=== PATIENT | male | born 1985 | race Caucasian/White ===

== ENCOUNTER 2016-03-30 14:37 | Inpatient (IN) | payer OTHER ==
[~2016-03-30] VITALS: Ht 193 cm; Wt 97.0 kg
[~2016-03-30 14:37] MED LIST: DAKI0.12 TOPICAL; LACTCAP8 PO; LYRI200C PO; VESI5TAB PO
[2016-03-30 14:39] VITALS: BP 123/67; PULSE 90; RESP 15; TEMP 98.2; O2SAT 96
[2016-03-30 15:53] VITALS: BP 163/66; PULSE 79; RESP 15; O2SAT 98
[2016-03-30] MEDS ORDERED: MSIR15 PO (16:48)
[2016-03-30] MEDS ORDERED: SOMA350T PO (16:48)
[2016-03-30] MEDS ORDERED: MORP1TAB25 PO (16:48)
[2016-03-30] MEDS ORDERED: BACL10TA PO (16:48)
[2016-03-30] MEDS ORDERED: ZYVO600T PO (16:48)
[2016-03-30] MEDS ORDERED: LIDO2GEL11 TOPICAL (16:48)
[2016-03-30] MEDS ORDERED: DAKI0.12 TOPICAL (16:50)
[2016-03-30 17:18] LABS: AUTOMATED NEUTROPHIL # 7.3 TH/MM3 (1.8-7.7); BASOPHIL # 0.1 TH/MM3 (0-0.2); BASOPHIL % 0.7 % (0.0-2.0); EOSINOPHIL # 0.1 TH/MM3 (0-0.4); EOSINOPHIL % 1.1 % (0.0-4.0); HEMATOCRIT 24.1 % (39.0-51.0); HEMO FLAGS DIFF FINAL; LYMPHOCYTE # 1.3 TH/MM3 (1.0-4.8); MEAN CELL VOLUME 76.8 FL (80.0-100.0); MEAN CORPUSCULAR HEMOGLOBIN 25.3 PG (27.0-34.0); MEAN CORPUSCULAR HGB CONC 32.9 % (32.0-36.0); MONO % 3.9 % (0.0-8.0); NEUT % 80.3 % (16.0-70.0); PLATELET COUNT 325 TH/MM3 (150-450); RED BLOOD COUNT 3.13 MIL/MM3 (4.50-5.90); RED CELL DISTRIBUTION WIDTH 18.3 % (11.6-17.2)
[2016-03-30 17:28] LABS: ANION GAP 8 MEQ/L (5-15); AST (GOT) 5 U/L (15-37); BICARBONATE 28.5 MEQ/L (21.0-32.0); BLOOD UREA NITROGEN 33 MG/DL (7-18); CHLORIDE 97 MEQ/L (98-107); GLOMERULAR FILTRATION RATE 22 ML/MIN (>89); POTASSIUM 3.9 MEQ/L (3.5-5.1); SODIUM (NA) 133 MEQ/L (136-145)
[2016-03-30 17:31] LABS: ALKALINE PHOSPHATASE 75 U/L (45-117); ALT (GPT) 12 U/L (12-78); TOTAL BILIRUBIN ADULT 0.3 MG/DL (0.2-1.0)
[2016-03-30 18:14] LABS: BACTERIA, URINE MANY /hpf; BLOOD, URINE LARGE (NEG); GLUCOSE,URINE NEG (NEG); KETONE, URINE NEG (NEG); MUCUS URINE FEW /lpf (OCC); NITRITE,URINE NEG (NEG); PH, URINE 5.5 (5.0-8.5); URINE COLOR YELLOW (YELLW/STRAW)
[2016-03-30 18:15] LABS: COMMENT (UR) CATH-CULTURE IND; CULTURE IF INDICATED CATH CULTURE IND
[2016-03-30] MEDS ORDERED: SODIUM CHLORIDE 0.9% FLUSH 5 ML FLUSH FLUSH PRN (18:15)
[2016-03-30] MEDS ORDERED: MAGNESIUM HYDROXIDE SUSP 30 ML CUP PO PRN (18:15)
[2016-03-30] MEDS ORDERED: SENNOSIDES 8.6 MG TAB PO PRN (18:15)
[2016-03-30] MEDS ORDERED: BISACODYL 10 MG SUPP PR PRN (18:15)
[2016-03-30] MEDS ORDERED: PROCHLORPERAZINE 25 MG SUPP PR PRN (18:15)
--- NOTE | 2016-03-30 18:24 | HHI.HP ---
[facility]PI [facility] Primary Care Physician No Primary Care Physician Admission Diagnosis Acute renal failure Diagnoses: Travel History International Travel<30 Days: No Contact w/Intl Traveler <30 Da: No Traveled to Known Affected Are: No History of Present Illness 30 year old male with past mental history of TBI/spinal injury/paraplegia, spinal hardware infection, RASHAD/AOCD, chronic pain was sent in for acute kidney injury. The patient is on antibiotics as outpatient and his labs are followed by his infectious disease specialist, Dr. Arzola. He states he was sent in because his creatinine had increased again. 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 The patient states that for the past 10 days he's been vomiting at least daily. He does have some left upper quadrant abdominal pain. He reports a history of pancreatitis. He states that usually before he vomits he gets dizzy. He denies any relieving factors. He denies any fevers or chills. Denies any chest pain, palpitations, cough. He does self catheterize due to paraplegia. He actually reports that over the last week his urine output has increased, states the previous week his urine output seemed to have decreased. He denies any diarrhea. He continues to get home health nursing for wound VAC changes. 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 Current deficiency anemia/anemia of chronic disease Chronic pain History of pancreatitis Past Surgical History Back surgery, T11-L1 fusion with hardware placement and removal Reported Medications Probiotic (Lactobacillus Acidophilus) 1 Cap Cap 1 Cap PO BID Vesicare (Solifenacin) 5 Mg Tab 5 Mg PO DAILY Dakins Solution Quarter Strength Topical (Sodium Hypochlorite Topical) 0.125% Soln 1 Applic TOPICAL DAILY Apply to affected area(s) Lidocaine Topical (Lidocaine HCl) 2 % Jel 1 Applic TOPICAL DAILY PRN Soma (Carisoprodol) 350 Mg Tab 350 Mg PO Q8HR PRN Baclofen 10 Mg Tab 10 Mg PO TID Morphine ER (Morphine Sulfate) 30 Mg Tab 30 Mg PO TID Morphine IR (Morphine Sulfate) 15 Mg Tab 15 Mg PO Q4H PRN Zyvox (Linezolid) 600 Mg Tab 600 Mg PO BID 14 Days Lyrica (Pregabalin) 200 Mg Cap 200 Mg PO BID Allergies: Coded Allergies: Vancomycin (Verified Adverse Reaction, Intermediate, 03/30/16) *MDRO Multi-Drug Resistant Organism (Verified Adverse Reaction, Unknown, 03/30/16) 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 (back-02/11/16) extensively drug resistant Pseudomonas aeruginosa (urine) - 03/03/16 Active Ordered Medications Current Medications Medications (Trade) Dose Ordered Sig/Iam Route Start Time Stop Time Status Last Admin (NS 1000 ml Inj) 1,000 ml @ 100 mls/hr Q10H IV 03/30/16 18:14 UNV (NS Flush) 2 ml UNSCH PRN FLUSH 03/30/16 18:15 UNV (NS Flush) 2 ml BID FLUSH 03/30/16 21:00 UNV (Tylenol) 650 mg Q4H PRN PO 03/30/16 18:15 UNV (Zofran Inj) 4 mg Q6H PRN IVP 03/30/16 18:15 UNV (Compazine Supp) 25 mg Q12H PRN NH 03/30/16 18:15 UNV (Dulcolax Supp) 10 mg DAILY PRN NH 03/30/16 18:15 UNV (Milk Of Magnesia Liq) 30 ml Q12H PRN PO 03/30/16 18:15 UNV (Senokot) 17.2 mg Q12H PRN PO 03/30/16 18:15 UNV (Lovenox Inj) 30 mg Q24H SQ 03/30/16 18:15 UNV Family History Reviewed, no family history pertinent to current chief complaint Social History Occasional snuff use Denies any alcohol or drug use Physical Exam Vital Signs Vital Signs Date Time Temp Pulse Resp B/P Pulse Ox O2 Delivery O2 Flow Rate FiO2 03/30/16 15:53 73 15 98 Room Air 03/30/16 15:53 79 15 163/66 98 Room Air 03/30/16 14:39 98.2 90 15 123/67 96 Physical Exam GENERAL: Well-developed well-nourished. In no acute distress. SKIN: Warm and dry. Wound VAC in place over the thoracic spine. HEENT: Normocephalic. Pupils equal and round. Mucous membranes pink and moist. CARDIOVASCULAR: Regular rate and rhythm. No murmur appreciated. RESPIRATORY: No accessory muscle use. Clear to auscultation. Breath sounds equal bilaterally. GASTROINTESTINAL: Abdomen soft, LUE TTP, nondistended. Bowel sounds x4. No CVA tenderness. MUSCULOSKELETAL: No obvious deformities. No clubbing or cyanosis. No edema. NEUROLOGICAL: Awake and alert. Lower extremity paralysis. Strength in the upper extremities. Normal speech. PSYCHIATRIC: Appropriate mood and affect; insight and judgment normal. Laboratory Laboratory Tests Test 03/30/16 03/30/16 16:40 18:00 White Blood Count 9.0 Red Blood Count 3.13 Hemoglobin 7.9 Hematocrit 24.1 Mean Corpuscular Volume 76.8 Mean Corpuscular Hemoglobin 25.3 Mean Corpuscular Hemoglobin 32.9 Concent Red Cell Distribution Width 18.3 Platelet Count 325 Mean Platelet Volume 7.7 Neutrophils (%) (Auto) 80.3 Lymphocytes (%) (Auto) 14.0 Monocytes (%) (Auto) 3.9 Eosinophils (%) (Auto) 1.1 Basophils (%) (Auto) 0.7 Neutrophils # (Auto) 7.3 Lymphocytes # (Auto) 1.3 Monocytes # (Auto) 0.4 Eosinophils # (Auto) 0.1 Basophils # (Auto) 0.1 CBC Comment DIFF FINAL Differential Comment Sodium Level 133 Potassium Level 3.9 Chloride Level 97 Carbon Dioxide Level 28.5 Anion Gap 8 Blood Urea Nitrogen 33 Creatinine 3.32 Estimat Glomerular Filtration 22 Rate Random Glucose 89 Calcium Level 9.4 Total Bilirubin 0.3 Aspartate Amino Transf 5 (AST/SGOT) Alanine Aminotransferase 12 (ALT/SGPT) Alkaline Phosphatase 75 Total Protein 7.8 Albumin 2.8 Lipase 60 Urine Color YELLOW Urine Turbidity CLOUDY Urine pH 5.5 Urine Specific [place] 1.017 Urine Protein 100 Urine Glucose (UA) NEG Urine Ketones NEG Urine Occult Blood LARGE Urine Nitrite NEG Urine Bilirubin NEG Urine Urobilinogen LESS THAN 2.0 Urine Leukocyte Esterase LARGE Urine RBC Urine WBC Urine WBC Clumps MANY Urine Bacteria MANY Urine Mucus FEW Microscopic Urinalysis Comment CATH-CULTURE IND Date/Time Procedure Status Source Growth 03/30/16 18:00 Urine Culture Received Urine Catheterized Urine Pending Result Diagram: 03/30/16 1640 03/30/16 1640 Assessment and Plan Problem List: (1) Chronic anemia ICD Code: D64.9 Status: Chronic (2) Neurogenic bladder ICD Code: N31.9 Status: Chronic (3) Paraplegia ICD Code: G82.20 Status: Chronic (4) UTI (urinary tract infection) ICD Code: N39.0 Status: Acute (5) Acute kidney injury ICD Code: N17.9 Status: Acute Assessment and Plan 30 year old male with past mental history of TBI/spinal injury/paraplegia, spinal hardware infection, RASHAD/AOCD, chronic pain was sent in for acute kidney injury Acute kidney injury: Likely secondary to GI losses. Creatinine 3.32, previously 1.77 on 03/25/16. Renal ultrasound 03/05 showed mild increase in echogenicity. IVF. Follow-up BMP. Consult nephrology. LUQ Abdominal pain and vomiting: Unclear etiology. Lipase within normal limits. Consult gastroenterology. Supportive care with IVF and antiemetics. Abnormal UA: UA with evidence of possible infection. The patient self catheterizes. Previous urine culture with resistant Pseudomonas, sensitive only to Zosyn, will give renally adjusted IV Zosyn and consult patient's infectious disease specialist. Follow up wound culture. Chronic back wound with wound VAC: backend developer consult to continue wound VAC care. History of TBI and spinal injury with resultant paraplegia and chronic pain: Chronic, stable. Continue Lyrica, topical lidocaine, Soma as needed, baclofen scheduled, morphine ER scheduled, morphine IR as needed. Iron deficiency anemia/anemia of chronic disease: Hemoglobin 7.9, previously 8.1 on previous admission. Chronic, stable. DVT prophylaxis: SCDs Written by Shalom Knutson, acting as scribe for Dr. Case on 03/30/16 at 18:52. The documentation accurately reflects the work performed [id number] by me Dr. Case on 03/30/16 at 18:52. Discussed Condition With Patient with family at bedside Discussed with ED physician Problem Qualifiers (1) UTI (urinary tract infection): Qualified Code: N39.0 - Urinary tract infection without hematuria, site unspecified Shalom Knutson Mar 30, 2016 18:23 Subha Case MD Mar 30, 2016 19:28
[2016-03-30] MEDS ORDERED: LIDOCAINE 2% JELLY 30 ML TUBE TOPICAL PRN (18:30)
--- NOTE | 2016-03-30 18:40 | PD ---
HPI Chief Complaint: Abnormal Results Time Seen by Provider: 15:52 Travel History International Travel<30 days: No Contact w/Intl Traveler<30days: No Traveled to known affect area: No History of Present Illness HPI Patient is a 30-year-old male sent in by Dr. Arzola due to increasing creatinine. Patient had an injury to T7 6 months ago and is currently paralyzed. He developed an infection in his back and has been on antibiotics for this. Most recently he is on Linezolid. He had blood work drawn that showed he had a creatinine that was over 3 and was told to come to the emergency department. He says he has been feeling nauseous with some vomiting. He says he has had some left-sided abdominal pain. Currently he does not feel nauseous. He says he has noticed that his urine seems to be more cloudy lately. He self catheters to urinate. He denies any other complaints at this time. PFSH Past Medical History Autoimmune Disease: No Heart Rhythm Problems: No Cancer: No Cardiovascular Problems: Yes High Cholesterol: No Chest Pain: No Congestive Heart Failure: No Diminished Hearing: No Deep Vein Thrombosis: Yes (left arm) Endocrine: No Genitourinary: Yes (RECURRENT UTI, NEUROGENIC BLADDER) Hypertension: Yes Immune Disorder: No Implanted Vascular Access Dvce: No Musculoskeletal: Yes (PARAPLEGIA) Neurologic: Yes (SPINAL INJURY AT T7) Psychiatric: No Reproductive: No Respiratory: No Past Surgical History Body Medical Devices: UPPER TORSO BRACE Joint Replacement: Yes (hardware in femur and back ) Neurologic Surgery: Yes Pacemaker: No Other Surgery: Yes Social History Alcohol Use: No Tobacco Use: No (CHEWING TOBACCO DAILY) Substance Use: No Allergies-Medications (Allergen,Severity, Reaction): Coded Allergies: Vancomycin (Verified Adverse Reaction, Intermediate, 03/30/16) *MDRO Multi-Drug Resistant Organism (Verified Adverse Reaction, Unknown, 03/30/16) 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 (back-02/11/16) extensively drug resistant Pseudomonas aeruginosa (urine) - 03/03/16 Reported Meds & Prescriptions Reported Meds & Active Scripts Active Probiotic (Lactobacillus Acidophilus) 1 Cap Cap 1 Cap PO BID Vesicare (Solifenacin) 5 Mg Tab 5 Mg PO DAILY Reported Dakins Solution Quarter Strength Topical (Sodium Hypochlorite Topical) 0.125% Soln 1 Applic TOPICAL DAILY Apply to affected area(s) Lidocaine Topical (Lidocaine HCl) 2 % Jel 1 Applic TOPICAL DAILY PRN Soma (Carisoprodol) 350 Mg Tab 350 Mg PO Q8HR PRN Baclofen 10 Mg Tab 10 Mg PO TID Morphine ER (Morphine Sulfate) 30 Mg Tab 30 Mg PO TID Morphine IR (Morphine Sulfate) 15 Mg Tab 15 Mg PO Q4H PRN Zyvox (Linezolid) 600 Mg Tab 600 Mg PO BID 14 Days Lyrica (Pregabalin) 200 Mg Cap 200 Mg PO BID Review of Systems Except as stated in HPI: all other systems reviewed are Neg General / Constitutional: No: Fever, Chills HENT: No: Headaches, Lightheadedness Cardiovascular: No: Chest Pain or Discomfort Respiratory: No: Shortness of Breath Gastrointestinal: Positive: Nausea, Abdominal Pain Musculoskeletal: No: Myalgias Skin: No Rash, No Change in Pigmentation Neurologic: No: Weakness, Dizziness Physical Exam Narrative GENERAL: Awake and alert, in no acute distress SKIN: Warm and dry. Wound VAC in place on the back. HEAD: Atraumatic. Normocephalic. EYES: Pupils equal and round. No scleral icterus. ENT: Mucous membranes pink and moist. NECK: Trachea midline. No JVD. CARDIOVASCULAR: Regular rate and rhythm. No murmur appreciated. RESPIRATORY: No accessory muscle use. Clear to auscultation. Breath sounds equal bilaterally. GASTROINTESTINAL: Abdomen soft, non-tender, nondistended. MUSCULOSKELETAL: No obvious deformities. No clubbing. No cyanosis. Bilateral 2 + edema of the lower extremities. NEUROLOGICAL: Awake and alert. No obvious cranial nerve deficits. Unable to move his lower extremities. Normal speech. PSYCHIATRIC: Appropriate mood and affect; insight and judgment normal. Data Data Last Documented VS Vital Signs Date Time Temp Pulse Resp B/P Pulse Ox O2 Delivery O2 Flow Rate FiO2 03/30/16 15:53 73 15 98 Room Air 03/30/16 15:53 163/66 03/30/16 14:39 98.2 Orders Complete Blood Count With Diff (03/30/16 16:04) Comprehensive Metabolic Panel (03/30/16 16:04) Lipase (03/30/16 16:04) Consult Vascular Access Team (03/30/16 ) Urinalysis - C+S If Indicated (03/30/16 17:57) Admit Order (Ed Use Only) (03/30/16 ) Labs Laboratory Tests Test 03/30/16 03/30/16 16:40 18:00 White Blood Count 9.0 TH/MM3 Red Blood Count 3.13 MIL/MM3 Hemoglobin 7.9 GM/DL Hematocrit 24.1 % Mean Corpuscular Volume 76.8 FL Mean Corpuscular Hemoglobin 25.3 PG Mean Corpuscular Hemoglobin 32.9 % Concent Red Cell Distribution Width 18.3 % Platelet Count 325 TH/MM3 Mean Platelet Volume 7.7 FL Neutrophils (%) (Auto) 80.3 % Lymphocytes (%) (Auto) 14.0 % Monocytes (%) (Auto) 3.9 % Eosinophils (%) (Auto) 1.1 % Basophils (%) (Auto) 0.7 % Neutrophils # (Auto) 7.3 TH/MM3 Lymphocytes # (Auto) 1.3 TH/MM3 Monocytes # (Auto) 0.4 TH/MM3 Eosinophils # (Auto) 0.1 TH/MM3 Basophils # (Auto) 0.1 TH/MM3 CBC Comment DIFF FINAL Differential Comment Sodium Level 133 MEQ/L Potassium Level 3.9 MEQ/L Chloride Level 97 MEQ/L Carbon Dioxide Level 28.5 MEQ/L Anion Gap 8 MEQ/L Blood Urea Nitrogen 33 MG/DL Creatinine 3.32 MG/DL Estimat Glomerular Filtration 22 ML/MIN Rate Random Glucose 89 MG/DL Calcium Level 9.4 MG/DL Total Bilirubin 0.3 MG/DL Aspartate Amino Transf 5 U/L (AST/SGOT) Alanine Aminotransferase 12 U/L (ALT/SGPT) Alkaline Phosphatase 75 U/L Total Protein 7.8 GM/DL Albumin 2.8 GM/DL Lipase 60 U/L Urine Color YELLOW Urine Turbidity CLOUDY Urine pH 5.5 Urine Specific [place] 1.017 Urine Protein 100 mg/dL Urine Glucose (UA) NEG mg/dL Urine Ketones NEG mg/dL Urine Occult Blood LARGE Urine Nitrite NEG Urine Bilirubin NEG Urine Urobilinogen LESS THAN 2.0 MG/DL Urine Leukocyte Esterase LARGE Urine RBC /hpf Urine WBC /hpf Urine WBC Clumps MANY Urine Bacteria MANY /hpf Urine Mucus FEW /lpf Microscopic Urinalysis Comment CATH-CULTURE IND MDM Medical Decision Making Medical Screen Exam Complete: Yes Emergency Medical Condition: Yes Medical Record Reviewed: Yes Differential Diagnosis Acute kidney injury versus renal failure versus dehydration versus uremia Narrative Course Patient is a 30-year-old male who comes in because his doctor told him his creatinine was elevated. IV established, labs sent. Creatinine is 3.3 to today. This is up from 1.77 on March 25. Patient's urine appears very dirty. He has been on broad-spectrum antibiotics, so antibiotic choice will have to be by ID. Patient admitted for further management. Diagnosis Primary Impression: Acute renal failure Qualified Code: N17.9 - Acute renal failure, unspecified acute renal failure type Admitting Information Admitting Physician Requests: Admit Sakina Lobo MD Mar 30, 2016 18:39
[2016-03-30 20:00] VITALS: BP 135/77; PULSE 60; RESP 18; O2SAT 100
[2016-03-30] MEDS: ENOXAPARIN SODIUM 30 MG/0.3 ML SYRINGE SQ SCH (20:27)
[2016-03-30] MEDS: SODIUM CHLOR 0.9% 1000 ML INJ 1,000 ML IV SCH (20:28)
[2016-03-30] MEDS: PIPERACIL-TAZO 2.25 GM PREMIX 50 ML IV SCH (20:28)
[2016-03-30 21:07] VITALS: O2SAT 100
[2016-03-30] MEDS: LINEZOLID 600 MG TAB PO SCH (21:52)
[2016-03-30] MEDS: LACTOBACILLUS ACIDOPHILUS TAB PO SCH (21:52)
[2016-03-30] MEDS: PREGABALIN 100 MG CAP PO SCH (21:52)
[2016-03-30] MEDS: SODIUM CHLORIDE 0.9% FLUSH 5 ML FLUSH FLUSH SCH (21:53)
[2016-03-30] MEDS ORDERED: CELE20TA PO (21:56)
[2016-03-31] VITALS (7 sets, daily range): BP systolic 117–147; BP diastolic 63–81; PULSE 62–94; RESP 18–20; TEMP 96.3–97.3; O2SAT 94–100
[2016-03-31] MEDS: PIPERACIL-TAZO 2.25 GM PREMIX 50 ML IV SCH ×4 (02:23→23:19)
[2016-03-31 06:57] LABS: AUTOMATED NEUTROPHIL # 6.4 TH/MM3 (1.8-7.7); BASOPHIL % 0.6 % (0.0-2.0); EOSINOPHIL # 0.2 TH/MM3 (0-0.4); EOSINOPHIL % 2.4 % (0.0-4.0); HEMATOCRIT 22.9 % (39.0-51.0); HEMO FLAGS DIFF FINAL; LYMPH % 15.2 % (9.0-44.0); LYMPHOCYTE # 1.3 TH/MM3 (1.0-4.8); MEAN CELL VOLUME 77.1 FL (80.0-100.0); MEAN CORPUSCULAR HEMOGLOBIN 25.2 PG (27.0-34.0); MEAN CORPUSCULAR HGB CONC 32.6 % (32.0-36.0); MONO % 6.2 % (0.0-8.0); NEUT % 75.6 % (16.0-70.0); PLATELET COUNT 288 TH/MM3 (150-450); RED BLOOD COUNT 2.96 MIL/MM3 (4.50-5.90); WHITE BLOOD COUNT 8.4 TH/MM3 (4.0-11.0)
[2016-03-31 07:19] LABS: BICARBONATE 29.2 MEQ/L (21.0-32.0); POTASSIUM 3.7 MEQ/L (3.5-5.1)
[2016-03-31] MEDS: SODIUM CHLORIDE 0.9% FLUSH 5 ML FLUSH FLUSH SCH ×2 (09:00→21:00)
--- NOTE | 2016-03-31 10:10 | HHI.PR ---
Subjective Remarks Still with abdominal pain mainly left upper quadrant , some nausea but no vomiting . N fever or chills. No diarrhea. Objective Vitals Vital Signs Date Time Temp Pulse Resp B/P Pulse Ox O2 Delivery O2 Flow Rate FiO2 03/31/16 08:12 97.3 80 20 118/70 96 03/31/16 04:00 97.0 80 18 126/70 97 03/31/16 01:00 97.1 94 18 126/81 94 03/30/16 21:07 100 03/30/16 20:00 60 18 135/77 100 Room Air 03/30/16 15:53 73 15 98 Room Air 03/30/16 15:53 79 15 163/66 98 Room Air 03/30/16 14:39 98.2 90 15 123/67 96 I/O 03/30/16 03/30/16 03/30/16 03/31/16 03/31/16 03/31/16 07:00 15:00 23:00 07:00 15:00 23:00 Intake Total 929 ml Output Total 1500 ml Balance -571 ml Intake Oral 240 ml IV Total 689 ml Output Urine Total 1500 ml # Bowel Movements 1 Result Diagram: 03/31/16 0608 03/31/16 0608 Imaging Last Impressions Renal Ultrasound 03/31/16 0000 Signed Impressions: Service Date/Time: Thursday, March 31, 2016 11:35 - CONCLUSION: Kidneys are normal other than questionable minimal increase echotexture the cortex. Cortical medullary junction is well-maintained with no evidence hydronephrosis. Sam Montiel MD Objective Remarks GENERAL: Well-developed well-nourished. In no acute distress. SKIN: Warm and dry. Wound VAC in place over the thoracic spine. HEENT: Normocephalic. Pupils equal and round. Mucous membranes pink and moist. CARDIOVASCULAR: Regular rate and rhythm. No murmur appreciated. RESPIRATORY: No accessory muscle use. Clear to auscultation. Breath sounds equal bilaterally. GASTROINTESTINAL: Abdomen soft, LUE TTP, nondistended. Bowel sounds x4. No CVA tenderness. MUSCULOSKELETAL: No obvious deformities. No clubbing or cyanosis. No edema. NEUROLOGICAL: Awake and alert. Lower extremity paralysis. Strength in the upper extremities. Normal speech. PSYCHIATRIC: Appropriate mood and affect; insight and judgment normal. A/P Problem List: (1) Chronic anemia ICD Code: D64.9 Status: Chronic (2) Neurogenic bladder ICD Code: N31.9 Status: Chronic (3) Paraplegia ICD Code: G82.20 Status: Chronic (4) UTI (urinary tract infection) ICD Code: N39.0 Status: Acute (5) Acute kidney injury ICD Code: N17.9 Status: Acute Assessment and Plan 30 year old male with past mental history of TBI/spinal injury/paraplegia, spinal hardware infection, RASHAD/AOCD, chronic pain was sent in for acute kidney injury Acute kidney injury: Likely secondary to GI losses. Creatinine 3.32, previously 1.77 on 03/25/16. Improving slowly. Renal ultrasound 03/05 showed mild increase in echogenicity. On IVF. Follow-up BMP. Consult nephrology, appreciate recommendations. LUQ Abdominal pain and vomiting/nausea: Improving. Still with abd pain nausea but o vomiting. Unclear etiology. Lipase within normal limits. Consult gastroenterology. Supportive care with IVF and antiemetics. Abnormal UA: UA with evidence of possible infection. The patient self catheterizes. Previous urine culture with resistant Pseudomonas, sensitive only to Zosyn, will give renally adjusted IV Zosyn and consult patient's infectious disease specialist. Follow up wound culture. Discussed with GI service, plan for EGD if no improvement in 2 days Chronic back wound with wound VAC: grease remover consult to continue wound VAC care. Discussed with wound care nurse, continue wound vac change M-W-F , suction at 125 mm/Hg History of TBI and spinal injury with resultant paraplegia and chronic pain: Chronic, stable. Continue Lyrica, topical lidocaine, Soma as needed, baclofen scheduled, morphine ER scheduled, morphine IR as needed. Iron deficiency anemia/anemia of chronic disease: H/H appears at baseline. Chronic, stable. DVT prophylaxis: SCDs Discussed Condition With Patient, nurse, GI service. Problem Qualifiers (1) UTI (urinary tract infection): Qualified Code: N39.0 - Urinary tract infection without hematuria, site unspecified Subha Case MD Mar 31, 2016 10:10
[2016-03-31] MEDS: PREGABALIN 100 MG CAP PO SCH (10:14)
[2016-03-31] MEDS: SODIUM HYPOCHLORITE 0.125% 500 ML BTL TOPICAL SCH (10:14)
[2016-03-31] MEDS: TOLTERODINE TARTRATE 2 MG CAP LA PO SCH (10:15)
[2016-03-31] MEDS: CITALOPRAM HYDROBROMIDE 20 MG TAB PO SCH (10:15)
[2016-03-31] MEDS: BACLOFEN 10 MG TAB PO SCH ×3 (10:15→18:00)
[2016-03-31] MEDS: LINEZOLID 600 MG TAB PO SCH ×2 (10:15→23:12)
[2016-03-31] MEDS: MORPHINE SULFATE 30 MG CONTROLLED RELEASE TAB PO SCH ×3 (10:15→18:00)
[2016-03-31] MEDS: LACTOBACILLUS ACIDOPHILUS TAB PO SCH ×2 (10:15→23:12)
[2016-03-31] MEDS: SODIUM CHLOR 0.9% 1000 ML INJ 1,000 ML IV SCH ×2 (10:16→14:14)
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
--- NOTE | 2016-03-31 12:39 | RADRPT ---
EXAM DATE/TIME: 03/31/2016 11:35 [facility] COMPARISON: CT ABDOMEN & PELVIS W CONTRAST, February 14, 2016, 21:13. US KIDNEY/RENAL/BLADDER, March 05, 2016 , 16:04. INDICATIONS : Increased BUN and Creatinine. MEDICAL HISTORY : Deep venous thrombosis. Hypertension. Spinal cord injury at T7. Neurogenic bowel and bladder. Parap legia. Depression. Anxiety. SURGICAL HISTORY : Left femur surgery. Right hip surgery. Back surgery. ENCOUNTER: Subsequent ACUITY: 3 weeks PAIN SCORE: 3/10 LOCATION: Bilateral flank MEASUREMENTS: RIGHT KIDNEY: 14.1 x 6.5 x 6.2 cm LEFT KIDNEY: 13.3 x 7.2 x 6.8 cm FINDINGS: RIGHT KIDNEY: Renal cortex is normal in thickness and a questionable increase echotexture of the cortex No hydronep hrosis, stone, or mass. LEFT KIDNEY: Renal cortex is normal in thickness and questionable increased echotexture of cortex.. No hydronephr osis, stone, or mass. BLADDER: Within normal limits given the degree of distension. CONCLUSION: Kidneys are normal other than questionable minimal increase echotexture the cortex. Cortical medullar y junction is well-maintained with no evidence hydronephrosis. Sam Montiel MD on March 31, 2016 at 12:35 Board Certified Radiologist. This report was verified electronically.
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
[2016-03-31] MEDS: MORPHINE SULFATE 15 MG TAB PO PRN (15:04)
[2016-03-31] MEDS ORDERED: ALTEPLASE RECOMBINANT 2 MG VIAL INTRACATH PRN (15:45)
--- NOTE | 2016-03-31 19:27 | PD.ID.CON ---
History of Present Illness Service ID Consult Requested By Dr Case Reason for Consult UTI Primary Care Physician No Primary Care Physician Diagnoses: History of Present Illness KNown to me Multiple previous admissions 2/2 UTI, back infection 30 yo M sp traumatic SCI, spine instrumentation in Nov 2015 2 mos ago admitted for drainage from his back wound he was diagnosed with MRSA infx of his spine stated on vancomycin and developped ARF while on vancomycin ARF copmpletely resolved and pt was dischharged on daptomycin to complete the course of abx 1 week ago pt was noted to have increasing creatinine and CKs while on dapto. Daptoomycin was swiitched to zyvox His CK promptly went down, but creatinine cont to rise and 2 days ago became over 3. He also developped almost 1 week of nausea, vomiting, fever, chills and strong smell to the urine Pt was admitted yday and urine was grossly abnormal with gross pyuria His clx is growing a GNB He is on zosyn 'He feels better He self cath at home and feliciano was placed in the hospital US of kidneus without hydronephrosis Review of Systems ROS Limitations: Uncooperative (very sleepy) Constitutional: COMPLAINS OF: Fatigue, Fever, Chills Gastrointestinal: COMPLAINS OF: Nausea, Vomiting Genitourinary: COMPLAINS OF: Urinary incontinence Musculoskeletal: COMPLAINS OF: Back pain Other as per history of present illness, the rest of 12 point review is negative Past Family Social History Allergies: Coded Allergies: Vancomycin (Verified Adverse Reaction, Intermediate, 03/30/16) *MDRO Multi-Drug Resistant Organism (Verified Adverse Reaction, Unknown, XDR Pseudomonas, MRSA, 04/04/16) 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 (back-02/11/16) extensively drug resistant Pseudomonas aeruginosa (urine) -03/03/16; ESBL Klebsiella Pneumoniae (urine-03/30/16) Past Medical History 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 Social History No Tobacco. No ETOH. No Illicit Drugs. Physical Exam Vital Signs Vital Signs Date Time Temp Pulse Resp B/P Pulse Ox O2 Delivery O2 Flow Rate FiO2 03/31/16 16:00 96.3 76 20 125/65 100 03/31/16 12:09 97.1 71 20 117/63 98 03/31/16 11:30 98 Nasal Cannula 2.00 03/31/16 08:12 97.3 80 20 118/70 96 03/31/16 04:00 97.0 80 18 126/70 97 03/31/16 01:00 97.1 94 18 126/81 94 03/30/16 21:07 100 03/30/16 20:00 60 18 135/77 100 Room Air Physical Exam CONSTITUTIONAL/GENERAL: This is an adequately nourished patient, in no apparent distress. TUBES/LINES/DRAINS: PICC in place RUE site looks OK SKIN: quite pale No jaundice, rashes, Skin temperature appropriate. Not diaphoretic. HEAD: Atraumatic. Normocephalic. EYES: Pupils equal and round and reactive. Extraocular motions intact. No scleral icterus. No injection or drainage. Fundi not examined. ENT: Hearing grossly normal. Nose without bleeding or purulent drainage. Oral mucosae without visible erythema, exudates, masses, or lesions. NECK: Trachea midline. Supple, nontender. CARDIOVASCULAR: Regular rate and rhythm without murmurs, gallops, or rubs. No JVD. Peripheral pulses symmetric. RESPIRATORY/CHEST: Symmetric, unlabored respirations. Clear to auscultation. Breath sounds equal bilaterally. No wheezes, rales, or rhonchi. GASTROINTESTINAL: Abdomen soft, non-tender, nondistended. No hepato-splenomegaly , or palpable masses. No guarding. Bowel sounds present. GENITOURINARY: Without palpable bladder distension. Feliciano catheter in place with somewhat cloudy yellow urine MUSCULOSKELETAL: Extremities without clubbing, cyanosis, Trace aamount of soft pitting edema. No mottling or clubbing. LYMPHATICS: No palpable cervical or supraclavicular adenopathy. NEUROLOGICAL: Awake and alert. Paraplegia. Follows commands. Speech normal Moves b/l upper extremities. PSYCHIATRIC: No obvious anxiety/depression. no apparent hallucinations or other psychotic thought process. Laboratory Laboratory Tests Test 03/31/16 06:08 White Blood Count 8.4 Red Blood Count 2.96 Hemoglobin 7.5 Hematocrit 22.9 Mean Corpuscular Volume 77.1 Mean Corpuscular Hemoglobin 25.2 Mean Corpuscular Hemoglobin 32.6 Concent Red Cell Distribution Width 18.0 Platelet Count 288 Mean Platelet Volume 7.7 Neutrophils (%) (Auto) 75.6 Lymphocytes (%) (Auto) 15.2 Monocytes (%) (Auto) 6.2 Eosinophils (%) (Auto) 2.4 Basophils (%) (Auto) 0.6 Neutrophils # (Auto) 6.4 Lymphocytes # (Auto) 1.3 Monocytes # (Auto) 0.5 Eosinophils # (Auto) 0.2 Basophils # (Auto) 0.0 CBC Comment DIFF FINAL Differential Comment Sodium Level 138 Potassium Level 3.7 Chloride Level 100 Carbon Dioxide Level 29.2 Anion Gap 9 Blood Urea Nitrogen 36 Creatinine 3.22 Estimat Glomerular Filtration 23 Rate Random Glucose 97 Calcium Level 9.2 Date/Time Procedure Status Source Growth 03/30/16 18:00 Urine Culture - Preliminary Resulted Urine Catheterized Urine Gram Negative Aquiles Result Diagram: 03/31/16 0608 03/31/16 0608 Imaging Last Impressions Renal Ultrasound 03/31/16 0000 Signed Impressions: Service Date/Time: Thursday, March 31, 2016 11:35 - CONCLUSION: Kidneys are normal other than questionable minimal increase echotexture the cortex. Cortical medullary junction is well-maintained with no evidence hydronephrosis. 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 2/2 dehydration - slightly better T spine infected wound with hardware in place , MRSA; - s/p I+D, VAC - side effect to vanco: ARF - side effect to dapto: elevated CKs - cont zosyn - cont zyvox - fu GNB in the urine - will adjust abx per clx - chk BC Mamie Arzola MD Mar 31, 2016 19:27
[2016-03-31 20:45] LABS: FERRITIN 525 NG/ML (26-388); TRANSFERRIN IRON PROFILE 140 MG/DL (200-360)
[2016-03-31] MEDS: ENOXAPARIN SODIUM 30 MG/0.3 ML SYRINGE SQ SCH (23:13)
[2016-03-31] MEDS: PREGABALIN 75 MG CAP PO SCH (23:13)
[2016-04-01] VITALS (7 sets, daily range): BP systolic 102–158; BP diastolic 56–99; PULSE 58–84; RESP 18–20; TEMP 95.7–97.8; O2SAT 93–100
[2016-04-01] MEDS: SODIUM CHLOR 0.9% 1000 ML INJ 1,000 ML IV SCH ×2 (00:14→20:14)
[2016-04-01] MEDS: PIPERACIL-TAZO 2.25 GM PREMIX 50 ML IV SCH ×3 (03:33→13:27)
[2016-04-01 06:26] LABS: AUTOMATED NEUTROPHIL # 4.5 TH/MM3 (1.8-7.7); BASOPHIL % 0.8 % (0.0-2.0); EOSINOPHIL # 0.1 TH/MM3 (0-0.4); EOSINOPHIL % 1.8 % (0.0-4.0); HEMATOCRIT 21.6 % (39.0-51.0); LYMPH % 21.5 % (9.0-44.0); LYMPHOCYTE # 1.3 TH/MM3 (1.0-4.8); MEAN CORPUSCULAR HGB CONC 32.1 % (32.0-36.0); MONO % 4.6 % (0.0-8.0); NEUT % 71.3 % (16.0-70.0); PLATELET COUNT 286 TH/MM3 (150-450); RED BLOOD COUNT 2.77 MIL/MM3 (4.50-5.90); WHITE BLOOD COUNT 6.3 TH/MM3 (4.0-11.0)
[2016-04-01 06:35] LABS: HEMO FLAGS DIFF FINAL
[2016-04-01] MEDS ORDERED: SODIUM CHLOR 0.9% 250 ML INJ 250 ML IV ONE (06:45)
[2016-04-01] MEDS ORDERED: FUROSEMIDE 20 MG/2 ML VIAL IV ONE (06:45)
[2016-04-01 06:57] LABS: BICARBONATE 28.4 MEQ/L (21.0-32.0); MAGNESIUM 1.7 MG/DL (1.5-2.5); POTASSIUM 3.9 MEQ/L (3.5-5.1)
--- NOTE | 2016-04-01 08:08 | HHI.PR ---
Subjective Remarks HGB drop to 6.9, transfusing 2 uPRBCs. Feels tired. Denies having any pain. No fever or chills. No n/v/d/c. Objective Vitals Vital Signs Date Time Temp Pulse Resp B/P Pulse Ox O2 Delivery O2 Flow Rate FiO2 04/01/16 04:00 97.8 60 20 102/56 97 04/01/16 01:37 18 04/01/16 00:00 97.2 84 20 152/90 97 03/31/16 20:00 96.6 62 20 147/80 99 03/31/16 16:00 96.3 76 20 125/65 100 03/31/16 12:09 97.1 71 20 117/63 98 03/31/16 11:30 98 Nasal Cannula 2.00 03/31/16 08:12 97.3 80 20 118/70 96 I/O 03/31/16 03/31/16 03/31/16 04/01/16 04/01/16 04/01/16 07:00 15:00 23:00 07:00 15:00 23:00 Intake Total 929 ml 1200 ml 480 ml 480 ml Output Total 1500 ml 1100 ml 400 ml 900 ml Balance -571 ml 100 ml 80 ml -420 ml Intake Oral 240 ml 1200 ml 480 ml 480 ml IV Total 689 ml Output Urine Total 1500 ml 1100 ml 400 ml 900 ml # Bowel Movements 1 0 0 0 Result Diagram: 04/01/16 0408 04/01/16 0408 Imaging Last Impressions Renal Ultrasound 03/31/16 0000 Signed Impressions: Service Date/Time: Thursday, March 31, 2016 11:35 - CONCLUSION: Kidneys are normal other than questionable minimal increase echotexture the cortex. Cortical medullary junction is well-maintained with no evidence hydronephrosis. Sam Montiel MD Objective Remarks GENERAL: Well-developed well-nourished. In no acute distress. SKIN: Warm and dry. Wound VAC in place over the thoracic spine. HEENT: Normocephalic. Pupils equal and round. Mucous membranes pink and moist. CARDIOVASCULAR: Regular rate and rhythm. No murmur appreciated. RESPIRATORY: No accessory muscle use. Clear to auscultation. Breath sounds equal bilaterally. GASTROINTESTINAL: Abdomen soft, LUE TTP, nondistended. Bowel sounds x4. No CVA tenderness. MUSCULOSKELETAL: No obvious deformities. No clubbing or cyanosis. No edema. NEUROLOGICAL: Awake and alert. Lower extremity paralysis. Strength in the upper extremities. Normal speech. PSYCHIATRIC: Appropriate mood and affect; insight and judgment normal. A/P Problem List: (1) Chronic anemia ICD Code: D64.9 Status: Chronic (2) Neurogenic bladder ICD Code: N31.9 Status: Chronic (3) Paraplegia ICD Code: G82.20 Status: Chronic (4) UTI (urinary tract infection) ICD Code: N39.0 Status: Acute (5) Acute kidney injury ICD Code: N17.9 Status: Acute Assessment and Plan 30 year old male with past mental history of TBI/spinal injury/paraplegia, spinal hardware infection, RASHAD/AOCD, chronic pain was sent in for acute kidney injury Acute kidney injury: Likely secondary to GI losses. Creatinine 3.32, previously 1.77 on 03/25/16. Improving slowly. Renal ultrasound 03/05 showed mild increase in echogenicity. On IVF. Follow-up BMP. Consult nephrology, appreciate recommendations. Acute on chronic anemia. Iron deficiency anemia/anemia of chronic disease. Noted with drop in H/H 04/01/16. Transfuse 2PRBCs. Monitor H/H and transfuse as indicated. LUQ Abdominal pain and vomiting/nausea: Improving. Still with abd pain nausea but o vomiting. Unclear etiology. Lipase within normal limits. Consult gastroenterology. Supportive care with IVF and antiemetics. Abnormal UA: UA with evidence of possible infection. The patient self catheterizes. Previous urine culture with resistant Pseudomonas, sensitive only to Zosyn, will give renally adjusted IV Zosyn and consult patient's infectious disease specialist. Follow up wound culture. 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 Discussed with wound care nurse, continue wound vac change M-W- , suction at 125 mm/Hg History of TBI and spinal injury with resultant paraplegia and chronic pain: Chronic, stable. Continue Lyrica, topical lidocaine, Soma as needed, baclofen scheduled, morphine ER scheduled, morphine IR as needed. DVT prophylaxis: SCDs Discussed Condition With Patient, nurse, family at bedside. Problem Qualifiers (1) UTI (urinary tract infection): Qualified Code: N39.0 - Urinary tract infection without hematuria, site unspecified Subha Case MD Apr 01, 2016 08:08
[2016-04-01] MEDS: LACTOBACILLUS ACIDOPHILUS TAB PO SCH ×2 (09:00→21:15)
[2016-04-01] MEDS: SODIUM CHLORIDE 0.9% FLUSH 5 ML FLUSH FLUSH SCH ×2 (09:00→21:16)
[2016-04-01] MEDS: LINEZOLID 600 MG TAB PO SCH ×2 (09:24→21:15)
[2016-04-01] MEDS: MORPHINE SULFATE 30 MG CONTROLLED RELEASE TAB PO SCH ×3 (09:24→18:00)
[2016-04-01] MEDS: TOLTERODINE TARTRATE 2 MG CAP LA PO SCH (09:24)
[2016-04-01] MEDS: PREGABALIN 75 MG CAP PO SCH ×2 (09:25→21:15)
[2016-04-01] MEDS: CITALOPRAM HYDROBROMIDE 20 MG TAB PO SCH (09:25)
[2016-04-01] MEDS: BACLOFEN 10 MG TAB PO SCH ×3 (09:25→18:00)
[2016-04-01] MEDS ORDERED: MISCELLANEOUS PHARMACY INFORMATION XX PRN (14:00)
[2016-04-01] MEDS ORDERED: ASP: Documented ESBL, MDR A baumannii or P. aeruginosa XX PRN (14:00)
[2016-04-01] MEDS ORDERED: ERTAPENEM INJ 500 MG in SODIUM CHLORIDE 0.9% INJ 100 ML IV SCH (16:00)
[2016-04-01] MEDS: ENOXAPARIN SODIUM 30 MG/0.3 ML SYRINGE SQ SCH (21:16)
[2016-04-01] MEDS ORDERED: SODIUM POLYSTYRENE SULFONATE SUSP 15 GM/60 ML CUP PO ONE (21:30)
[2016-04-02] VITALS (8 sets, daily range): BP systolic 145–178; BP diastolic 90–106; PULSE 61–80; RESP 16–20; TEMP 96.8–98.3; O2SAT 97–99
[2016-04-02] MEDS: SODIUM CHLOR 0.9% 1000 ML INJ 1,000 ML IV SCH ×3 (05:38→23:43)
[2016-04-02 06:59] LABS: AUTOMATED NEUTROPHIL # 5.5 TH/MM3 (1.8-7.7); BASOPHIL % 0.7 % (0.0-2.0); EOSINOPHIL # 0.1 TH/MM3 (0-0.4); EOSINOPHIL % 1.3 % (0.0-4.0); HEMATOCRIT 27.2 % (39.0-51.0); HEMO FLAGS DIFF FINAL; LYMPH % 19.9 % (9.0-44.0); LYMPHOCYTE # 1.5 TH/MM3 (1.0-4.8); MEAN CELL VOLUME 77.1 FL (80.0-100.0); MEAN CORPUSCULAR HEMOGLOBIN 25.4 PG (27.0-34.0); MEAN CORPUSCULAR HGB CONC 32.9 % (32.0-36.0); MONO % 4.2 % (0.0-8.0); NEUT % 73.9 % (16.0-70.0); PLATELET COUNT 334 TH/MM3 (150-450); RED BLOOD COUNT 3.53 MIL/MM3 (4.50-5.90); WHITE BLOOD COUNT 7.4 TH/MM3 (4.0-11.0)
[2016-04-02 07:25] LABS: BICARBONATE 28.7 MEQ/L (21.0-32.0); MAGNESIUM 1.6 MG/DL (1.5-2.5); POTASSIUM 3.7 MEQ/L (3.5-5.1)
[2016-04-02] MEDS: ONDANSETRON HCL 4 MG/2 ML VIAL IVP PRN (08:41)
[2016-04-02] MEDS: SODIUM HYPOCHLORITE 0.125% 500 ML BTL TOPICAL SCH ×2 (09:00→10:07)
[2016-04-02] MEDS: BACLOFEN 10 MG TAB PO SCH ×3 (09:00→18:00)
[2016-04-02] MEDS: LACTOBACILLUS ACIDOPHILUS TAB PO SCH ×2 (10:03→23:31)
[2016-04-02] MEDS: CITALOPRAM HYDROBROMIDE 20 MG TAB PO SCH (10:03)
[2016-04-02] MEDS: TOLTERODINE TARTRATE 2 MG CAP LA PO SCH (10:04)
[2016-04-02] MEDS: LINEZOLID 600 MG TAB PO SCH ×2 (10:04→23:34)
[2016-04-02] MEDS: PREGABALIN 75 MG CAP PO SCH ×2 (10:04→23:31)
[2016-04-02] MEDS: MORPHINE SULFATE 30 MG CONTROLLED RELEASE TAB PO SCH ×4 (10:06→18:00)
[2016-04-02] MEDS: SODIUM CHLORIDE 0.9% FLUSH 5 ML FLUSH FLUSH SCH ×2 (10:07→21:00)
--- NOTE | 2016-04-02 11:21 | RADRPT ---
EXAM DATE/TIME: 04/02/2016 10:51 [facility] COMPARISON: CT BRAIN W/O CONTRAST, November 10, 2015, 8:28. INDICATIONS : Altered mental status. RADIATION DOSE: 50.36 CTDIvol (mGy) MEDICAL HISTORY : Hypertension. Deep venous thrombosis. Paraplegia. SURGICAL HISTORY : None. ENCOUNTER: Initial ACUITY: 1 day PAIN SCALE: 0/10 LOCATION: cranial TECHNIQUE: Multiple contiguous axial images were obtained of the head. Using automated exposure control and adj ustment of the mA and/or kV according to patient size, radiation dose was kept as low as reasonably a chievable to obtain optimal diagnostic quality images. FINDINGS: CEREBRUM: The ventricles are normal for age. No evidence of midline shift, mass lesion, hemorrhage or acute in farction. No extra-axial fluid collections are seen. POSTERIOR FOSSA: The cerebellum and brainstem are intact. The 4th ventricle is midline. The cerebellopontine angle i s unremarkable. EXTRACRANIAL: The visualized portion of the orbits is intact. SKULL: The calvaria is intact. No evidence of skull fracture. CONCLUSION: Normal examination. Jose Dukes MD on April 02, 2016 at 11:19 Board Certified Radiologist. This report was verified electronically.
--- NOTE | 2016-04-02 11:31 | HHI.GIFU ---
Subjective Remarks New neurological symptoms noted, dystonia-like going for CT today, still complaining of coffee ground vomiting but less than before. Objective Vitals I&O Vital Signs Date Time Temp Pulse Resp B/P Pulse Ox O2 Delivery O2 Flow Rate FiO2 04/02/16 08:50 97 21 04/02/16 08:10 97.6 80 18 155/90 98 04/02/16 06:00 98.3 68 20 145/90 98 04/02/16 04:22 97 21 04/02/16 00:30 97.9 61 19 148/98 99 04/01/16 20:45 97.3 58 18 157/99 98 04/01/16 17:59 97 21 04/01/16 16:00 96.8 75 18 138/80 97 04/01/16 12:00 95.7 72 18 158/89 100 04/01/16 11:35 93 21 I/O 04/01/16 04/01/16 04/01/16 04/02/16 04/02/16 04/02/16 07:00 15:00 23:00 07:00 15:00 23:00 Intake Total 480 ml 600 ml 1620 ml 1800 ml Output Total 900 ml 2100 ml 500 ml 1000 ml Balance -420 ml -1500 ml 1120 ml 800 ml Intake Oral 480 ml 600 ml 800 ml 900 ml IV Total 820 ml 900 ml Output Urine Total 900 ml 2100 ml 500 ml 1000 ml # Bowel Movements 0 0 0 0 Laboratory Laboratory Tests Test 04/02/16 06:30 White Blood Count 7.4 Red Blood Count 3.53 Hemoglobin 9.0 Hematocrit 27.2 Mean Corpuscular Volume 77.1 Mean Corpuscular Hemoglobin 25.4 Mean Corpuscular Hemoglobin 32.9 Concent Red Cell Distribution Width 18.0 Platelet Count 334 Mean Platelet Volume 7.3 Neutrophils (%) (Auto) 73.9 Lymphocytes (%) (Auto) 19.9 Monocytes (%) (Auto) 4.2 Eosinophils (%) (Auto) 1.3 Basophils (%) (Auto) 0.7 Neutrophils # (Auto) 5.5 Lymphocytes # (Auto) 1.5 Monocytes # (Auto) 0.3 Eosinophils # (Auto) 0.1 Basophils # (Auto) 0.0 CBC Comment DIFF FINAL Differential Comment Sodium Level 141 Potassium Level 3.7 Chloride Level 104 Carbon Dioxide Level 28.7 Anion Gap 8 Blood Urea Nitrogen 26 Creatinine 2.28 Estimat Glomerular Filtration 34 Rate Random Glucose 90 Calcium Level 9.2 Magnesium Level 1.6 Date/Time Procedure Status Source Growth 03/31/16 23:40 Aerobic Blood Culture - Preliminary Resulted Blood Peripheral NO GROWTH IN 2 DAYS 03/31/16 23:40 Anaerobic Blood Culture - Preliminary Resulted Blood Peripheral NO GROWTH IN 2 DAYS 03/30/16 18:00 Urine Culture - Final Complete Urine Catheterized Urine Klebsiella Pneumoniae Esbl Pos Physical Exam HEENT: Pupils round and reactive to light; normocephalic; atraumatic; no jaundice. Throat is clear. NECK: Neck is supple, no JVD, no lymphadenopathy. CHEST: Chest is clear to auscultation and percussion. CARDIAC: Regular rate and rhythm with no murmur gallop or rubs. ABDOMEN: Soft, nondistended, nontender; no hepatosplenomegaly; bowel sounds are present in all four quadrants. EXTREMITIES: No clubbing, cyanosis, or edema. SKIN: Normal; no rash; no jaundice. 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 Reports associated left upper quadrant abdominal pain. He denies any reliving or aggravating factors. He reports dizziness episodes the proceed emesis. He reports a history of pancreatitis. He denies any fevers or chills. Denies hematemesis, diarrhea, or bleeding. Denies the use of steroids or NSAIDs or alcohol intake. He had a Ct done on (02/04/16)---->1 cm nonspecific low attenuation lesion involving segment 5 of the liver, this was poorly characterized , US would likely be limited in evaluating this lesion, recommend tripole phase CT o the liver at some point. LFTs, lipase normal, . patient doing good today, he hasn't had any nausea or vomiting will need EGD, this could be done on Sunday - liver lesion- given acute kidney failure, not able to have CT, will order AFP - RASHAD/anemia of chronic disease- no obvious bleeding reported, this seems to be chronic and stable, no recent EGD/colonoscopy will order stools for Hemoccult, will need EGD/colonoscopy, patient would like this to be last resort. - UTI on abx - TONY- nephrology consulted - chronic back wound- ID on the case, abx - Neurogenic bladder, paraplegia, per attending Plan: - Continue workup for his new neurological symptom - EGD/Colonoscopy on Sunday if stable from neurology point of view. - Stools for Hemoccult - Monitor labs - Supportive care Salvatore Hendrix MD Apr 02, 2016 11:31
[2016-04-02] MEDS ORDERED: diphenhydrAMINE HCL 50 MG/ML VIAL IV PUSH ONE (12:30)
--- NOTE | 2016-04-02 14:45 | HHI.PR ---
Subjective Remarks Was noted in the morning with left facial twitching, and deviation of the toungue to the left also right arm weakness per nurse. However neuro exam normal. Patient says he was sleepy in the morning. He is a poor historian. Says he feels sleepy. Per nurse he is also refusing changing positions. Patient denies any efevr or chills. No over bleeding. He has multiple wounds on buttocks/ sacral area present on admission. Objective Vitals Vital Signs Date Time Temp Pulse Resp B/P Pulse Ox O2 Delivery O2 Flow Rate FiO2 04/02/16 12:27 96.9 65 18 168/106 99 04/02/16 11:37 18 04/02/16 11:36 18 04/02/16 08:50 97 21 04/02/16 08:10 97.6 80 18 155/90 98 04/02/16 06:00 98.3 68 20 145/90 98 04/02/16 04:22 97 21 04/02/16 00:30 97.9 61 19 148/98 99 04/01/16 20:45 97.3 58 18 157/99 98 04/01/16 17:59 97 21 04/01/16 16:00 96.8 75 18 138/80 97 I/O 04/01/16 04/01/16 04/01/16 04/02/16 04/02/16 04/02/16 07:00 15:00 23:00 07:00 15:00 23:00 Intake Total 480 ml 600 ml 1620 ml 1800 ml Output Total 900 ml 2100 ml 500 ml 1000 ml Balance -420 ml -1500 ml 1120 ml 800 ml Intake Oral 480 ml 600 ml 800 ml 900 ml IV Total 820 ml 900 ml Output Urine Total 900 ml 2100 ml 500 ml 1000 ml # Bowel Movements 0 0 0 0 Result Diagram: 04/02/16 0630 04/02/16 0630 Imaging Last Impressions Head CT 04/02/16 0000 Signed Impressions: Service Date/Time: Saturday, April 02, 2016 10:51 - CONCLUSION: Normal examination. Jose Dukes MD Renal Ultrasound 03/31/16 0000 Signed Impressions: Service Date/Time: Thursday, March 31, 2016 11:35 - CONCLUSION: Kidneys are normal other than questionable minimal increase echotexture the cortex. Cortical medullary junction is well-maintained with no evidence hydronephrosis. Sam Montiel MD Objective Remarks GENERAL: Well-developed well-nourished. In no acute distress. SKIN: Warm and dry. Wound VAC in place over the thoracic spine. He has multiple wounds on buttocks/ sacral area present on admission. HEENT: Normocephalic. Pupils equal and round. Mucous membranes pink and moist. CARDIOVASCULAR: Regular rate and rhythm. No murmur appreciated. RESPIRATORY: No accessory muscle use. Clear to auscultation. Breath sounds equal bilaterally. GASTROINTESTINAL: Abdomen soft, LUE TTP, nondistended. Bowel sounds x4. No CVA tenderness. MUSCULOSKELETAL: No obvious deformities. No clubbing or cyanosis. No edema. NEUROLOGICAL: Awake and alert. Lower extremity paralysis. Strength in the upper extremities. Normal speech. PSYCHIATRIC: Appropriate mood and affect; insight and judgment normal. A/P Problem List: (1) Chronic anemia ICD Code: D64.9 Status: Chronic (2) Neurogenic bladder ICD Code: N31.9 Status: Chronic (3) Paraplegia ICD Code: G82.20 Status: Chronic (4) UTI (urinary tract infection) ICD Code: N39.0 Status: Acute (5) Acute kidney injury ICD Code: N17.9 Status: Acute Assessment and Plan 30 year old male with past mental history of TBI/spinal injury/paraplegia, spinal hardware infection, RASHAD/AOCD, chronic pain was sent in for acute kidney injury Acute metabolic encephalopathy, he was noted confused by the family and nurse in the morning. Multifactorial. Patient is chronically ill with morbidities, TONY on CKD, sepsis. He was also noted with right arm weakness ?? and left facial twitching, tongue deviation to the left. CT head negative. Consult neurology Acute kidney injury: Likely secondary to GI losses. Creatinine 3.32, previously 1.77 on 03/25/16. Improving slowly. Renal ultrasound 03/05 showed mild increase in echogenicity. On IVF. Follow-up BMP. Consult nephrology, appreciate recommendations. Acute on chronic anemia. Iron deficiency anemia/anemia of chronic disease. Noted with drop in H/H 04/01/16. Transfuse 2PRBCs. Monitor H/H and transfuse as indicated. LUQ Abdominal pain and vomiting/nausea: Improving. Still with abd pain nausea but o vomiting. Unclear etiology. Lipase within normal limits. Consult gastroenterology. Supportive care with IVF and antiemetics. Abnormal UA: UA with evidence of possible infection. The patient self catheterizes. Previous urine culture with resistant Pseudomonas, sensitive only to Zosyn, will give renally adjusted IV Zosyn and consult patient's infectious disease specialist. Follow up wound culture. Discussed with GI service, plan for EGD if no improvement in 2 days He has multiple wounds on buttocks/ sacral area present on admission. 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 Discussed with wound care nurse, continue wound vac change -W- , suction at 125 mm/Hg History of TBI and spinal injury with resultant paraplegia and chronic pain: Chronic, stable. Continue Lyrica, topical lidocaine, Soma as needed, baclofen scheduled, morphine ER scheduled, morphine IR as needed. DVT prophylaxis: SCDs Discussed Condition With Patient, nurse, family at bedside. Problem Qualifiers (1) UTI (urinary tract infection): Qualified Code: N39.0 - Urinary tract infection without hematuria, site unspecified Subha Case MD Apr 02, 2016 14:45
[2016-04-02] MEDS: ERTAPENEM INJ 1,000 MG in SODIUM CHLORIDE 0.9% INJ 100 ML IV SCH ×2 (16:00→16:21)
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
[2016-04-02] MEDS: ENOXAPARIN SODIUM 30 MG/0.3 ML SYRINGE SQ SCH (23:31)
[2016-04-02] MEDS: DIAZEPAM 2 MG TAB PO SCH (23:32)
[2016-04-03] VITALS: BP 169/89; PULSE 68; RESP 17; TEMP 98.1; O2SAT 98
[2016-04-03 05:15] VITALS: BP 187/99; PULSE 64; RESP 16; TEMP 97.1; O2SAT 97
[2016-04-03 07:04] LABS: AUTOMATED NEUTROPHIL # 3.8 TH/MM3 (1.8-7.7); BASOPHIL # 0.1 TH/MM3 (0-0.2); BASOPHIL % 0.9 % (0.0-2.0); EOSINOPHIL # 0.1 TH/MM3 (0-0.4); EOSINOPHIL % 1.4 % (0.0-4.0); HEMATOCRIT 25.6 % (39.0-51.0); HEMO FLAGS DIFF FINAL; LYMPH % 26.4 % (9.0-44.0); LYMPHOCYTE # 1.5 TH/MM3 (1.0-4.8); MEAN CELL VOLUME 77.6 FL (80.0-100.0); MEAN CORPUSCULAR HEMOGLOBIN 25.3 PG (27.0-34.0); MEAN CORPUSCULAR HGB CONC 32.6 % (32.0-36.0); NEUT % 66.3 % (16.0-70.0); PLATELET COUNT 295 TH/MM3 (150-450); RED CELL DISTRIBUTION WIDTH 17.9 % (11.6-17.2); WHITE BLOOD COUNT 5.7 TH/MM3 (4.0-11.0)
[2016-04-03 07:37] LABS: BICARBONATE 27.1 MEQ/L (21.0-32.0); MAGNESIUM 1.5 MG/DL (1.5-2.5); POTASSIUM 3.5 MEQ/L (3.5-5.1)
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
[2016-04-03 08:49] VITALS: BP 128/78; PULSE 72; RESP 18; TEMP 96.9; O2SAT 96
[2016-04-03] MEDS: SODIUM CHLORIDE 0.9% FLUSH 5 ML FLUSH FLUSH SCH ×2 (09:00→22:09)
[2016-04-03] MEDS: SODIUM HYPOCHLORITE 0.125% 500 ML BTL TOPICAL SCH (09:00)
[2016-04-03] MEDS: PREGABALIN 75 MG CAP PO SCH ×2 (09:15→22:08)
[2016-04-03] MEDS: LINEZOLID 600 MG TAB PO SCH (09:15)
[2016-04-03] MEDS: BACLOFEN 10 MG TAB PO SCH ×3 (09:15→18:00)
[2016-04-03] MEDS: DIAZEPAM 2 MG TAB PO SCH (09:15)
[2016-04-03] MEDS: TOLTERODINE TARTRATE 2 MG CAP LA PO SCH (09:15)
[2016-04-03] MEDS: LACTOBACILLUS ACIDOPHILUS TAB PO SCH ×2 (09:15→22:07)
[2016-04-03] MEDS: MORPHINE SULFATE 30 MG CONTROLLED RELEASE TAB PO SCH ×2 (09:45→16:11)
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
--- NOTE | 2016-04-03 11:19 | HHI.GIFU ---
Subjective Remarks No new symptoms, same dystonic movement attributed to drug reaction. Objective Vitals I&O Vital Signs Date Time Temp Pulse Resp B/P Pulse Ox O2 Delivery O2 Flow Rate FiO2 04/03/16 08:49 96.9 72 18 128/78 96 04/03/16 05:15 97.1 64 16 187/99 97 04/03/16 00:00 98.1 68 17 169/89 98 04/02/16 21:30 97.1 62 16 178/99 97 04/02/16 15:56 96.8 69 18 153/93 97 04/02/16 12:27 96.9 65 18 168/106 99 04/02/16 11:37 18 04/02/16 11:36 18 I/O 04/02/16 04/02/16 04/02/16 04/03/16 04/03/16 04/03/16 07:00 15:00 23:00 07:00 15:00 23:00 Intake Total 1800 ml 500 ml 650 ml Output Total 1000 ml 1000 ml 900 ml 900 ml Balance 800 ml -1000 ml -400 ml -250 ml Intake Oral 900 ml 500 ml 650 ml IV Total 900 ml Output Urine Total 1000 ml 1000 ml 900 ml 900 ml # Bowel Movements 0 2 0 0 Laboratory Laboratory Tests Test 04/03/16 06:30 White Blood Count 5.7 Red Blood Count 3.30 Hemoglobin 8.4 Hematocrit 25.6 Mean Corpuscular Volume 77.6 Mean Corpuscular Hemoglobin 25.3 Mean Corpuscular Hemoglobin 32.6 Concent Red Cell Distribution Width 17.9 Platelet Count 295 Mean Platelet Volume 7.3 Neutrophils (%) (Auto) 66.3 Lymphocytes (%) (Auto) 26.4 Monocytes (%) (Auto) 5.0 Eosinophils (%) (Auto) 1.4 Basophils (%) (Auto) 0.9 Neutrophils # (Auto) 3.8 Lymphocytes # (Auto) 1.5 Monocytes # (Auto) 0.3 Eosinophils # (Auto) 0.1 Basophils # (Auto) 0.1 CBC Comment DIFF FINAL Differential Comment Sodium Level 143 Potassium Level 3.5 Chloride Level 106 Carbon Dioxide Level 27.1 Anion Gap 10 Blood Urea Nitrogen 23 Creatinine 1.87 Estimat Glomerular Filtration 43 Rate Random Glucose 71 Calcium Level 9.3 Magnesium Level 1.5 Date/Time Procedure Status Source Growth 03/31/16 23:40 Aerobic Blood Culture - Preliminary Resulted Blood Peripheral NO GROWTH IN 3 DAYS 03/31/16 23:40 Anaerobic Blood Culture - Preliminary Resulted Blood Peripheral NO GROWTH IN 3 DAYS 03/30/16 18:00 Urine Culture - Final Complete Urine Catheterized Urine Klebsiella Pneumoniae Esbl Pos Physical Exam HEENT: Pupils round and reactive to light; normocephalic; atraumatic; no jaundice. Throat is clear. NECK: Neck is supple, no JVD, no lymphadenopathy. CHEST: Chest is clear to auscultation and percussion. CARDIAC: Regular rate and rhythm with no murmur gallop or rubs. ABDOMEN: Soft, nondistended, nontender; no hepatosplenomegaly; bowel sounds are present in all four quadrants. EXTREMITIES: No clubbing, cyanosis, or edema. SKIN: Normal; no rash; no jaundice. Assessment and Plan Plan - 10 days history of vomiting associated with LUQ pain- Has been on penitent[facility] abx of vanco, this was changed to Zyvox, he is managed by ID for wound infection on the thoracic spine The patient states that for the past 10 days he's been vomiting at least daily. Reports associated left upper quadrant abdominal pain. He denies any reliving or aggravating factors. He reports dizziness episodes the proceed emesis. He reports a history of pancreatitis. He denies any fevers or chills. Denies hematemesis, diarrhea, or bleeding. Denies the use of steroids or NSAIDs or alcohol intake. He had a Ct done on (02/04/16)---->1 cm nonspecific low attenuation lesion involving segment 5 of the liver, this was poorly characterized , US would likely be limited in evaluating this lesion, recommend tripole phase CT o the liver at some point. LFTs, lipase normal, . patient doing good today, he hasn't had any nausea or vomiting will need EGD, this could be done on Sunday - liver lesion- given acute kidney failure, not able to have CT, will order AFP - RASHAD/anemia of chronic disease- no obvious bleeding reported, this seems to be chronic and stable, no recent EGD/colonoscopy will order stools for Hemoccult, will need EGD/colonoscopy, patient would like this to be last resort. - UTI on abx - TONY- nephrology consulted - chronic back wound- ID on the case, abx - Neurogenic bladder, paraplegia, per attending Plan: - EGD/Colonoscopy in AM. - Clear liquid diet and NPO after midnight - Golytely for bowel prep. - Monitor labs - Supportive care Salvatore Hendrix MD Apr 03, 2016 11:18
[2016-04-03] MEDS ORDERED: BISACODYL EC 5 MG TABEC PO ONE (12:00)
[2016-04-03] MEDS ORDERED: PEG (High)/E-LYTE SOLN 4000 ML BTL PO ONE (12:00)
[2016-04-03] MEDS: ONDANSETRON HCL 4 MG/2 ML VIAL IVP PRN ×2 (12:26→18:21)
[2016-04-03 12:30] VITALS: BP 167/107; PULSE 83; RESP 18; TEMP 96.8; O2SAT 95
[2016-04-03] MEDS: ERTAPENEM INJ 1,000 MG in SODIUM CHLORIDE 0.9% INJ 100 ML IV SCH (16:00)
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
[2016-04-03] MEDS ORDERED: BACLOFEN 10 MG TAB PO ONE (19:45)
[2016-04-03 20:00] VITALS: BP 153/90; PULSE 70; RESP 18; TEMP 97.9; O2SAT 100
--- NOTE | 2016-04-03 21:06 | HHI.PR ---
Review/Management Diagnosis DIAGNOSTIC IMPRESSION: 1. Orofacial dyskinesia and choreiform movement of the bilateral upper extremities.Resolved 2. Encephalopathy.Resolved A likely etiology is possible mild form of serotonin syndrome. The patient was on Compazine, citalopram (SSRI) and Linezolid (MAO inhibitor)/ Discontinued. Plan Stable from neurology standpoint D/C Diazepam DVT prophylaxis Diagnosis/Plan: Subjective Subjective Comments Patient with no new complaints No reported facial or UE dyskinetic movements Active Medications Current Medications Medications (Trade) Dose Ordered Sig/Iam Route Start Time Stop Time Status Last Admin (NS Flush) 2 ml UNSCH PRN FLUSH 03/30/16 18:15 (NS Flush) 2 ml BID FLUSH 03/30/16 21:00 04/03/16 09:00 (Tylenol) 650 mg Q4H PRN PO 03/30/16 18:15 (Zofran Inj) 4 mg Q6H PRN IVP 03/30/16 18:15 04/03/16 18:21 (Dulcolax Supp) 10 mg DAILY PRN AK 03/30/16 18:15 (Milk Of Magnesia Liq) 30 ml Q12H PRN PO 03/30/16 18:15 (Senokot) 17.2 mg Q12H PRN PO 03/30/16 18:15 (Lovenox Inj) 30 mg Q24H SQ 03/30/16 20:00 04/02/16 23:31 (Lioresal) 10 mg TID PO 03/31/16 09:00 04/03/16 16:12 (Soma) 350 mg Q8HR PRN PO 03/30/16 18:30 (Lactinex) 1 tab BID PO 03/30/16 21:00 04/03/16 09:15 (Xylocaine 2% Jelly) 1 applic DAILY PRN TOPICAL 03/30/16 18:30 (Oramorph Sr) 30 mg TID PO 03/31/16 09:00 04/03/16 16:11 (Msir) 15 mg Q4H PRN PO 03/30/16 18:30 03/31/16 15:04 (Dakin'S 0.125% Soln) 0.125 ml DAILY TOPICAL 03/31/16 09:00 04/03/16 09:00 (Detrol La) 2 mg DAILY PO 03/31/16 09:00 04/03/16 09:15 (Lyrica) 75 mg BID PO 03/31/16 21:00 04/03/16 09:15 Alteplase, Recombinant 2 mg 2 mg Q2H PRN INTRACATH 03/31/16 15:45 03/31/16 18:21 (INVanz INJ/NS Inj) 100 ml @ 200 mls/hr Q24H IV 04/02/16 16:00 04/03/16 16:00 (Valium) 1 mg Q12HR PO 04/02/16 21:00 04/03/16 09:15 Polyethylene Glycol/ Electrolytes 4000 ml 4,000 ml ONCE ONCE PO 04/04/16 17:00 04/04/16 17:01 (Teflaro Inj/NS Inj) 100 ml @ 100 mls/hr Q12H IV 04/03/16 20:00 Allergies Allergies Coded Allergies Vancomycin (Verified Adverse Reaction, Intermediate, 03/30/16) *MDRO Multi-Drug Resistant Organism (Verified Adverse Reaction, Unknown, XDR Pseudomonas, MRSA, 03/31/16) Exam I&O / VS 04/02/16 04/02/16 04/03/16 15:00 23:00 07:00 Intake Total 500 ml 650 ml Output Total 1000 ml 900 ml 900 ml Balance -1000 ml -400 ml -250 ml Intake Oral 500 ml 650 ml Output Urine Total 1000 ml 900 ml 900 ml # Bowel Movements 2 0 0 Vital Signs Date Time Temp Pulse Resp B/P Pulse Ox O2 Delivery O2 Flow Rate FiO2 04/03/16 12:30 96.8 83 18 167/107 95 04/03/16 08:49 96.9 72 18 128/78 96 04/03/16 05:15 97.1 64 16 187/99 97 04/03/16 00:00 98.1 68 17 169/89 98 04/02/16 21:30 97.1 62 16 178/99 97 Respiratory: Lungs CTA, Non-labored respirations, BS equal Cardiology: Normal rate, Regular Rhythm Musculoskeletal: ROM Exam Comments GENERAL: Well-developed, well-nourished, awake, alert, mother at the bedside, notable facial dystonic movements and upper and lower choreiform dystonic movements with choreiform of the tongue muscles. HEAD, EYES, EARS, NOSE, THROAT: Normocephalic and atraumatic with orofacial dyskinesias and tongue movements as well. CARDIOVASCULAR: Regular rate and rhythm. No murmurs appreciated. RESPIRATORY: Clear to auscultation. No wheezes. MUSCULOSKELETAL: Bilateral paraplegia status post spinal injury upper extremities with choreiform / dystonic movement. NEUROLOGICAL EXAMINATION: Awake, alert and oriented to time, person and place. Intact speech. Cranial nerves are intact II through XII grossly intact; Upper extremities 5/5. tone is normal. Bilateral paraplegia. PSYCHIATRIC: Appropriate mood and affect. Insight and judgment are normal. Objective Radiology Results Last [address] 04/02/16 0000 Signed Impressions: Service Date/Time: Saturday, April 02, 2016 10:51 - CONCLUSION: Normal examination. Jose Dukes MD Micro and Labs Laboratory Tests Test 04/03/16 06:30 White Blood Count 5.7 Red Blood Count 3.30 Hemoglobin 8.4 Hematocrit 25.6 Mean Corpuscular Volume 77.6 Mean Corpuscular Hemoglobin 25.3 Mean Corpuscular Hemoglobin 32.6 Concent Red Cell Distribution Width 17.9 Platelet Count 295 Mean Platelet Volume 7.3 Neutrophils (%) (Auto) 66.3 Lymphocytes (%) (Auto) 26.4 Monocytes (%) (Auto) 5.0 Eosinophils (%) (Auto) 1.4 Basophils (%) (Auto) 0.9 Neutrophils # (Auto) 3.8 Lymphocytes # (Auto) 1.5 Monocytes # (Auto) 0.3 Eosinophils # (Auto) 0.1 Basophils # (Auto) 0.1 CBC Comment DIFF FINAL Differential Comment Sodium Level 143 Potassium Level 3.5 Chloride Level 106 Carbon Dioxide Level 27.1 Anion Gap 10 Blood Urea Nitrogen 23 Creatinine 1.87 Estimat Glomerular Filtration 43 Rate Random Glucose 71 Calcium Level 9.3 Magnesium Level 1.5 Total Creatine Kinase 134 Date/Time Procedure Status Source Growth 03/31/16 23:40 Aerobic Blood Culture - Preliminary Resulted Blood Peripheral NO GROWTH IN 3 DAYS 03/31/16 23:40 Anaerobic Blood Culture - Preliminary Resulted Blood Peripheral NO GROWTH IN 3 DAYS 03/30/16 18:00 Urine Culture - Final Complete Urine Catheterized Urine Klebsiella Pneumoniae Esbl Pos Laurel Kaminski MD Apr 03, 2016 21:06
[2016-04-03] MEDS: MORPHINE SULFATE 15 MG TAB PO PRN (22:08)
[2016-04-03] MEDS: ENOXAPARIN SODIUM 30 MG/0.3 ML SYRINGE SQ SCH (22:09)
[2016-04-03] MEDS: CEFTAROLINE INJ 400 MG in SODIUM CHLORIDE 0.9% INJ 100 ML IV SCH (22:10)
[2016-04-04] VITALS: BP 156/96; PULSE 104; RESP 16; TEMP 96.2; O2SAT 96
[2016-04-04 04:00] VITALS: BP 115/62; PULSE 78; RESP 18; TEMP 98.5; O2SAT 98
[2016-04-04] MEDS: MORPHINE SULFATE 15 MG TAB PO PRN ×3 (05:46→23:10)
[2016-04-04 06:13] LABS: BASOPHIL # 0.1 TH/MM3 (0-0.2); BASOPHIL % 0.8 % (0.0-2.0); EOSINOPHIL # 0.1 TH/MM3 (0-0.4); EOSINOPHIL % 1.2 % (0.0-4.0); HEMATOCRIT 24.6 % (39.0-51.0); HEMO FLAGS DIFF FINAL; LYMPH % 30.8 % (9.0-44.0); MEAN CELL VOLUME 76.9 FL (80.0-100.0); MEAN CORPUSCULAR HEMOGLOBIN 25.3 PG (27.0-34.0); MEAN CORPUSCULAR HGB CONC 32.9 % (32.0-36.0); MONO % 5.3 % (0.0-8.0); NEUT % 61.9 % (16.0-70.0); PLATELET COUNT 272 TH/MM3 (150-450); RED CELL DISTRIBUTION WIDTH 17.7 % (11.6-17.2); WHITE BLOOD COUNT 6.5 TH/MM3 (4.0-11.0)
[2016-04-04 06:23] LABS: BICARBONATE 30.6 MEQ/L (21.0-32.0)
[2016-04-04 06:27] LABS: POTASSIUM 2.9 MEQ/L (3.5-5.1)
[2016-04-04] MEDS ORDERED: POTASSIUM CHLORIDE 20 MEQ CONTROLLED RELEASE TAB PO ONE (06:45)
[2016-04-04 08:00] VITALS: BP 114/58; PULSE 92; RESP 15; TEMP 97.6; O2SAT 95
[2016-04-04] MEDS: PREGABALIN 75 MG CAP PO SCH ×2 (08:48→22:09)
[2016-04-04] MEDS: LACTOBACILLUS ACIDOPHILUS TAB PO SCH ×2 (08:48→22:08)
[2016-04-04] MEDS: BACLOFEN 10 MG TAB PO SCH ×3 (08:48→18:00)
[2016-04-04] MEDS: SODIUM CHLORIDE 0.9% FLUSH 5 ML FLUSH FLUSH SCH ×2 (08:55→22:10)
[2016-04-04] MEDS ORDERED: POTASSIUM CHLOR 20 MEQ PREMIX 100 ML IV ONE (09:00)
[2016-04-04] MEDS: SODIUM HYPOCHLORITE 0.125% 500 ML BTL TOPICAL SCH (09:00)
[2016-04-04] MEDS: MORPHINE SULFATE 30 MG CONTROLLED RELEASE TAB PO SCH ×2 (09:27→13:04)
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
--- NOTE | 2016-04-04 10:43 | HHI.GIFU ---
Subjective Remarks Resting in bed. Nausea and vomiting has improved today. No abdominal pain at this time. States he has not had anything to eat yet because he just woke up. No BM today. States he is on bowel program- dulcolax every other day. (Latonia Betancourt) Objective Vitals I&O Vital Signs Date Time Temp Pulse Resp B/P Pulse Ox O2 Delivery O2 Flow Rate FiO2 04/04/16 08:00 97.6 92 15 114/58 95 04/04/16 06:47 18 04/04/16 04:00 98.5 78 18 115/62 98 04/04/16 00:00 96.2 104 16 156/96 96 04/03/16 23:08 18 04/03/16 21:33 19 04/03/16 20:00 97.9 70 18 153/90 100 04/03/16 12:30 96.8 83 18 167/107 95 I/O 04/03/16 04/03/16 04/03/16 04/04/16 04/04/16 04/04/16 06:59 14:59 22:59 06:59 14:59 22:59 Intake Total 650 ml 1200 ml 480 ml Output Total 900 ml 1800 ml 500 ml Balance -250 ml -600 ml -20 ml Intake Oral 650 ml 1200 ml 480 ml Output Urine Total 900 ml 1800 ml 500 ml # Bowel Movements 0 0 Laboratory Laboratory Tests Test 04/04/16 05:53 White Blood Count 6.5 Red Blood Count 3.20 Hemoglobin 8.1 Hematocrit 24.6 Mean Corpuscular Volume 76.9 Mean Corpuscular Hemoglobin 25.3 Mean Corpuscular Hemoglobin 32.9 Concent Red Cell Distribution Width 17.7 Platelet Count 272 Mean Platelet Volume 7.4 Neutrophils (%) (Auto) 61.9 Lymphocytes (%) (Auto) 30.8 Monocytes (%) (Auto) 5.3 Eosinophils (%) (Auto) 1.2 Basophils (%) (Auto) 0.8 Neutrophils # (Auto) 4.0 Lymphocytes # (Auto) 2.0 Monocytes # (Auto) 0.3 Eosinophils # (Auto) 0.1 Basophils # (Auto) 0.1 CBC Comment DIFF FINAL Differential Comment Sodium Level 139 Potassium Level 2.9 Chloride Level 103 Carbon Dioxide Level 30.6 Anion Gap 5 Blood Urea Nitrogen 21 Creatinine 1.76 Estimat Glomerular Filtration 46 Rate Random Glucose 104 Calcium Level 9.3 Date/Time Procedure Status Source Growth 03/31/16 23:40 Aerobic Blood Culture - Preliminary Resulted Blood Peripheral NO GROWTH IN 3 DAYS 03/31/16 23:40 Anaerobic Blood Culture - Preliminary Resulted Blood Peripheral NO GROWTH IN 3 DAYS 03/30/16 18:00 Urine Culture - Final Complete Urine Catheterized Urine Klebsiella Pneumoniae Esbl Pos Imaging Last Impressions Head CT 04/02/16 0000 Signed Impressions: Service Date/Time: Saturday, April 02, 2016 10:51 - CONCLUSION: Normal examination. Jose Dukes MD Renal Ultrasound 03/31/16 0000 Signed Impressions: Service Date/Time: Thursday, March 31, 2016 11:35 - CONCLUSION: Kidneys are normal other than questionable minimal increase echotexture the cortex. Cortical medullary junction is well-maintained with no evidence hydronephrosis. Sam Montiel MD Physical Exam HEENT: Normocephalic; atraumatic; no jaundice. T CHEST: CTA CARDIAC: RRR ABDOMEN: Soft, nondistended, nontender; no hepatosplenomegaly; bowel sounds are present in all four quadrants. EXTREMITIES: No clubbing, cyanosis, or edema. Neuro. Alert and oriented. (Latonia Betancourt [facility]) Assessment and Plan Plan ASSESSMENT: - N/V with LUQ pain. No imaging of the abdomen on this admission. Had CT abdomen and pelvis (02/14/16) which revealed constipation, distention throughout the colon suggesting a colonic ileus, tiny left effusion with associated atelectasis, tiny amount of ascites, 1 cm nonspecific low attenuation lesion involving segment 5 of the liver. It is poorly characterized on this exam. US would likely be limited in evaluating this lesion given its location. Further evaluation at some point could be performed utilizing triple phase CT scan of the liver. - Liver lesion- given acute kidney failure, not able to have CT, AFP 0.8. Consider MRI vs. CT once TONY resolved. - RASHAD/anemia of chronic disease. Denies any obvious bleeding. 8.04/25.6. - UTI on abx. - TONY- nephrology following. Creat 2.85, GFR 26. - Chronic back wound- ID on the case, abx - Neurogenic bladder, paraplegia, per attending - Constipation. Will need to be started on his bowel program after procedure- Dulcolax suppository every other night. Plan: - EGD/Colonoscopy in AM. - Obtain consents - Clear liquids - NPO after MN - Golytely for bowel prep. - Hold lovenox after MN - Monitor labs - Will need to be started on bowel program after procedures - Supportive care - Pt seen and examined by Dr. Lockhart and myself and this note is written on his behalf. (Latonia Betancourt) Physician Comments Patient was seen and examined, agree with above note. we will check labs, continue supportive care. colon EGD in am (Claire Lockhart MD) Latonia Betancourt Apr 04, 2016 10:42 Claire Lockhart MD Apr 04, 2016 21:47
[2016-04-04 12:43] VITALS: BP 110/61; PULSE 65; RESP 16; TEMP 97.6; O2SAT 97
[2016-04-04] MEDS: TOLTERODINE TARTRATE 2 MG CAP LA PO SCH (13:01)
[2016-04-04] MEDS: CEFTAROLINE INJ 400 MG in SODIUM CHLORIDE 0.9% INJ 100 ML IV SCH ×2 (13:05→22:09)
[2016-04-04] MEDS: ONDANSETRON HCL 4 MG/2 ML VIAL IVP PRN (13:06)
[2016-04-04 16:17] VITALS: BP 123/70; PULSE 77; RESP 17; TEMP 97.2; O2SAT 100
[2016-04-04] MEDS ORDERED: PEG (High)/E-LYTE SOLN 4000 ML BTL PO ONE (17:00)
[2016-04-04] MEDS: ERTAPENEM INJ 1,000 MG in SODIUM CHLORIDE 0.9% INJ 100 ML IV SCH (18:46)
[2016-04-04 20:00] VITALS: BP 163/82; PULSE 82; RESP 16; TEMP 98.1; O2SAT 98
[2016-04-04] MEDS: ENOXAPARIN SODIUM 30 MG/0.3 ML SYRINGE SQ SCH (22:08)
[2016-04-05] VITALS (7 sets, daily range): BP systolic 111–168; BP diastolic 75–100; PULSE 55–80; RESP 16–20; TEMP 95.9–97.9; O2SAT 98–100
[2016-04-05 08:16] LABS: AUTOMATED NEUTROPHIL # 2.9 TH/MM3 (1.8-7.7); BASOPHIL % 0.8 % (0.0-2.0); EOSINOPHIL # 0.1 TH/MM3 (0-0.4); EOSINOPHIL % 1.2 % (0.0-4.0); LYMPHOCYTE # 1.4 TH/MM3 (1.0-4.8); MEAN CELL VOLUME 77.6 FL (80.0-100.0); MEAN CORPUSCULAR HEMOGLOBIN 25.3 PG (27.0-34.0); MEAN CORPUSCULAR HGB CONC 32.7 % (32.0-36.0); MONO % 5.2 % (0.0-8.0); NEUT % 62.8 % (16.0-70.0); PLATELET COUNT 194 TH/MM3 (150-450); RED BLOOD COUNT 2.55 MIL/MM3 (4.50-5.90); RED CELL DISTRIBUTION WIDTH 17.8 % (11.6-17.2); WHITE BLOOD COUNT 4.6 TH/MM3 (4.0-11.0)
[2016-04-05 08:21] LABS: HEMO FLAGS AUTO DIFF
[2016-04-05 08:28] LABS: HEMATOCRIT 19.8 % (39.0-51.0)
[2016-04-05] MEDS: SODIUM HYPOCHLORITE 0.125% 500 ML BTL TOPICAL SCH (09:00)
[2016-04-05] MEDS: TOLTERODINE TARTRATE 2 MG CAP LA PO SCH (09:00)
[2016-04-05] MEDS: LACTOBACILLUS ACIDOPHILUS TAB PO SCH ×2 (09:00→22:04)
[2016-04-05] MEDS: SODIUM CHLORIDE 0.9% FLUSH 5 ML FLUSH FLUSH SCH ×2 (09:00→22:04)
[2016-04-05] MEDS: BACLOFEN 10 MG TAB PO SCH ×3 (09:00→18:00)
[2016-04-05 09:09] LABS: SCAN/DIFF AUTO DIFF CONFIRMED
--- NOTE | 2016-04-05 10:55 | HHI.PR ---
Subjective Remarks Patient denied any nausea or vomiting he just came from EGD on colonoscopy, no abdominal pain afebrile Objective Vitals Vital Signs Date Time Temp Pulse Resp B/P Pulse Ox O2 Delivery O2 Flow Rate FiO2 04/05/16 10:45 97.0 55 18 157/95 98 04/05/16 04:00 97.9 76 17 166/100 99 04/05/16 00:00 97.9 73 17 155/86 100 04/04/16 23:10 19 04/04/16 23:10 19 04/04/16 20:00 98.1 82 16 163/82 98 04/04/16 16:17 97.2 77 17 123/70 100 04/04/16 12:43 97.6 65 16 110/61 97 I/O 04/04/16 04/04/16 04/04/16 04/05/16 04/05/16 04/05/16 07:00 15:00 23:00 07:00 15:00 23:00 Intake Total 480 ml 960 ml Output Total 500 ml 3000 ml 850 ml Balance -20 ml -2040 ml -850 ml Intake Oral 480 ml 960 ml Output Urine Total 500 ml 3000 ml 850 ml # Bowel Movements 0 0 Result Diagram: 04/05/16 0757 04/04/16 0553 A/P Problem List: (1) Chronic anemia ICD Code: D64.9 Status: Chronic (2) Neurogenic bladder ICD Code: N31.9 Status: Chronic (3) Paraplegia ICD Code: G82.20 Status: Chronic (4) UTI (urinary tract infection) ICD Code: N39.0 Status: Acute (5) Acute kidney injury ICD Code: N17.9 Status: Acute Assessment and Plan 04/05/16: H&H came this morning showing hemoglobin of 6 on the repeat was back up to 10, will repeat another set for confirmation, patient going for EGD and colonoscopy today 30 year old male with past mental history of TBI/spinal injury/paraplegia, spinal hardware infection, RASHAD/AOCD, chronic pain was sent in for acute kidney injury Acute metabolic encephalopathy, Patient with encephalopathy and orofacial dyskinesis and choreiform movement of BL UE poss 2/2 side effects of meds, mild form of serotonin syndrom ( compazine , citalopram -SSRIs and Linezolid - MAO inhibitor. DC citalopram, he is not taking compazine, Received diphenhydramine 25 IV once, start diazepam 1 mg bid Neurology following. Dr Kaminski appreciate recommendations. Acute kidney injury: Consult nephrology, appreciate recommendations. Emphasized importance of compliance with self cath he is refusing feliciano. Patient is noncompliant with self cath and refusing feliciano he is at risk of TONY Acute on chronic anemia. Iron deficiency anemia/anemia of chronic disease. Noted with drop in H/H 04/01/16. Transfuse 2PRBCs. Monitor H/H and transfuse as indicated. LUQ Abdominal pain and vomiting/nausea: Improving. Still with abd pain nausea but o vomiting. Unclear etiology. Lipase within normal limits. Consult gastroenterology. Supportive care with IVF and antiemetics. Status post EGD/Colonoscopy 04/05 , unremarkable except for stool was not contacted Abnormal UA: UA with evidence of possible infection. The patient self catheterizes. Previous urine culture with resistant Pseudomonas, sensitive only to Zosyn, will give renally adjusted IV Zosyn and consult patient's infectious disease specialist. Follow up wound culture. Patient also has urinary retention and likely he is likely not self cath often and ends up with TONY. Place feliciano. Multiple wounds on buttocks/ sacral area present on admission. Patient is refusing positioning, discussed at length regarding positioning. 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 wound care following, continue wound vac change M-W-F , suction at 125 mm/Hg History of TBI and spinal injury with resultant paraplegia and chronic pain: Chronic, stable. Continue Lyrica, topical lidocaine, Soma as needed, baclofen scheduled, morphine ER scheduled, morphine IR as needed. DVT prophylaxis: SCDs Problem Qualifiers (1) UTI (urinary tract infection): Qualified Code: N39.0 - Urinary tract infection without hematuria, site unspecified Rebekah Garcia MD Apr 05, 2016 10:55
[2016-04-05] MEDS ORDERED: FUROSEMIDE 20 MG/2 ML VIAL IV ONE (11:00)
[2016-04-05] MEDS ORDERED: MIDAZOLAM HCL 2 MG/2 ML VIAL IV ONE (11:22)
[2016-04-05] MEDS ORDERED: PROPOFOL 200 MG/20 ML AMP IV ONE (11:47)
[2016-04-05] MEDS: CEFTAROLINE INJ 400 MG in SODIUM CHLORIDE 0.9% INJ 100 ML IV SCH ×2 (12:00→22:04)
[2016-04-05] MEDS: PREGABALIN 75 MG CAP PO SCH ×2 (12:00→22:04)
[2016-04-05] MEDS: MORPHINE SULFATE 30 MG CONTROLLED RELEASE TAB PO SCH ×2 (12:00→18:00)
[2016-04-05 12:09] LABS: HEMATOCRIT 33.4 % (39.0-51.0); REVIEW FLAG FINAL
--- NOTE | 2016-04-05 12:18 | HHI.GIFU ---
Subjective Remarks doing ok, feels week, no sign of active bleed. Objective Vitals I&O Vital Signs Date Time Temp Pulse Resp B/P Pulse Ox O2 Delivery O2 Flow Rate FiO2 04/05/16 10:45 97.0 55 18 157/95 98 04/05/16 04:00 97.9 76 17 166/100 99 04/05/16 00:00 97.9 73 17 155/86 100 04/04/16 23:10 19 04/04/16 23:10 19 04/04/16 20:00 98.1 82 16 163/82 98 04/04/16 16:17 97.2 77 17 123/70 100 04/04/16 12:43 97.6 65 16 110/61 97 I/O 04/04/16 04/04/16 04/04/16 04/05/16 04/05/16 04/05/16 07:00 15:00 23:00 07:00 15:00 23:00 Intake Total 480 ml 960 ml Output Total 500 ml 3000 ml 850 ml Balance -20 ml -2040 ml -850 ml Intake Oral 480 ml 960 ml Output Urine Total 500 ml 3000 ml 850 ml # Bowel Movements 0 0 Laboratory Laboratory Tests Test 04/05/16 07:57 White Blood Count 4.6 Red Blood Count 2.55 Hemoglobin 6.5 Hematocrit 19.8 Mean Corpuscular Volume 77.6 Mean Corpuscular Hemoglobin 25.3 Mean Corpuscular Hemoglobin 32.7 Concent Red Cell Distribution Width 17.8 Platelet Count 194 Mean Platelet Volume 7.2 Neutrophils (%) (Auto) 62.8 Lymphocytes (%) (Auto) 30.0 Monocytes (%) (Auto) 5.2 Eosinophils (%) (Auto) 1.2 Basophils (%) (Auto) 0.8 Neutrophils # (Auto) 2.9 Lymphocytes # (Auto) 1.4 Monocytes # (Auto) 0.2 Eosinophils # (Auto) 0.1 Basophils # (Auto) 0.0 CBC Comment AUTO DIFF Differential Comment AUTO DIFF CONFIRMED Date/Time Procedure Status Source Growth 03/31/16 23:40 Aerobic Blood Culture - Final Complete Blood Peripheral NO GROWTH IN 5 DAYS 03/31/16 23:40 Anaerobic Blood Culture - Final Complete Blood Peripheral NO GROWTH IN 5 DAYS Physical Exam HEENT: Normocephalic; atraumatic; no jaundice. T CHEST: CTA CARDIAC: RRR ABDOMEN: Soft, nondistended, nontender; no hepatosplenomegaly; bowel sounds are present in all four quadrants. EXTREMITIES: No clubbing, cyanosis, or edema. Neuro. Alert and oriented. Assessment and Plan Plan ASSESSMENT: - N/V with LUQ pain. No imaging of the abdomen on this admission. Had CT abdomen and pelvis (02/14/16) which revealed constipation, distention throughout the colon suggesting a colonic ileus, tiny left effusion with associated atelectasis, tiny amount of ascites, 1 cm nonspecific low attenuation lesion involving segment 5 of the liver. It is poorly characterized on this exam. US would likely be limited in evaluating this lesion given its location. Further evaluation at some point could be performed utilizing triple phase CT scan of the liver. - Liver lesion- given acute kidney failure, not able to have CT, AFP 0.8. Consider MRI vs. CT once TONY resolved. - RASHAD/anemia of chronic disease. Denies any obvious bleeding. 8.04/25.6. - UTI on abx. - TONY- nephrology following. Creat 2.85, GFR 26. - Chronic back wound- ID on the case, abx - Neurogenic bladder, paraplegia, per attending - Constipation. Will need to be started on his bowel program after procedure- Dulcolax suppository every other night. 1-16 dropped HGB, no sign of active bleed, had EGD which had retained food with possible Bezoar, colonoscopy has significant amounts of stool but no lesions seen to explain his anemia. most likely anemia related to chronic dx. Plan: - CASEY - restart lovenox - Monitor labs - Will need to be started on bowel program to avoid impaction - Supportive care - consider PRBC since he is more anemic. - pineapple juice to try to resolve Bezoar Claire Lockhart MD Apr 05, 2016 12:18
[2016-04-05] MEDS ORDERED: KETAMINE HCL 500 MG/5 ML VIAL ONE (13:46)
[2016-04-05] MEDS ORDERED: POTASSIUM CHLOR 20 MEQ PREMIX 100 ML IV ONE (14:00)
[2016-04-05] MEDS: ERTAPENEM INJ 1,000 MG in SODIUM CHLORIDE 0.9% INJ 100 ML IV SCH (16:00)
--- NOTE | 2016-04-05 17:29 | HHI.PR ---
Objective Vitals Vital Signs Date Time Temp Pulse Resp B/P Pulse Ox O2 Delivery O2 Flow Rate FiO2 04/05/16 12:29 60 16 153/100 100 04/05/16 12:24 58 16 166/103 100 04/05/16 12:19 98.4 57 16 157/104 100 04/05/16 10:45 97.0 55 18 157/95 98 04/05/16 04:00 97.9 76 17 166/100 99 04/05/16 00:00 97.9 73 17 155/86 100 04/04/16 23:10 19 04/04/16 23:10 19 04/04/16 20:00 98.1 82 16 163/82 98 I/O 04/04/16 04/04/16 04/04/16 04/05/16 04/05/16 04/05/16 07:00 15:00 23:00 07:00 15:00 23:00 Intake Total 480 ml 960 ml 100 ml Output Total 500 ml 3000 ml 850 ml Balance -20 ml -2040 ml -850 ml 100 ml Intake Oral 480 ml 960 ml IV Total 100 ml Output Urine Total 500 ml 3000 ml 850 ml # Bowel Movements 0 0 Result Diagram: 04/05/16 1141 04/04/16 0553 A/P Problem List: (1) Chronic anemia ICD Code: D64.9 Status: Chronic (2) Neurogenic bladder ICD Code: N31.9 Status: Chronic (3) Paraplegia ICD Code: G82.20 Status: Chronic (4) UTI (urinary tract infection) ICD Code: N39.0 Status: Acute (5) Acute kidney injury ICD Code: N17.9 Status: Acute Problem Qualifiers (1) UTI (urinary tract infection): Qualified Code: N39.0 - Urinary tract infection without hematuria, site unspecified Rebekah Garcia MD Apr 05, 2016 17:29
[2016-04-05 19:51] LABS: REVIEW FLAG FINAL
[2016-04-05] MEDS: MORPHINE SULFATE 15 MG TAB PO PRN (22:22)
[2016-04-06] VITALS: BP 162/88; PULSE 89; RESP 20; TEMP 99.7; O2SAT 100
[2016-04-06 04:00] VITALS: BP 152/89; PULSE 72; RESP 20; TEMP 97.9; O2SAT 98
[2016-04-06 06:15] LABS: AUTOMATED NEUTROPHIL # 3.7 TH/MM3 (1.8-7.7); BASOPHIL % 0.8 % (0.0-2.0); EOSINOPHIL # 0.1 TH/MM3 (0-0.4); EOSINOPHIL % 1.9 % (0.0-4.0); HEMATOCRIT 22.7 % (39.0-51.0); HEMO FLAGS DIFF FINAL; LYMPH % 31.7 % (9.0-44.0); LYMPHOCYTE # 1.9 TH/MM3 (1.0-4.8); MEAN CELL VOLUME 77.4 FL (80.0-100.0); MEAN CORPUSCULAR HEMOGLOBIN 25.9 PG (27.0-34.0); MEAN CORPUSCULAR HGB CONC 33.5 % (32.0-36.0); MONO % 4.5 % (0.0-8.0); NEUT % 61.1 % (16.0-70.0); PLATELET COUNT 223 TH/MM3 (150-450); RED BLOOD COUNT 2.93 MIL/MM3 (4.50-5.90); RED CELL DISTRIBUTION WIDTH 17.8 % (11.6-17.2); WHITE BLOOD COUNT 6.1 TH/MM3 (4.0-11.0)
[2016-04-06 06:26] LABS: BICARBONATE 28.3 MEQ/L (21.0-32.0); POTASSIUM 3.3 MEQ/L (3.5-5.1)
[2016-04-06 08:00] VITALS: BP 143/81; PULSE 87; RESP 18; TEMP 98.4; O2SAT 100
[2016-04-06] MEDS: BACLOFEN 10 MG TAB PO SCH ×3 (09:00→17:43)
[2016-04-06] MEDS: SODIUM CHLORIDE 0.9% FLUSH 5 ML FLUSH FLUSH SCH ×2 (09:00→21:33)
[2016-04-06] MEDS: CEFTAROLINE INJ 400 MG in SODIUM CHLORIDE 0.9% INJ 100 ML IV SCH ×3 (11:31→22:59)
[2016-04-06] MEDS: PREGABALIN 75 MG CAP PO SCH ×2 (11:31→21:33)
[2016-04-06] MEDS: LACTOBACILLUS ACIDOPHILUS TAB PO SCH ×2 (11:32→21:33)
[2016-04-06] MEDS: MORPHINE SULFATE 30 MG CONTROLLED RELEASE TAB PO SCH ×3 (11:32→17:43)
[2016-04-06] MEDS: TOLTERODINE TARTRATE 2 MG CAP LA PO SCH (11:32)
[2016-04-06 12:00] VITALS: BP 143/88; PULSE 58; RESP 18; TEMP 98.3; O2SAT 100
[2016-04-06] MEDS ORDERED: POTASSIUM CHLORIDE 20 MEQ CONTROLLED RELEASE TAB PO ONE (13:45)
[2016-04-06 13:52] LABS: MYELOPEROXIDASE LESS THAN 1.0 AI (<1.0); PROTEINASE-3 LESS THAN 1.0 AI (<1.0)
[2016-04-06 14:00] VITALS: PULSE 89; RESP 20; TEMP 98.9; O2SAT 100
--- NOTE | 2016-04-06 15:51 | HHI.PR ---
Subjective Remarks Hemoglobin back down again to 7.2, however patient denied any lightheadedness or dizziness or chest and or short of breath will repeat H&H today, will transfuse if less than 7 Recent colonoscopy was negative Objective Vitals Vital Signs Date Time Temp Pulse Resp B/P Pulse Ox O2 Delivery O2 Flow Rate FiO2 04/06/16 12:00 98.3 58 18 143/88 100 04/06/16 08:00 98.4 87 18 143/81 100 04/06/16 04:00 97.9 72 20 152/89 98 04/06/16 00:00 99.7 89 20 162/88 100 04/05/16 20:00 97.7 63 20 160/96 100 I/O 04/05/16 04/05/16 04/05/16 04/06/16 04/06/16 04/06/16 06:59 14:59 22:59 06:59 14:59 22:59 Intake Total 100 ml 480 ml Output Total 850 ml 2000 ml 700 ml Balance -850 ml 100 ml -1520 ml -700 ml Intake Oral 480 ml IV Total 100 ml Output Urine Total 850 ml 2000 ml 700 ml # Bowel Movements 0 4 0 Result Diagram: 04/06/16 0555 04/06/16 0555 Objective Remarks GENERAL: Well-developed well-nourished. In no acute distress. SKIN: Warm and dry. Wound VAC in place over the thoracic spine. He has multiple wounds on buttocks/ sacral area present on admission. HEENT: Normocephalic. Pupils equal and round. Mucous membranes pink and moist. CARDIOVASCULAR: Regular rate and rhythm. No murmur appreciated. RESPIRATORY: No accessory muscle use. Clear to auscultation. Breath sounds equal bilaterally. GASTROINTESTINAL: Abdomen soft, nontender, nondistended. Bowel sounds x4. No CVA tenderness. MUSCULOSKELETAL: No obvious deformities. No clubbing or cyanosis. No edema. NEUROLOGICAL: Awake and alert. Lower extremity paralysis. Strength in the upper extremities. Normal speech. A/P Problem List: (1) Chronic anemia ICD Code: D64.9 Status: Chronic (2) Neurogenic bladder ICD Code: N31.9 Status: Chronic (3) Paraplegia ICD Code: G82.20 Status: Chronic (4) UTI (urinary tract infection) ICD Code: N39.0 Status: Acute (5) Acute kidney injury ICD Code: N17.9 Status: Acute Assessment and Plan 04/05/16: H&H came this morning showing hemoglobin of 6 on the repeat was back up to 10, will repeat another set for confirmation, patient going for EGD and colonoscopy today 04/06/16: Hemoglobin again down to 7.2, will repeat at 6 PM, will transfuse if less than 7 A/P: 30 year old male with past mental history of TBI/spinal injury/paraplegia, spinal hardware infection, RASHAD/AOCD, chronic pain was sent in for acute kidney injury Acute metabolic encephalopathy, Patient with encephalopathy and orofacial dyskinesis and choreiform movement of BL UE poss 2/2 side effects of meds, mild form of serotonin syndrom ( compazine , citalopram -SSRIs and Linezolid - MAO inhibitor. DC citalopram, he is not taking compazine, Received diphenhydramine 25 IV once, start diazepam 1 mg bid Neurology following. Dr Kaminski appreciate recommendations. Acute kidney injury: improving Consult nephrology, appreciate recommendations. Emphasized importance of compliance with self cath he is refusing feliciano. Patient is noncompliant with self cath and refusing feliciano he is at risk of TONY Acute on chronic anemia. Iron deficiency anemia/anemia of chronic disease. Noted with drop in H/H 04/01/16. Transfuse 2PRBCs. Monitor H/H and transfuse as indicated. LUQ Abdominal pain and vomiting/nausea: Improving. Unclear etiology. Lipase within normal limits. Consult gastroenterology. Supportive care with IVF and antiemetics. Status post EGD/Colonoscopy 04/05 , unremarkable except for stool was not contacted paraplegia and neurogenic bladder 2/2 traumatic SCI recurrent UTI, growing ESBL+ Kleb pneumo - cont Ertapenem x 2 weeks -dc zysvox Multiple wounds on buttocks/ sacral area present on admission. Patient is refusing positioning, discussed at length regarding positioning. 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 wound care following, continue wound vac change M-W- , suction at 125 mm/Hg History of TBI and spinal injury with resultant paraplegia and chronic pain/T spine infected wound with hardware in place s/p I+D, VAC - side effect to vanco: ARF - side effect to dapto: elevated CKs - now can not tolerate zyvox : Chronic, stable. Continue Lyrica, topical lidocaine, Soma as needed, baclofen scheduled, morphine ER scheduled, morphine IR as needed. DVT prophylaxis: SCDs Problem Qualifiers (1) UTI (urinary tract infection): Qualified Code: N39.0 - Urinary tract infection without hematuria, site unspecified Rebekah Garcia MD Apr 06, 2016 15:51
[2016-04-06] MEDS: ERTAPENEM INJ 1,000 MG in SODIUM CHLORIDE 0.9% INJ 100 ML IV SCH (17:45)
[2016-04-06 20:00] VITALS: BP 172/98; PULSE 84; RESP 18; TEMP 99.6; O2SAT 100
[2016-04-06 22:24] LABS: HEMATOCRIT 25.6 % (39.0-51.0); REVIEW FLAG FINAL
[2016-04-06] MEDS: MORPHINE SULFATE 15 MG TAB PO PRN (22:59)
[2016-04-07] VITALS: BP 148/87; PULSE 78; RESP 18; TEMP 98.7; O2SAT 100
[2016-04-07 04:00] VITALS: BP 142/79; PULSE 62; RESP 18; TEMP 97.7; O2SAT 98
[2016-04-07] MEDS: MORPHINE SULFATE 15 MG TAB PO PRN ×2 (05:43→21:26)
[2016-04-07 06:19] LABS: AUTOMATED NEUTROPHIL # 3.6 TH/MM3 (1.8-7.7); BASOPHIL # 0.1 TH/MM3 (0-0.2); BASOPHIL % 0.9 % (0.0-2.0); EOSINOPHIL # 0.1 TH/MM3 (0-0.4); EOSINOPHIL % 2.3 % (0.0-4.0); HEMATOCRIT 24.4 % (39.0-51.0); HEMO FLAGS DIFF FINAL; LYMPH % 31.6 % (9.0-44.0); LYMPHOCYTE # 1.9 TH/MM3 (1.0-4.8); MEAN CELL VOLUME 78.1 FL (80.0-100.0); MEAN CORPUSCULAR HEMOGLOBIN 25.8 PG (27.0-34.0); MONO % 5.2 % (0.0-8.0); PLATELET COUNT 205 TH/MM3 (150-450); RED BLOOD COUNT 3.13 MIL/MM3 (4.50-5.90); RED CELL DISTRIBUTION WIDTH 18.1 % (11.6-17.2)
[2016-04-07 06:35] LABS: BICARBONATE 30.4 MEQ/L (21.0-32.0); POTASSIUM 3.4 MEQ/L (3.5-5.1)
[2016-04-07 08:40] VITALS: BP 128/76; PULSE 65; RESP 20; TEMP 97.6; O2SAT 97
[2016-04-07] MEDS: PREGABALIN 75 MG CAP PO SCH ×2 (09:00→21:16)
[2016-04-07] MEDS: MORPHINE SULFATE 30 MG CONTROLLED RELEASE TAB PO SCH ×3 (09:00→17:30)
[2016-04-07] MEDS: BACLOFEN 10 MG TAB PO SCH ×3 (09:00→17:31)
[2016-04-07] MEDS: TOLTERODINE TARTRATE 2 MG CAP LA PO SCH (09:00)
[2016-04-07] MEDS: LACTOBACILLUS ACIDOPHILUS TAB PO SCH ×2 (09:00→21:16)
[2016-04-07 13:25] VITALS: BP 148/84; PULSE 68; RESP 20; TEMP 97.6; O2SAT 100
--- NOTE | 2016-04-07 13:34 | HHI.PR ---
Subjective Remarks stable no acute issues afebrile Laying in bed comfortably Continue IV antibiotics per ID Objective Vitals Vital Signs Date Time Temp Pulse Resp B/P Pulse Ox O2 Delivery O2 Flow Rate FiO2 04/07/16 13:25 97.6 68 20 148/84 100 04/07/16 08:40 97.6 65 20 128/76 97 04/07/16 04:00 97.7 62 18 142/79 98 04/07/16 00:00 98.7 78 18 148/87 100 04/06/16 20:00 99.6 84 18 172/98 100 04/06/16 14:00 98.9 89 20 100 I/O 04/06/16 04/06/16 04/06/16 04/07/16 04/07/16 04/07/16 07:00 15:00 23:00 07:00 15:00 23:00 Intake Total 800 ml 560 ml Output Total 700 ml 1200 ml 2100 ml Balance -700 ml -400 ml -1540 ml Intake Oral 800 ml 560 ml Output Urine Total 700 ml 1200 ml 2100 ml # Voids 0 # Bowel Movements 0 0 Result Diagram: 04/07/16 0545 04/07/16 0545 Objective Remarks GENERAL: Well-developed well-nourished. In no acute distress. SKIN: Warm and dry. Wound VAC in place over the thoracic spine. He has multiple wounds on buttocks/ sacral area present on admission. HEENT: Normocephalic. Pupils equal and round. Mucous membranes pink and moist. CARDIOVASCULAR: Regular rate and rhythm. No murmur appreciated. RESPIRATORY: No accessory muscle use. Clear to auscultation. Breath sounds equal bilaterally. GASTROINTESTINAL: Abdomen soft, nontender, nondistended. Bowel sounds x4. No CVA tenderness. MUSCULOSKELETAL: No obvious deformities. No clubbing or cyanosis. No edema. NEUROLOGICAL: Awake and alert. Lower extremity paralysis. Strength in the upper extremities. Normal speech. A/P Problem List: (1) Chronic anemia ICD Code: D64.9 Status: Chronic (2) Neurogenic bladder ICD Code: N31.9 Status: Chronic (3) Paraplegia ICD Code: G82.20 Status: Chronic (4) UTI (urinary tract infection) ICD Code: N39.0 Status: Acute (5) Acute kidney injury ICD Code: N17.9 Status: Acute Assessment and Plan 04/05/16: H&H came this morning showing hemoglobin of 6 on the repeat was back up to 10, will repeat another set for confirmation, patient going for EGD and colonoscopy today 04/06/16: Hemoglobin again down to 7.2, will repeat at 6 PM, will transfuse if less than 7 04/07/16: Hemoglobin stable, continue IV antibiotic, A/P: 30 year old male with past mental history of TBI/spinal injury/paraplegia, spinal hardware infection, RASHAD/AOCD, chronic pain was sent in for acute kidney injury Acute metabolic encephalopathy, Patient with encephalopathy and orofacial dyskinesis and choreiform movement of BL UE poss 2/2 side effects of meds, mild form of serotonin syndrom ( compazine , citalopram -SSRIs and Linezolid - MAO inhibitor. DC citalopram, he is not taking compazine, Received diphenhydramine 25 IV once, start diazepam 1 mg bid Neurology following. Dr Kaminski appreciate recommendations. Acute kidney injury: improving Consult nephrology, appreciate recommendations. Emphasized importance of compliance with self cath he is refusing feliciano. Patient is noncompliant with self cath and refusing feliciano he is at risk of TONY Acute on chronic anemia. Iron deficiency anemia/anemia of chronic disease. Noted with drop in H/H 04/01/16. Transfuse 2PRBCs. Monitor H/H and transfuse as indicated. LUQ Abdominal pain and vomiting/nausea: Improving. Unclear etiology. Lipase within normal limits. Consult gastroenterology. Supportive care with IVF and antiemetics. Status post EGD/Colonoscopy 04/05 , unremarkable except for stool was not contacted paraplegia and neurogenic bladder 2/2 traumatic SCI recurrent UTI, growing ESBL+ Kleb pneumo - cont Ertapenem x 2 weeks -dc zysvox Multiple wounds on buttocks/ sacral area present on admission. Patient is refusing positioning, discussed at length regarding positioning. 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 wound care following, continue wound vac change M-W- , suction at 125 mm/Hg History of TBI and spinal injury with resultant paraplegia and chronic pain/T spine infected wound with hardware in place s/p I+D, VAC - side effect to vanco: ARF - side effect to dapto: elevated CKs - now can not tolerate zyvox : Chronic, stable. Continue Lyrica, topical lidocaine, Soma as needed, baclofen scheduled, morphine ER scheduled, morphine IR as needed. DVT prophylaxis: SCDs Discharge Planning when cleared by ID Problem Qualifiers (1) UTI (urinary tract infection): Qualified Code: N39.0 - Urinary tract infection without hematuria, site unspecified Rebekah Garcia MD Apr 07, 2016 13:34
[2016-04-07 17:21] VITALS: BP 137/80; PULSE 67; RESP 20; TEMP 97.5; O2SAT 96
[2016-04-07 20:00] VITALS: BP 149/82; PULSE 77; RESP 18; TEMP 97.7; O2SAT 97
--- NOTE | 2016-04-07 20:43 | HHI.IDPN ---
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 Vital Signs Date Time Temp Pulse Resp B/P Pulse Ox O2 Delivery O2 Flow Rate FiO2 04/07/16 17:21 97.5 67 20 137/80 96 04/07/16 13:25 97.6 68 20 148/84 100 04/07/16 08:40 97.6 65 20 128/76 97 04/07/16 04:00 97.7 62 18 142/79 98 04/07/16 00:00 98.7 78 18 148/87 100 04/06/16 04/06/16 04/07/16 15:00 23:00 07:00 Intake Total 800 ml 560 ml Output Total 1200 ml 2100 ml Balance -400 ml -1540 ml Intake Oral 800 ml 560 ml Output Urine Total 1200 ml 2100 ml # Voids 0 # Bowel Movements 0 . Laboratory Tests Test 04/06/16 04/06/16 04/07/16 05:55 21:15 05:45 White Blood Count 6.1 TH/MM3 6.0 TH/MM3 Red Blood Count 2.93 MIL/MM3 3.13 MIL/MM3 Hemoglobin 7.6 GM/DL 8.5 GM/DL 8.1 GM/DL Hematocrit 22.7 % 25.6 % 24.4 % Mean Corpuscular Volume 77.4 FL 78.1 FL Mean Corpuscular Hemoglobin 25.9 PG 25.8 PG Mean Corpuscular Hemoglobin 33.5 % 33.0 % Concent Red Cell Distribution Width 17.8 % 18.1 % Platelet Count 223 TH/MM3 205 TH/MM3 Mean Platelet Volume 7.4 FL 7.7 FL Neutrophils (%) (Auto) 61.1 % 60.0 % Lymphocytes (%) (Auto) 31.7 % 31.6 % Monocytes (%) (Auto) 4.5 % 5.2 % Eosinophils (%) (Auto) 1.9 % 2.3 % Basophils (%) (Auto) 0.8 % 0.9 % Neutrophils # (Auto) 3.7 TH/MM3 3.6 TH/MM3 Lymphocytes # (Auto) 1.9 TH/MM3 1.9 TH/MM3 Monocytes # (Auto) 0.3 TH/MM3 0.3 TH/MM3 Eosinophils # (Auto) 0.1 TH/MM3 0.1 TH/MM3 Basophils # (Auto) 0.0 TH/MM3 0.1 TH/MM3 CBC Comment DIFF FINAL DIFF FINAL Differential Comment Laboratory Tests Test 04/06/16 04/07/16 05:55 05:45 Sodium Level 142 MEQ/L 144 MEQ/L Potassium Level 3.3 MEQ/L 3.4 MEQ/L Chloride Level 104 MEQ/L 107 MEQ/L Carbon Dioxide Level 28.3 MEQ/L 30.4 MEQ/L Anion Gap 10 MEQ/L 7 MEQ/L Blood Urea Nitrogen 13 MG/DL 13 MG/DL Creatinine 1.39 MG/DL 1.47 MG/DL Estimat Glomerular Filtration 60 ML/MIN 56 ML/MIN Rate Random Glucose 92 MG/DL 87 MG/DL Calcium Level 9.1 MG/DL 9.4 MG/DL Imaging Last Impressions Head CT 04/02/16 0000 Signed Impressions: Service Date/Time: Saturday, April 02, 2016 10:51 - CONCLUSION: Normal examination. Jose Dukes MD Renal Ultrasound 03/31/16 0000 Signed Impressions: Service Date/Time: Thursday, March 31, 2016 11:35 - CONCLUSION: Kidneys are normal other than questionable minimal increase echotexture the cortex. Cortical medullary junction is well-maintained with no evidence hydronephrosis. Sam Montiel MD Physical Exam CONSTITUTIONAL/GENERAL: This is an adequately nourished patient, in no apparent distress. TUBES/LINES/DRAINS: PICC in place RUE site looks OK : feliciano in place with clear yellow urine BACK: VAC in place with serosang dc NEUROLOGICAL: Awake and alert. Paraplegia. Speech normal Moves b/l upper extremities. No abnormal movements noted PSYCHIATRIC: No obvious anxiety/depression. no apparent hallucinations or other psychotic thought process. 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 2/2 dehydration - improving T spine infected wound with hardware in place s/p I+D, VAC - side effect to vanco: ARF - side effect to dapto: elevated CKs - now can not tolerate zyvox - cont Ertapenem x 2 weeks - cont teflaro, increase dose - cont teflaro thru 04/10 dw case mngr Mamie Arzola MD Apr 07, 2016 20:43
[2016-04-07] MEDS: SODIUM CHLORIDE 0.9% FLUSH 5 ML FLUSH FLUSH SCH (21:00)
[2016-04-07 22:21] LABS: HEMATOCRIT 24.7 % (39.0-51.0); REVIEW FLAG FINAL
[2016-04-08] VITALS: BP 140/82; PULSE 69; RESP 18; TEMP 97.4; O2SAT 100
[2016-04-08 04:00] VITALS: BP 142/75; PULSE 54; RESP 18; TEMP 98; O2SAT 98
[2016-04-08] MEDS: MORPHINE SULFATE 15 MG TAB PO PRN ×4 (06:48→21:23)
[2016-04-08 07:10] VITALS: BP 130/74; PULSE 60; RESP 18; TEMP 97.9; O2SAT 97
[2016-04-08] MEDS: PREGABALIN 75 MG CAP PO SCH ×2 (08:58→21:23)
[2016-04-08] MEDS: TOLTERODINE TARTRATE 2 MG CAP LA PO SCH (08:58)
[2016-04-08] MEDS: BACLOFEN 10 MG TAB PO SCH ×3 (08:58→18:30)
[2016-04-08] MEDS: LACTOBACILLUS ACIDOPHILUS TAB PO SCH ×2 (08:58→21:23)
[2016-04-08] MEDS: MORPHINE SULFATE 30 MG CONTROLLED RELEASE TAB PO SCH ×3 (08:58→18:31)
[2016-04-08] MEDS: SODIUM CHLORIDE 0.9% FLUSH 5 ML FLUSH FLUSH SCH ×2 (08:59→21:24)
[2016-04-08] MEDS: CEFTAROLINE INJ 600 MG in SODIUM CHLORIDE 0.9% INJ 100 ML IV SCH ×2 (08:59→21:23)
[2016-04-08] MEDS: SODIUM HYPOCHLORITE 0.125% 500 ML BTL TOPICAL SCH (09:01)
--- NOTE | 2016-04-08 10:51 | HHI.PR ---
Subjective Remarks Laying in bed no acute issue No abdominal pain no diarrhea no fever or chills Objective Vitals Vital Signs Date Time Temp Pulse Resp B/P Pulse Ox O2 Delivery O2 Flow Rate FiO2 04/08/16 07:10 97.9 60 18 130/74 97 04/08/16 04:00 98.0 54 18 142/75 98 04/08/16 00:00 97.4 69 18 140/82 100 04/07/16 20:00 97.7 77 18 149/82 97 04/07/16 17:21 97.5 67 20 137/80 96 04/07/16 13:25 97.6 68 20 148/84 100 I/O 04/07/16 04/07/16 04/07/16 04/08/16 04/08/16 04/08/16 07:00 15:00 23:00 07:00 15:00 23:00 Intake Total 560 ml 660 ml 850 ml Output Total 2100 ml 1250 ml 2200 ml Balance -1540 ml -590 ml -1350 ml Intake Oral 560 ml 660 ml 850 ml Output Urine Total 2100 ml 1250 ml 2200 ml Result Diagram: 04/07/16202904/07/16 0545 Objective Remarks GENERAL: Well-developed well-nourished. In no acute distress. SKIN: Warm and dry. Wound VAC in place over the thoracic spine. He has multiple wounds on buttocks/ sacral area present on admission. HEENT: Normocephalic. Pupils equal and round. Mucous membranes pink and moist. CARDIOVASCULAR: Regular rate and rhythm. No murmur appreciated. RESPIRATORY: No accessory muscle use. Clear to auscultation. Breath sounds equal bilaterally. GASTROINTESTINAL: Abdomen soft, nontender, nondistended. Bowel sounds x4. No CVA tenderness. MUSCULOSKELETAL: No obvious deformities. No clubbing or cyanosis. No edema. NEUROLOGICAL: Awake and alert. Lower extremity paralysis. Strength in the upper extremities. Normal speech. A/P Problem List: (1) Chronic anemia ICD Code: D64.9 Status: Chronic (2) Neurogenic bladder ICD Code: N31.9 Status: Chronic (3) Paraplegia ICD Code: G82.20 Status: Chronic (4) UTI (urinary tract infection) ICD Code: N39.0 Status: Acute (5) Acute kidney injury ICD Code: N17.9 Status: Acute Assessment and Plan 04/05/16: H&H came this morning showing hemoglobin of 6 on the repeat was back up to 10, will repeat another set for confirmation, patient going for EGD and colonoscopy today 04/06/16: Hemoglobin again down to 7.2, will repeat at 6 PM, will transfuse if less than 7 04/07/16: Hemoglobin stable, continue IV antibiotic, 04/08/16: Continue-antibiotic per ID recommendation ertapenem for 14 days, Teflaro until 04/10/16 A/P: 30 year old male with past mental history of TBI/spinal injury/paraplegia, spinal hardware infection, RASAHD/AOCD, chronic pain was sent in for acute kidney injury Acute metabolic encephalopathy, Patient with encephalopathy and orofacial dyskinesis and choreiform movement of BL UE poss 2/2 side effects of meds, mild form of serotonin syndrom ( compazine , citalopram -SSRIs and Linezolid - MAO inhibitor. DC citalopram, he is not taking compazine, Received diphenhydramine 25 IV once, start diazepam 1 mg bid Neurology following. Dr Kaminski appreciate recommendations. Acute kidney injury: improving Consult nephrology, appreciate recommendations. Emphasized importance of compliance with self cath he is refusing feliciano. Patient is noncompliant with self cath and refusing feliciano he is at risk of TONY Acute on chronic anemia. Iron deficiency anemia/anemia of chronic disease. Noted with drop in H/H 04/01/16. Transfuse 2PRBCs. Monitor H/H and transfuse as indicated. LUQ Abdominal pain and vomiting/nausea: Improving. Unclear etiology. Lipase within normal limits. Consult gastroenterology. Supportive care with IVF and antiemetics. Status post EGD/Colonoscopy 04/05 , unremarkable except for stool was not contacted paraplegia and neurogenic bladder 2/2 traumatic SCI recurrent UTI, growing ESBL+ Kleb pneumo - cont Ertapenem x 2 weeks -dc zysvox Multiple wounds on buttocks/ sacral area present on admission. Patient is refusing positioning, discussed at length regarding positioning. 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 wound care following, continue wound vac change M-W-F , History of TBI and spinal injury with resultant paraplegia and chronic pain/T spine infected wound with hardware in place s/p I+D, VAC - side effect to vanco: ARF - side effect to dapto: elevated CKs - now can not tolerate zyvox -On ertapenem and Teflaro : Chronic, stable. Continue Lyrica, topical lidocaine, Soma as needed, baclofen scheduled, morphine ER scheduled, morphine IR as needed. DVT prophylaxis: SCDs Discharge Planning when cleared by ID Problem Qualifiers (1) UTI (urinary tract infection): Qualified Code: N39.0 - Urinary tract infection without hematuria, site unspecified Rebekah Garcia MD Apr 08, 2016 10:51
[2016-04-08 11:50] VITALS: BP 131/77; PULSE 51; RESP 18; TEMP 96; O2SAT 100
[2016-04-08 15:30] VITALS: BP 152/84; PULSE 74; RESP 18; TEMP 97.4; O2SAT 99
[2016-04-08] MEDS: ERTAPENEM INJ 1,000 MG in SODIUM CHLORIDE 0.9% INJ 100 ML IV SCH (16:29)
[2016-04-08 20:00] VITALS: BP 140/97; PULSE 61; RESP 18; TEMP 97; O2SAT 100
[2016-04-08] MEDS: CARISOPRODOL 350 MG TAB PO PRN (21:23)
[2016-04-09] VITALS: BP 129/73; PULSE 63; RESP 16; TEMP 97.7; O2SAT 96
[2016-04-09 04:00] VITALS: BP 115/67; PULSE 51; RESP 18; TEMP 98.1; O2SAT 97
[2016-04-09 07:15] VITALS: BP 113/63; PULSE 55; RESP 18; TEMP 97.5; O2SAT 96
[2016-04-09] MEDS: CEFTAROLINE INJ 600 MG in SODIUM CHLORIDE 0.9% INJ 100 ML IV SCH ×2 (08:33→21:20)
[2016-04-09] MEDS: BACLOFEN 10 MG TAB PO SCH ×3 (08:33→18:41)
[2016-04-09] MEDS: SODIUM CHLORIDE 0.9% FLUSH 5 ML FLUSH FLUSH SCH ×2 (08:34→21:19)
[2016-04-09] MEDS: TOLTERODINE TARTRATE 2 MG CAP LA PO SCH (08:34)
[2016-04-09] MEDS: SODIUM HYPOCHLORITE 0.125% 500 ML BTL TOPICAL SCH (08:34)
[2016-04-09] MEDS: LACTOBACILLUS ACIDOPHILUS TAB PO SCH ×2 (08:34→21:19)
[2016-04-09] MEDS: PREGABALIN 75 MG CAP PO SCH ×2 (08:34→21:19)
[2016-04-09] MEDS: MORPHINE SULFATE 30 MG CONTROLLED RELEASE TAB PO SCH ×3 (08:35→18:41)
[2016-04-09 11:30] VITALS: BP 112/64; PULSE 84; RESP 18; TEMP 97.6; O2SAT 97
--- NOTE | 2016-04-09 11:41 | HHI.PR ---
Subjective Remarks No acute issue, afebrile, laying in bed Objective Vitals Vital Signs Date Time Temp Pulse Resp B/P Pulse Ox O2 Delivery O2 Flow Rate FiO2 04/09/16 07:15 97.5 55 18 113/63 96 04/09/16 04:00 98.1 51 18 115/67 97 04/09/16 00:00 97.7 63 16 129/73 96 04/08/16 20:00 97.0 61 18 140/97 100 04/08/16 17:30 18 04/08/16 15:30 97.4 74 18 152/84 99 04/08/16 13:47 18 04/08/16 11:50 96.0 51 18 131/77 100 I/O 04/08/16 04/08/16 04/08/16 04/09/16 04/09/16 04/09/16 07:00 15:00 23:00 07:00 15:00 23:00 Intake Total 850 ml 618 ml 69 ml Output Total 2200 ml 650 ml 1250 ml 1500 ml Balance -1350 ml -650 ml -632 ml -1431 ml Intake Oral 850 ml 480 ml IV Total 138 ml 69 ml Output Urine Total 2200 ml 650 ml 1250 ml 1500 ml # Bowel Movements 0 Result Diagram: 04/07/16202904/07/16 0545 Objective Remarks GENERAL: Well-developed well-nourished. In no acute distress. SKIN: Warm and dry. Wound VAC in place over the thoracic spine. He has multiple wounds on buttocks/ sacral area present on admission. HEENT: Normocephalic. Pupils equal and round. Mucous membranes pink and moist. CARDIOVASCULAR: Regular rate and rhythm. No murmur appreciated. RESPIRATORY: No accessory muscle use. Clear to auscultation. Breath sounds equal bilaterally. GASTROINTESTINAL: Abdomen soft, nontender, nondistended. Bowel sounds x4. No CVA tenderness. MUSCULOSKELETAL: No obvious deformities. No clubbing or cyanosis. No edema. NEUROLOGICAL: Awake and alert. Lower extremity paralysis. Strength in the upper extremities. Normal speech. A/P Problem List: (1) Chronic anemia ICD Code: D64.9 Status: Chronic (2) Neurogenic bladder ICD Code: N31.9 Status: Chronic (3) Paraplegia ICD Code: G82.20 Status: Chronic (4) UTI (urinary tract infection) ICD Code: N39.0 Status: Acute (5) Acute kidney injury ICD Code: N17.9 Status: Acute Assessment and Plan 04/05/16: H&H came this morning showing hemoglobin of 6 on the repeat was back up to 10, will repeat another set for confirmation, patient going for EGD and colonoscopy today 04/06/16: Hemoglobin again down to 7.2, will repeat at 6 PM, will transfuse if less than 7 04/07/16: Hemoglobin stable, continue IV antibiotic, 04/08/16: Continue-antibiotic per ID recommendation ertapenem for 14 days, Teflaro until 04/10/16 04/09/16: Continue current care, check EMP in a.m. A/P: 30 year old male with past mental history of TBI/spinal injury/paraplegia, spinal hardware infection, RASHAD/AOCD, chronic pain was sent in for acute kidney injury Acute metabolic encephalopathy, Patient with encephalopathy and orofacial dyskinesis and choreiform movement of BL UE poss 2/2 side effects of meds, mild form of serotonin syndrom ( compazine , citalopram -SSRIs and Linezolid - MAO inhibitor. DC citalopram, he is not taking compazine, Received diphenhydramine 25 IV once, start diazepam 1 mg bid Neurology following. Dr Kaminski appreciate recommendations. Acute kidney injury: improving Consult nephrology, appreciate recommendations. Emphasized importance of compliance with self cath he is refusing feliciano. Patient is noncompliant with self cath and refusing feliciano he is at risk of TONY Acute on chronic anemia. Iron deficiency anemia/anemia of chronic disease. Noted with drop in H/H 04/01/16. Transfuse 2PRBCs. Monitor H/H and transfuse as indicated. LUQ Abdominal pain and vomiting/nausea: Improving. Unclear etiology. Lipase within normal limits. Consult gastroenterology. Supportive care with IVF and antiemetics. Status post EGD/Colonoscopy 04/05 , unremarkable except for stool was not contacted paraplegia and neurogenic bladder 2/2 traumatic SCI recurrent UTI, growing ESBL+ Kleb pneumo - cont Ertapenem x 2 weeks -dc zysvox Multiple wounds on buttocks/ sacral area present on admission. Patient is refusing positioning, discussed at length regarding positioning. 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 wound care following, continue wound vac change M-W-F , History of TBI and spinal injury with resultant paraplegia and chronic pain/T spine infected wound with hardware in place s/p I+D, VAC - side effect to vanco: ARF - side effect to dapto: elevated CKs - now can not tolerate zyvox -On ertapenem and Teflaro : Chronic, stable. Continue Lyrica, topical lidocaine, Soma as needed, baclofen scheduled, morphine ER scheduled, morphine IR as needed. DVT prophylaxis: SCDs Discharge Planning when cleared by ID Problem Qualifiers (1) UTI (urinary tract infection): Qualified Code: N39.0 - Urinary tract infection without hematuria, site unspecified Rebekah Garcia MD Apr 09, 2016 11:41
[2016-04-09 15:30] VITALS: BP 141/77; PULSE 59; RESP 18; TEMP 98.2; O2SAT 100
[2016-04-09] MEDS: MORPHINE SULFATE 15 MG TAB PO PRN ×2 (15:49→21:19)
[2016-04-09] MEDS: ERTAPENEM INJ 1,000 MG in SODIUM CHLORIDE 0.9% INJ 100 ML IV SCH (15:49)
[2016-04-09 20:00] VITALS: BP 136/70; PULSE 86; RESP 26; TEMP 97.4; O2SAT 92
[2016-04-09] MEDS: CARISOPRODOL 350 MG TAB PO PRN (21:19)
[2016-04-10 04:00] VITALS: BP 136/80; PULSE 82; RESP 16; TEMP 98.8; O2SAT 99
[2016-04-10 04:13] LABS: BICARBONATE 30.6 MEQ/L (21.0-32.0); POTASSIUM 3.2 MEQ/L (3.5-5.1)
[2016-04-10 08:00] VITALS: BP 126/67; PULSE 65; RESP 20; TEMP 97.2; O2SAT 99
[2016-04-10] MEDS: SODIUM CHLORIDE 0.9% FLUSH 5 ML FLUSH FLUSH SCH ×2 (09:00→21:48)
[2016-04-10] MEDS: LACTOBACILLUS ACIDOPHILUS TAB PO SCH ×2 (09:17→21:41)
[2016-04-10] MEDS: TOLTERODINE TARTRATE 2 MG CAP LA PO SCH (09:17)
[2016-04-10] MEDS: BACLOFEN 10 MG TAB PO SCH ×3 (09:17→16:59)
[2016-04-10] MEDS: MORPHINE SULFATE 30 MG CONTROLLED RELEASE TAB PO SCH ×3 (09:17→16:58)
[2016-04-10] MEDS: PREGABALIN 75 MG CAP PO SCH ×2 (09:17→21:41)
[2016-04-10] MEDS: CEFTAROLINE INJ 600 MG in SODIUM CHLORIDE 0.9% INJ 100 ML IV SCH ×2 (09:17→21:40)
[2016-04-10] MEDS: SODIUM HYPOCHLORITE 0.125% 500 ML BTL TOPICAL SCH (09:18)
[2016-04-10 12:00] VITALS: BP 156/99; PULSE 67; RESP 20; TEMP 95.7; O2SAT 98
--- NOTE | 2016-04-10 12:32 | HHI.PR ---
Subjective Remarks Patient resting in bed without complain Will stop Teflaro per ID recommendation today, and continue on ertapenem for 3 more days Objective Vitals Vital Signs Date Time Temp Pulse Resp B/P Pulse Ox O2 Delivery O2 Flow Rate FiO2 04/10/16 08:00 97.2 65 20 126/67 99 04/10/16 04:00 98.8 82 16 136/80 99 04/09/16 20:00 97.4 86 26 136/70 92 04/09/16 16:50 16 04/09/16 15:30 98.2 59 18 141/77 100 I/O 04/09/16 04/09/16 04/09/16 04/10/16 04/10/16 04/10/16 07:00 15:00 23:00 07:00 15:00 23:00 Intake Total 69 ml 109 ml 240 ml Output Total 1500 ml 600 ml 2150 ml Balance -1431 ml -491 ml -1910 ml Intake Oral 240 ml IV Total 69 ml 109 ml 0 ml Output Urine Total 1500 ml 600 ml 2150 ml # Bowel Movements 1 Result Diagram: 04/07/16202904/10/16 0330 Objective Remarks GENERAL: Well-developed well-nourished. In no acute distress. SKIN: Warm and dry. Wound VAC in place over the thoracic spine. He has multiple wounds on buttocks/ sacral area present on admission. HEENT: Normocephalic. Pupils equal and round. Mucous membranes pink and moist. CARDIOVASCULAR: Regular rate and rhythm. No murmur appreciated. RESPIRATORY: No accessory muscle use. Clear to auscultation. Breath sounds equal bilaterally. GASTROINTESTINAL: Abdomen soft, nontender, nondistended. Bowel sounds x4. No CVA tenderness. MUSCULOSKELETAL: No obvious deformities. No clubbing or cyanosis. No edema. NEUROLOGICAL: Awake and alert. Lower extremity paralysis. Strength in the upper extremities. Normal speech. A/P Problem List: (1) Chronic anemia ICD Code: D64.9 Status: Chronic (2) Neurogenic bladder ICD Code: N31.9 Status: Chronic (3) Paraplegia ICD Code: G82.20 Status: Chronic (4) UTI (urinary tract infection) ICD Code: N39.0 Status: Acute (5) Acute kidney injury ICD Code: N17.9 Status: Acute Assessment and Plan 04/05/16: H&H came this morning showing hemoglobin of 6 on the repeat was back up to 10, will repeat another set for confirmation, patient going for EGD and colonoscopy today 04/06/16: Hemoglobin again down to 7.2, will repeat at 6 PM, will transfuse if less than 7 04/07/16: Hemoglobin stable, continue IV antibiotic, 04/08/16: Continue-antibiotic per ID recommendation ertapenem for 14 days, Teflaro until 04/10/16 04/09/16: Continue current care, check bMP in a.m. 04/10/16: Patient to complete his dose of Teflaro today, continue ertapenem for 2 weeks until 04/15/16, then discharge home with home health care if cleared by ID A/P: 30 year old male with past mental history of TBI/spinal injury/paraplegia, spinal hardware infection, RASHAD/AOCD, chronic pain was sent in for acute kidney injury Acute metabolic encephalopathy, Patient with encephalopathy and orofacial dyskinesis and choreiform movement of BL UE poss 2/2 side effects of meds, mild form of serotonin syndrom ( compazine , citalopram -SSRIs and Linezolid - MAO inhibitor. DC citalopram, he is not taking compazine, Received diphenhydramine 25 IV once, start diazepam 1 mg bid Neurology following. Dr Kaminski appreciate recommendations. Acute kidney injury: improving Consult nephrology, appreciate recommendations. Emphasized importance of compliance with self cath he is refusing feliciano. Patient is noncompliant with self cath and refusing feliciano he is at risk of TONY Acute on chronic anemia. Iron deficiency anemia/anemia of chronic disease. Noted with drop in H/H 04/01/16. Transfuse 2PRBCs. Monitor H/H and transfuse as indicated. Resume Lovenox for DVT prophylaxis LUQ Abdominal pain and vomiting/nausea: Improving. Unclear etiology. Lipase within normal limits. Consulted gastroenterology. Supportive care with IVF and antiemetics. Status post EGD/Colonoscopy 04/05 , unremarkable except for stool was not contacted paraplegia and neurogenic bladder 2/2 traumatic SCI recurrent UTI, growing ESBL+ Kleb pneumo - cont Ertapenem x 2 weeks -dc zysvox Multiple wounds on buttocks/ sacral area present on admission. Patient is refusing positioning, discussed at length regarding positioning. 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 wound care following, continue wound vac change M-W-F , History of TBI and spinal injury with resultant paraplegia and chronic pain/T spine infected wound with hardware in place s/p I+D, VAC - side effect to vanco: ARF - side effect to dapto: elevated CKs - now can not tolerate zyvox -On ertapenem and Teflaro : Chronic, stable. Continue Lyrica, topical lidocaine, Soma as needed, baclofen scheduled, morphine ER scheduled, morphine IR as needed. DVT prophylaxis: SCDs Discharge Planning when done with iv ertapenem and cleared by ID Problem Qualifiers (1) UTI (urinary tract infection): Qualified Code: N39.0 - Urinary tract infection without hematuria, site unspecified Rebekah Garcia MD Apr 10, 2016 12:32
[2016-04-10 16:09] VITALS: BP 157/93; PULSE 68; RESP 20; TEMP 96.9; O2SAT 100
[2016-04-10] MEDS: ERTAPENEM INJ 1,000 MG in SODIUM CHLORIDE 0.9% INJ 100 ML IV SCH (16:57)
[2016-04-10 20:00] VITALS: BP 145/74; PULSE 91; RESP 18; TEMP 98; O2SAT 97
[2016-04-10] MEDS: ENOXAPARIN SODIUM 30 MG/0.3 ML SYRINGE SQ SCH (21:48)
[2016-04-10] MEDS: MORPHINE SULFATE 15 MG TAB PO PRN (21:51)
[2016-04-11 01:00] VITALS: BP 136/84; PULSE 58; RESP 18; TEMP 98.9; O2SAT 95
[2016-04-11 04:00] VITALS: BP 129/75; PULSE 61; RESP 18; TEMP 98.2; O2SAT 98
[2016-04-11 08:00] VITALS: BP 113/62; PULSE 57; RESP 16; TEMP 98.1; O2SAT 96
[2016-04-11] MEDS: SODIUM HYPOCHLORITE 0.125% 500 ML BTL TOPICAL SCH (09:00)
[2016-04-11] MEDS: TOLTERODINE TARTRATE 2 MG CAP LA PO SCH (09:47)
[2016-04-11] MEDS: SODIUM CHLORIDE 0.9% FLUSH 5 ML FLUSH FLUSH SCH ×2 (09:47→22:06)
[2016-04-11] MEDS: BACLOFEN 10 MG TAB PO SCH ×3 (09:47→18:59)
[2016-04-11] MEDS: LACTOBACILLUS ACIDOPHILUS TAB PO SCH ×2 (09:47→22:06)
[2016-04-11] MEDS: PREGABALIN 75 MG CAP PO SCH ×2 (09:48→22:06)
[2016-04-11] MEDS: MORPHINE SULFATE 30 MG CONTROLLED RELEASE TAB PO SCH ×3 (09:48→19:00)
[2016-04-11 12:00] VITALS: BP 127/72; PULSE 50; RESP 17; TEMP 97.3; O2SAT 100
--- NOTE | 2016-04-11 13:12 | HHI.PR ---
Subjective Remarks Resting in bed no acute issue no fever or chills I discussed with him the plan to finish 3 more days off ertapenem and then possible discharge home Objective Vitals Vital Signs Date Time Temp Pulse Resp B/P Pulse Ox O2 Delivery O2 Flow Rate FiO2 04/11/16 08:00 98.1 57 16 113/62 96 04/11/16 04:00 98.2 61 18 129/75 98 04/11/16 01:00 98.9 58 18 136/84 95 04/10/16 20:00 98.0 91 18 145/74 97 04/10/16 16:09 96.9 68 20 157/93 100 I/O 04/10/16 04/10/16 04/10/16 04/11/16 04/11/16 04/11/16 07:00 15:00 23:00 07:00 15:00 23:00 Intake Total 240 ml 1920 ml Output Total 2150 ml 1400 ml Balance -1910 ml 520 ml Intake Oral 240 ml 1920 ml IV Total 0 ml Output Urine Total 2150 ml 1400 ml # Bowel Movements 0 1 Result Diagram: 04/07/16202904/10/16 0330 Objective Remarks GENERAL: Well-developed well-nourished. In no acute distress. SKIN: Warm and dry. Wound VAC in place over the thoracic spine. He has multiple wounds on buttocks/ sacral area present on admission. HEENT: Normocephalic. Pupils equal and round. Mucous membranes pink and moist. CARDIOVASCULAR: Regular rate and rhythm. No murmur appreciated. RESPIRATORY: No accessory muscle use. Clear to auscultation. Breath sounds equal bilaterally. GASTROINTESTINAL: Abdomen soft, nontender, nondistended. Bowel sounds x4. No CVA tenderness. MUSCULOSKELETAL: No obvious deformities. No clubbing or cyanosis. No edema. NEUROLOGICAL: Awake and alert. Lower extremity paralysis. Strength in the upper extremities. Normal speech. A/P Problem List: (1) Chronic anemia ICD Code: D64.9 Status: Chronic (2) Neurogenic bladder ICD Code: N31.9 Status: Chronic (3) Paraplegia ICD Code: G82.20 Status: Chronic (4) UTI (urinary tract infection) ICD Code: N39.0 Status: Acute (5) Acute kidney injury ICD Code: N17.9 Status: Acute Assessment and Plan 04/05/16: H&H came this morning showing hemoglobin of 6 on the repeat was back up to 10, will repeat another set for confirmation, patient going for EGD and colonoscopy today 04/06/16: Hemoglobin again down to 7.2, will repeat at 6 PM, will transfuse if less than 7 04/07/16: Hemoglobin stable, continue IV antibiotic, 04/08/16: Continue-antibiotic per ID recommendation ertapenem for 14 days, Teflaro until 04/10/16 04/09/16: Continue current care, check bMP in a.m. 04/10/16: Patient to complete his dose of Teflaro today, continue ertapenem for 2 weeks until 04/15/16, then discharge home with home health care if cleared by ID 04/11/16: No acute issue continue current care, last day of ertapenem 04/14/16 A/P: 30 year old male with past mental history of TBI/spinal injury/paraplegia, spinal hardware infection, RASHAD/AOCD, chronic pain was sent in for acute kidney injury Acute metabolic encephalopathy, Patient with encephalopathy and orofacial dyskinesis and choreiform movement of BL UE poss 2/2 side effects of meds, mild form of serotonin syndrom ( compazine , citalopram -SSRIs and Linezolid - MAO inhibitor. DC citalopram, he is not taking compazine, Received diphenhydramine 25 IV once, start diazepam 1 mg bid Neurology following. Dr Kaminski appreciate recommendations. Acute kidney injury: improving Consult nephrology, appreciate recommendations. Emphasized importance of compliance with self cath he is refusing feliciano. Patient is noncompliant with self cath and refusing feliciano he is at risk of TONY Acute on chronic anemia. Iron deficiency anemia/anemia of chronic disease. Noted with drop in H/H 04/01/16. Transfuse 2PRBCs. Monitor H/H and transfuse as indicated. Resume Lovenox for DVT prophylaxis LUQ Abdominal pain and vomiting/nausea: Improving. Unclear etiology. Lipase within normal limits. Consulted gastroenterology. Supportive care with IVF and antiemetics. Status post EGD/Colonoscopy 04/05 , unremarkable except for stool was not contacted paraplegia and neurogenic bladder 2/2 traumatic SCI recurrent UTI, growing ESBL+ Kleb pneumo - cont Ertapenem x 2 weeks -dc zysvox Multiple wounds on buttocks/ sacral area present on admission. Patient is refusing positioning, discussed at length regarding positioning. 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 wound care following, continue wound vac change M-W-F , History of TBI and spinal injury with resultant paraplegia and chronic pain/T spine infected wound with hardware in place s/p I+D, VAC - side effect to vanco: ARF - side effect to dapto: elevated CKs - now can not tolerate zyvox -On ertapenem and Teflaro : Chronic, stable. Continue Lyrica, topical lidocaine, Soma as needed, baclofen scheduled, morphine ER scheduled, morphine IR as needed. DVT prophylaxis: SCDs Discharge Planning when done with iv ertapenem and cleared by ID Problem Qualifiers (1) UTI (urinary tract infection): Qualified Code: N39.0 - Urinary tract infection without hematuria, site unspecified Rebekah Garcia MD Apr 11, 2016 13:12
[2016-04-11 16:00] VITALS: BP 143/79; PULSE 68; RESP 17; TEMP 97.9; O2SAT 92
[2016-04-11] MEDS: ERTAPENEM INJ 1,000 MG in SODIUM CHLORIDE 0.9% INJ 100 ML IV SCH (18:59)
[2016-04-11 20:00] VITALS: BP 138/74; PULSE 78; RESP 18; TEMP 98; O2SAT 98
[2016-04-11] MEDS: ENOXAPARIN SODIUM 30 MG/0.3 ML SYRINGE SQ SCH (22:06)
[2016-04-11] MEDS: MORPHINE SULFATE 15 MG TAB PO PRN (22:24)
[2016-04-12 01:00] VITALS: BP 125/84; PULSE 63; RESP 18; TEMP 97.8; O2SAT 100
[2016-04-12 04:00] VITALS: BP 127/51; PULSE 65; RESP 18; TEMP 97.2; O2SAT 98
[2016-04-12 08:00] VITALS: BP 117/66; PULSE 60; RESP 18; TEMP 97.7; O2SAT 97
[2016-04-12] MEDS: SODIUM HYPOCHLORITE 0.125% 500 ML BTL TOPICAL SCH (09:00)
--- NOTE | 2016-04-12 10:10 | HHI.PR ---
Subjective Remarks Follow up on multiple wound on buttock sacral infection, in a paraplegic patient , with history of TONY, metabolic encephalopathy, and history of TBI spinal injury. Patient on ertapenem until April 14 after that he will be discharged home with home health care Today patient is doing well, no chest pain or short of breath or fever or chills Objective Vitals Vital Signs Date Time Temp Pulse Resp B/P Pulse Ox O2 Delivery O2 Flow Rate FiO2 04/12/16 08:00 97.7 60 18 117/66 97 04/12/16 04:00 97.2 65 18 127/51 98 04/12/16 01:00 97.8 63 18 125/84 100 04/11/16 20:00 98.0 78 18 138/74 98 04/11/16 16:00 97.9 68 17 143/79 92 04/11/16 12:00 97.3 50 17 127/72 100 I/O 04/11/16 04/11/16 04/11/16 04/12/16 04/12/16 04/12/16 07:00 15:00 23:00 07:00 15:00 23:00 Output Total 1100 ml 2450 ml Balance -1100 ml -2450 ml Output Urine Total 1100 ml 2450 ml # Bowel Movements 1 Result Diagram: 04/10/16 0330 Objective Remarks GENERAL: Well-developed well-nourished. In no acute distress. SKIN: Warm and dry. Wound VAC in place over the thoracic spine. He has multiple wounds on buttocks/ sacral area present on admission. HEENT: Normocephalic. Pupils equal and round. Mucous membranes pink and moist. CARDIOVASCULAR: Regular rate and rhythm. No murmur appreciated. RESPIRATORY: No accessory muscle use. Clear to auscultation. Breath sounds equal bilaterally. GASTROINTESTINAL: Abdomen soft, nontender, nondistended. Bowel sounds x4. No CVA tenderness. MUSCULOSKELETAL: No obvious deformities. No clubbing or cyanosis. No edema. NEUROLOGICAL: Awake and alert. Lower extremity paralysis. Strength in the upper extremities. Normal speech. A/P Problem List: (1) Chronic anemia ICD Code: D64.9 Status: Chronic (2) Neurogenic bladder ICD Code: N31.9 Status: Chronic (3) Paraplegia ICD Code: G82.20 Status: Chronic (4) UTI (urinary tract infection) ICD Code: N39.0 Status: Acute (5) Acute kidney injury ICD Code: N17.9 Status: Acute Assessment and Plan A/P: 30 year old male with past mental history of TBI/spinal injury/paraplegia, spinal hardware infection, RASHAD/AOCD, chronic pain was sent in for acute kidney injury Multiple wounds infection on buttocks/ sacral area present on admission. paraplegia and neurogenic bladder 2/2 traumatic SCI Recurrent UTI, growing ESBL+ Kleb pneumo Patient is refusing positioning, discussed at length regarding positioning. 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 wound care following, continue wound vac change M-W- , Acute metabolic encephalopathy, Patient with encephalopathy and orofacial dyskinesis and choreiform movement of BL UE poss 2/2 side effects of meds, mild form of serotonin syndrom ( compazine , citalopram -SSRIs and Linezolid - MAO inhibitor. DC citalopram, he is not taking compazine, Received diphenhydramine 25 IV once, start diazepam 1 mg bid Neurology following. Dr Kaminski appreciate recommendations. Acute kidney injury: improving Consult nephrology, appreciate recommendations. Emphasized importance of compliance with self cath he is refusing feliciano. Patient is noncompliant with self cath and refusing feliciano he is at risk of TONY Acute on chronic anemia. Iron deficiency anemia/anemia of chronic disease. Noted with drop in H/H 04/01/16. Transfuse 2PRBCs. Monitor H/H and transfuse as indicated. Resume Lovenox for DVT prophylaxis LUQ Abdominal pain and vomiting/nausea: Improving. Unclear etiology. Lipase within normal limits. Consulted gastroenterology. Supportive care with IVF and antiemetics. Status post EGD/Colonoscopy 04/05 , unremarkable except for stool was not contacted History of TBI and spinal injury with resultant paraplegia and chronic pain/T spine infected wound with hardware in place s/p I+D, VAC - side effect to vanco: ARF - side effect to dapto: elevated CKs - now can not tolerate zyvox -On ertapenem and Teflaro : Chronic, stable. Continue Lyrica, topical lidocaine, Soma as needed, baclofen scheduled, morphine ER scheduled, morphine IR as needed. DVT prophylaxis: SCDs Discharge Planning when done with iv ertapenem on 04/14/16 and cleared by ID Problem Qualifiers (1) UTI (urinary tract infection): Qualified Code: N39.0 - Urinary tract infection without hematuria, site unspecified Rebekah Garcia MD Apr 12, 2016 10:10
[2016-04-12] MEDS: BACLOFEN 10 MG TAB PO SCH ×3 (11:10→18:54)
[2016-04-12] MEDS: LACTOBACILLUS ACIDOPHILUS TAB PO SCH ×2 (11:10→20:52)
[2016-04-12] MEDS: PREGABALIN 75 MG CAP PO SCH ×2 (11:10→20:52)
[2016-04-12] MEDS: TOLTERODINE TARTRATE 2 MG CAP LA PO SCH (11:11)
[2016-04-12] MEDS: MORPHINE SULFATE 30 MG CONTROLLED RELEASE TAB PO SCH ×3 (11:11→18:53)
[2016-04-12] MEDS: SODIUM CHLORIDE 0.9% FLUSH 5 ML FLUSH FLUSH SCH ×2 (11:11→20:52)
[2016-04-12 12:00] VITALS: BP 114/70; PULSE 57; RESP 18; TEMP 97.4; O2SAT 98
[2016-04-12 12:25] LABS: BICARBONATE 29.9 MEQ/L (21.0-32.0); MAGNESIUM 1.8 MG/DL (1.5-2.5); POTASSIUM 3.2 MEQ/L (3.5-5.1)
[2016-04-12 16:00] VITALS: BP 134/75; PULSE 74; RESP 19; TEMP 98.5; O2SAT 100
[2016-04-12] MEDS: ERTAPENEM INJ 1,000 MG in SODIUM CHLORIDE 0.9% INJ 100 ML IV SCH (18:53)
[2016-04-12] MEDS: MORPHINE SULFATE 15 MG TAB PO PRN (19:08)
[2016-04-12 20:07] VITALS: BP 125/81; PULSE 69; RESP 18; TEMP 97.9; O2SAT 99
[2016-04-12] MEDS ORDERED: POTASSIUM CHLORIDE 20 MEQ CONTROLLED RELEASE TAB PO ONE (20:30)
[2016-04-12] MEDS: ENOXAPARIN SODIUM 30 MG/0.3 ML SYRINGE SQ SCH (20:51)
[2016-04-12] MEDS: MAGNESIUM SULFAT 1 GM PREMIX 100 ML x2 bags IV SCH ×2 (20:52→22:26)
[2016-04-13 00:38] VITALS: BP 129/77; PULSE 86; RESP 20; TEMP 98.3; O2SAT 100
[2016-04-13 04:50] VITALS: BP 131/75; PULSE 66; RESP 18; TEMP 99.1; O2SAT 98
[2016-04-13 06:40] LABS: BICARBONATE 29.6 MEQ/L (21.0-32.0); POTASSIUM 3.5 MEQ/L (3.5-5.1)
[2016-04-13 08:58] VITALS: BP 122/64; PULSE 70; RESP 20; TEMP 100; O2SAT 95
[2016-04-13] MEDS: SODIUM HYPOCHLORITE 0.125% 500 ML BTL TOPICAL SCH (09:00)
[2016-04-13] MEDS: LACTOBACILLUS ACIDOPHILUS TAB PO SCH ×2 (10:12→23:32)
[2016-04-13] MEDS: MORPHINE SULFATE 30 MG CONTROLLED RELEASE TAB PO SCH ×3 (10:12→16:53)
[2016-04-13] MEDS: CARISOPRODOL 350 MG TAB PO PRN (10:12)
[2016-04-13] MEDS: TOLTERODINE TARTRATE 2 MG CAP LA PO SCH (10:12)
[2016-04-13] MEDS: SODIUM CHLORIDE 0.9% FLUSH 5 ML FLUSH FLUSH SCH ×2 (10:13→23:36)
[2016-04-13] MEDS: PREGABALIN 75 MG CAP PO SCH ×2 (10:13→23:32)
[2016-04-13] MEDS: BACLOFEN 10 MG TAB PO SCH ×3 (10:13→16:53)
[2016-04-13 12:29] VITALS: BP 117/89; PULSE 63; RESP 20; TEMP 101.1; O2SAT 97
--- NOTE | 2016-04-13 12:35 | HHI.PR ---
Subjective Remarks in no acute distress. low grade fever earlier today. no other complaints. Objective Vitals Vital Signs Date Time Temp Pulse Resp B/P Pulse Ox O2 Delivery O2 Flow Rate FiO2 04/13/16 11:21 18 04/13/16 11:21 18 04/13/16 11:21 18 04/13/16 08:58 100.0 70 20 122/64 95 04/13/16 04:50 99.1 66 18 131/75 98 04/13/16 00:38 98.3 86 20 129/77 100 04/12/16 20:07 97.9 69 18 125/81 99 04/12/16 16:00 98.5 74 19 134/75 100 I/O 04/12/16 04/12/16 04/12/16 04/13/16 04/13/16 04/13/16 07:00 15:00 23:00 07:00 15:00 23:00 Intake Total 240 ml 240 ml Output Total 2450 ml 1200 ml 850 ml 1500 ml Balance -2450 ml -1200 ml -610 ml -1260 ml Intake Oral 240 ml 240 ml Output Urine Total 2450 ml 1200 ml 850 ml 1500 ml # Bowel Movements 0 Result Diagram: 04/13/16 0600 Imaging Last Impressions Head CT 04/02/16 0000 Signed Impressions: Service Date/Time: Saturday, April 02, 2016 10:51 - CONCLUSION: Normal examination. Jose Dukes MD Renal Ultrasound 03/31/16 0000 Signed Impressions: Service Date/Time: Thursday, March 31, 2016 11:35 - CONCLUSION: Kidneys are normal other than questionable minimal increase echotexture the cortex. Cortical medullary junction is well-maintained with no evidence hydronephrosis. Sam Montiel MD Objective Remarks GENERAL: This is a well-nourished, well-developed patient, in no apparent distress. CARDIOVASCULAR: Regular rate and regular rhythm without murmurs, gallops, or rubs. RESPIRATORY: Clear to auscultation. Breath sounds equal bilaterally. No wheezes , rales, or rhonchi. GASTROINTESTINAL: Abdomen soft, non-tender, nondistended. Normal, active bowel sounds MUSCULOSKELETAL: Extremities without clubbing, cyanosis, or edema. NEURO: Alert & Oriented x4 to person, place, time, situation. Medications and IVs Current Medications Sodium Chloride (NS 1000 ml Inj) 1,000 ml @ 70 mls/hr [id number] IV Last administered on 04/02/16 23:43; Start 03/30/16 at 18:14; Stop 04/03/16 at 11:07 ; Status DC IV Flush (NS Flush) 2 ml UNSCH PRN FLUSH FLUSH AFTER USING IV ACCESS; Start at 18:15 IV Flush (NS Flush) 2 ml BID FLUSH Last administered on 04/13/16 10:13; Start 03/30/16 at 21:00 Acetaminophen (Tylenol) 650 mg Q4H PRN PO TEMP > 100.4; Start 03/30/16 at 18: 15 Ondansetron HCl (Zofran Inj) 4 mg Q6H PRN IVP NAUSEA OR VOMITING Last administered on 04/04/16 13:06; Start 03/30/16 at 18:15 Prochlorperazine (Compazine Supp) 25 mg Q12H PRN [place] NAUSEA OR VOMITING; Start 03/30/16 at 18:15; Stop 04/02/16 at 15:59; Status DC Bisacodyl (Dulcolax Supp) 10 mg DAILY PRN [place] CONSTIPATION; Start 03/30/16 at 18:15 Magnesium Hydroxide (Milk Of Magnesia Liq) 30 ml Q12H PRN PO CONSTIPATION; Start 03/30/16 at 18:15 Sennosides (Senokot) 17.2 mg Q12H PRN PO CONSTIPATION; Start 03/30/16 at 18:15 Enoxaparin Sodium (Lovenox Inj) 30 mg Q24H SQ Last administered on 04/12/16 20 :51; Start 03/30/16 at 20:00 Baclofen (Lioresal) 10 mg TID PO Last administered on 04/13/16 10:13; Start 03/31/16 at 09:00 Carisoprodol (Soma) 350 mg Q8HR PRN PO MUSCLE PAIN Last administered on 10:12; Start 03/30/16 at 18:30 Lactobacillus Acidophilus (Lactinex) 1 tab BID PO Last administered on 10:12; Start 03/30/16 at 21:00 Lidocaine HCl (Xylocaine 2% Jelly) 1 applic DAILY PRN TOPICAL PAIN; Start at 18:30 Linezolid (Zyvox) 600 mg BID PO Last administered on 04/03/16 09:15; Start at 21:00; Stop 04/03/16 at 18:55; Status DC Morphine Sulfate (Oramorph Sr) 30 mg TID PO Last administered on 04/13/16 10: 12; Start 03/31/16 at 09:00 Morphine Sulfate (Msir) 15 mg Q4H PRN PO BREAKTHROUGH PAIN Last administered on 04/12/16 19:08; Start 03/30/16 at 18:30 Pregabalin (Lyrica) 200 mg BID PO Last administered on 03/31/16at 10:14; Start 03/30/16 at 21:00; Stop 03/31/16 at 15:35; Status DC Sodium Hypochlorite (Dakin'S 0.125% Soln) 0.125 ml DAILY TOPICAL Last administered on 04/13/16 09:00; Start 03/31/16 at 09:00 Tolterodine Tartrate 2 mg 2 mg DAILY PO Last administered on 04/13/16 10:12; Start 03/31/16 at 09:00 Piperacillin Sod/ Tazobactam Sod (Zosyn 2.25 Gm Premix) 50 ml @ 100 mls/hr Q6H IV Last administered on 04/01/16at 13:27; Start 03/30/16 at 20:00; Stop 04/01 at 14:02; Status DC Citalopram Hydrobromide (CeleXA) 20 mg DAILY PO Last administered on 04/02/16 10:03; Start 03/31/16 at 09:00; Stop 04/02/16 at 15:57; Status DC Pregabalin (Lyrica) 75 mg BID PO Last administered on 04/13/16 10:13; Start 03/31/16 at 21:00 Alteplase, Recombinant 2 mg 2 mg Q2H PRN INTRACATH picc meter and service line inspector Last administered on 03/31/16at 18:21; Start 03/31/16 at 15:45 Sodium Chloride (NS 250 ml Inj) 250 ml @ 15 mls/hr ONCE ONCE IV ; Start 04/01 at 06:45; Stop 04/01/16 at 23:24; Status DC Furosemide (Lasix Inj) 20 mg ONCE ONCE IV Last administered on 04/01/16at 13: 28; Start 04/01/16 at 06:45; Stop 04/01/16 at 06:48; Status DC Miscellaneous Medication (ASP Crit: Doc ESBL, MDR A baumannii or P aer) 1 UNSCH X1 PRN XX PHARMACY DOCUMENTATION; Start 04/01/16 at 14:00; Stop 04/02/16 at 13: 59; Status DC Miscellaneous Medication 1 1 UNSCH X1 PRN XX PHARMACY DOCUMENTATION; Start at 14:00; Stop 04/02/16 at 13:59; Status DC Ertapenem/Sodium Chloride (INVanz INJ/NS Inj) 100 ml @ 200 mls/hr Q24H IV Last administered on 04/01/16at 15:50; Start 04/01/16 at 16:00; Stop 04/02/16 at 08:39; Status DC Sodium Polystyrene Sulfonate 15 gm 15 gm ONCE ONCE PO ; Start 04/01/16 at 21: 30; Stop 04/01/16 at 21:30; Status DC Ertapenem/Sodium Chloride (INVanz INJ/NS Inj) 100 ml @ 200 mls/hr Q24H IV Last administered on 04/12/16 18:53; Start 04/02/16 at 16:00 Diphenhydramine HCl (Benadryl Inj) 25 mg ONCE ONCE IV PUSH Last administered on 04/02/16 12:53; Start 04/02/16 at 12:30; Stop 04/02/16 at 12:36; Status DC Diazepam (Valium) 1 mg Q12HR PO Last administered on 04/03/16 09:15; Start 04/02 at 21:00; Stop 04/03/16 at 20:59; Status DC Polyethylene Glycol/ Electrolytes (Colyte Liq) 4,000 ml ONCE ONCE PO ; Start at 12:00; Stop 04/03/16 at 14:13; Status DC Bisacodyl (Dulcolax Ec) 10 mg ONCE ONCE PO ; Start 04/03/16 at 12:00; Stop at 12:01; Status DC Polyethylene Glycol/ Electrolytes 4000 ml 4,000 ml ONCE ONCE PO ; Start at 17:00; Stop 04/04/16 at 17:01; Status DC Ceftaroline Fosamil/Sodium Chloride (Teflaro Inj/NS Inj) 100 ml @ 100 mls/hr Q12H IV Last administered on 04/06/16 22:59; Start 04/03/16 at 20:00; Stop at 20:45; Status DC Baclofen (Lioresal) 10 mg ONCE ONCE PO Last administered on 04/03/16 22:07; Start 04/03/16 at 19:45; Stop 04/03/16 at 19:46; Status DC Potassium Chloride 60 meq 60 meq ONCE ONCE PO Last administered on 04/04/16 06 :45; Start 04/04/16 at 06:45; Stop 04/04/16 at 06:46; Status DC Potassium Chloride (KCl 20 Meq Premix Inj) 100 ml @ 50 mls/hr BOLUS ONCE IV Last administered on 04/04/16 09:28; Start 04/04/16 at 09:00; Stop 04/04/16 at 10: 59; Status DC Furosemide (Lasix Inj) 10 mg ONCE ONCE IV ; Start 04/05/16 at 11:00; Stop at 11:11; Status DC Ketamine HCl 500 mg 500 mg STK-MED ONCE .ROUTE ; Start 04/05/16 at 13:46; Stop at 13:47; Status DC Potassium Chloride (KCl 20 Meq Premix Inj) 100 ml @ 50 mls/hr BOLUS ONCE IV Last administered on 04/05/16 14:00; Start 04/05/16 at 14:00; Stop 04/05/16 at 15: 59; Status DC Propofol (Diprivan 200 Mg/20 ml Inj) 160 mg STK-MED ONCE IV ; Start 04/05/16 at 11:47; Stop 04/05/16 at 15:52; Status DC Potassium Chloride (KCl) 40 meq ONCE ONCE PO Last administered on 04/06/16 13: 45; Start 04/06/16 at 13:45; Stop 04/06/16 at 13:51; Status DC Midazolam HCl 2 mg 2 mg STK-MED ONCE IV Last administered on 04/05/16 11:22; Start 04/05/16 at 11:22; Stop 04/06/16 at 16:01; Status DC Ceftaroline Fosamil 600 mg/ Sodium Chloride 100 ml @ 100 mls/hr Q12H IV Last administered on 04/10/16 21:40; Start 04/08/16 at 08:00; Stop 04/10/16 at 22:00; Status DC Magnesium Sulfate/ Dextrose (Magnesium Sulfate 1 Gm Premix) 100 ml @ 100 mls/ hr Q1H IV Last administered on 04/12/16 22:26; Start 04/12/16 at 20:30; Stop 04/12/16 at 22:29; Status DC Potassium Chloride (KCl) 40 meq NOW ONCE PO Last administered on 04/12/16 20: 52; Start 04/12/16 at 20:30; Stop 04/12/16 at 20:31; Status DC A/P Assessment and Plan A/P Multiple wounds infection on buttocks/ sacral area present on admission. 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 wound care following, continue wound vac change M-W-F , Acute metabolic encephalopathy, Patient with encephalopathy and orofacial dyskinesis and choreiform movement of BL UE poss 2/2 side effects of meds, mild form of serotonin syndrom ( compazine , citalopram -SSRIs and Linezolid - MAO inhibitor. DC citalopram, he is not taking compazine, Received diphenhydramine 25 IV once. evaluated by neurology. Acute kidney injury: resolved Consulted nephrology who has signed off. Emphasized importance of compliance with self cath he is refusing feliciano. Acute on chronic anemia. Iron deficiency anemia/anemia of chronic disease. Noted with drop in H/H 04/01/16. Transfused 2PRBCs. Monitor H/H and transfuse as indicated. Resumed Lovenox for DVT prophylaxis LUQ Abdominal pain and vomiting/nausea: Improving. Unclear etiology. Lipase within normal limits. Consulteded gastroenterology. Supportive care with IVF and antiemetics. 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 Continue Lyrica, topical lidocaine, Soma as needed, baclofen scheduled, morphine ER scheduled, morphine IR as needed. DVT prophylaxis: SCDs Discharge Planning discharge when the course of antibiotic has been completed and remains stable. Jena Segura MD Apr 13, 2016 12:35
[2016-04-13] MEDS: ACETAMINOPHEN 325 MG TAB PO PRN ×2 (13:30→23:32)
[2016-04-13 16:31] VITALS: BP 120/68; PULSE 64; RESP 20; TEMP 99.1; O2SAT 98
[2016-04-13] MEDS: ERTAPENEM INJ 1,000 MG in SODIUM CHLORIDE 0.9% INJ 100 ML IV SCH (16:53)
[2016-04-13] MEDS: MORPHINE SULFATE 15 MG TAB PO PRN ×2 (18:02→23:34)
[2016-04-13 20:14] VITALS: BP 167/89; PULSE 83; RESP 20; TEMP 100; O2SAT 98
--- NOTE | 2016-04-13 22:19 | HHI.IDPN ---
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 Vital Signs Date Time Temp Pulse Resp B/P Pulse Ox O2 Delivery O2 Flow Rate FiO2 04/13/16 20:14 100.0 83 20 167/89 98 04/13/16 18:03 18 04/13/16 16:31 99.1 64 20 120/68 98 04/13/16 15:47 18 04/13/16 12:29 101.1 63 20 117/89 97 04/13/16 11:21 18 04/13/16 11:21 18 04/13/16 08:58 100.0 70 20 122/64 95 04/13/16 04:50 99.1 66 18 131/75 98 04/13/16 00:38 98.3 86 20 129/77 100 04/12/16 04/12/16 04/13/16 15:00 23:00 07:00 Intake Total 240 ml 240 ml Output Total 1200 ml 850 ml 1500 ml Balance -1200 ml -610 ml -1260 ml Intake Oral 240 ml 240 ml Output Urine Total 1200 ml 850 ml 1500 ml # Bowel Movements 0 . Laboratory Tests Test 04/12/16 04/13/16 11:35 06:00 Sodium Level 141 MEQ/L 141 MEQ/L Potassium Level 3.2 MEQ/L 3.5 MEQ/L Chloride Level 105 MEQ/L 106 MEQ/L Carbon Dioxide Level 29.9 MEQ/L 29.6 MEQ/L Anion Gap 6 MEQ/L 5 MEQ/L Blood Urea Nitrogen 11 MG/DL 12 MG/DL Creatinine 0.97 MG/DL 1.22 MG/DL Estimat Glomerular Filtration 91 ML/MIN 70 ML/MIN Rate Random Glucose 88 MG/DL 95 MG/DL Calcium Level 9.5 MG/DL 9.7 MG/DL Magnesium Level 1.8 MG/DL Imaging Last Impressions Head CT 04/02/16 0000 Signed Impressions: Service Date/Time: Saturday, April 02, 2016 10:51 - CONCLUSION: Normal examination. Jose Dukes MD Renal Ultrasound 03/31/16 0000 Signed Impressions: Service Date/Time: Thursday, March 31, 2016 11:35 - CONCLUSION: Kidneys are normal other than questionable minimal increase echotexture the cortex. Cortical medullary junction is well-maintained with no evidence hydronephrosis. Sam Montiel MD Physical Exam CONSTITUTIONAL/GENERAL: This is an adequately nourished patient, in no apparent distress. TUBES/LINES/DRAINS: PICC in place RUE site looks OK SKIN: No jaundice, rashes, EYES: Pupils equal and round and reactive. Extraocular motions intact. No scleral icterus. No injection or drainage. Fundi not examined. ENT: Hearing grossly normal. Nose without bleeding or purulent drainage. Oral mucosae moist CARDIOVASCULAR: Regular rate and rhythm without murmurs, gallops, or rubs. RESPIRATORY/CHEST: Symmetric, unlabored respirations. Clear to auscultation. GASTROINTESTINAL: Abdomen soft, non-tender, nondistended. GENITOURINARY: Without palpable bladder distension. Vargas catheter in place MUSCULOSKELETAL: Extremities without clubbing, cyanosis, Trace amount of soft pitting edema. No mottling or clubbing. LYMPHATICS: No palpable cervical or supraclavicular adenopathy. NEUROLOGICAL: Awake and alert. Paraplegia. Follows commands. Speech normal Moves b/l upper extremities. 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 source ? PICC vs new UTI - complete Ertapenem rechk ESR - rechk blood clx and UA, reflex C+S dw Mamie Medel MD Apr 13, 2016 22:19
[2016-04-13] MEDS: ENOXAPARIN SODIUM 30 MG/0.3 ML SYRINGE SQ SCH (23:36)
[2016-04-14 00:07] LABS: BACTERIA, URINE OCC /hpf; BLOOD, URINE LARGE (NEG); GLUCOSE,URINE TRACE mg/dL (NEG); HYALINE CAST, URINE 11 /lpf (RARE); KETONE, URINE NEG (NEG); MUCUS URINE FEW /lpf (OCC); NITRITE,URINE NEG (NEG); PH, URINE 7.5 (5.0-8.5); RENAL EPITHELIAL CELLS <1 /hpf; URINE COLOR YELLOW (YELLW/STRAW)
[2016-04-14 00:08] LABS: COMMENT (UR) CATH-CULTURE IND; CULTURE IF INDICATED CATH CULTURE IND
[2016-04-14 00:53] VITALS: BP 143/75; PULSE 90; RESP 18; TEMP 100.4; O2SAT 96
[2016-04-14 04:45] VITALS: BP 126/62; PULSE 75; RESP 18; TEMP 100.8; O2SAT 96
[2016-04-14] MEDS: ACETAMINOPHEN 325 MG TAB PO PRN (05:59)
[2016-04-14] MEDS: CARISOPRODOL 350 MG TAB PO PRN (06:00)
[2016-04-14] MEDS: MORPHINE SULFATE 15 MG TAB PO PRN ×3 (06:15→22:43)
[2016-04-14 08:26] VITALS: BP 115/58; PULSE 65; RESP 18; TEMP 99.9; O2SAT 96
[2016-04-14] MEDS: SODIUM CHLORIDE 0.9% FLUSH 5 ML FLUSH FLUSH SCH ×2 (08:54→21:00)
[2016-04-14] MEDS: BACLOFEN 10 MG TAB PO SCH ×3 (08:55→17:30)
[2016-04-14] MEDS: TOLTERODINE TARTRATE 2 MG CAP LA PO SCH (08:55)
[2016-04-14] MEDS: LACTOBACILLUS ACIDOPHILUS TAB PO SCH ×2 (08:55→21:26)
[2016-04-14] MEDS: PREGABALIN 75 MG CAP PO SCH ×2 (08:55→21:26)
[2016-04-14] MEDS: MORPHINE SULFATE 30 MG CONTROLLED RELEASE TAB PO SCH ×3 (08:55→17:30)
[2016-04-14] MEDS: SODIUM HYPOCHLORITE 0.125% 500 ML BTL TOPICAL SCH (08:57)
--- NOTE | 2016-04-14 09:03 | HHI.PR ---
Subjective Remarks low grade fever earlier. in now distress. no new complaints. d/w the RN and no other acute issues over night. Objective Vitals Vital Signs Date Time Temp Pulse Resp B/P Pulse Ox O2 Delivery O2 Flow Rate FiO2 04/14/16 08:26 99.9 65 18 115/58 96 04/14/16 07:23 16 04/14/16 07:23 16 04/14/16 04:45 100.8 75 18 126/62 96 04/14/16 00:53 100.4 90 18 143/75 96 04/14/16 00:17 18 04/14/16 00:17 18 04/13/16 20:14 100.0 83 20 167/89 98 04/13/16 18:03 18 04/13/16 16:31 99.1 64 20 120/68 98 04/13/16 12:29 101.1 63 20 117/89 97 I/O 04/13/16 04/13/16 04/13/16 04/14/16 04/14/16 04/14/16 07:00 15:00 23:00 07:00 15:00 23:00 Intake Total 240 ml 720 ml Output Total 1500 ml 2200 ml Balance -1260 ml 720 ml -2200 ml Intake Oral 240 ml 720 ml Output Urine Total 1500 ml 2200 ml # Bowel Movements 0 Result Diagram: 04/13/16 0600 Imaging Last Impressions Head CT 04/02/16 0000 Signed Impressions: Service Date/Time: Saturday, April 02, 2016 10:51 - CONCLUSION: Normal examination. Jose Dukes MD Renal Ultrasound 03/31/16 0000 Signed Impressions: Service Date/Time: Thursday, March 31, 2016 11:35 - CONCLUSION: Kidneys are normal other than questionable minimal increase echotexture the cortex. Cortical medullary junction is well-maintained with no evidence hydronephrosis. Sam Montiel MD Objective Remarks GENERAL: This is a well-nourished, well-developed patient, in no apparent distress. CARDIOVASCULAR: Regular rate and regular rhythm without murmurs, gallops, or rubs. RESPIRATORY: Clear to auscultation. Breath sounds equal bilaterally. No wheezes , rales, or rhonchi. GASTROINTESTINAL: Abdomen soft, non-tender, nondistended. Normal, active bowel sounds MUSCULOSKELETAL: Extremities without clubbing, cyanosis, or edema. NEURO: Alert & Oriented x4 to person, place, time, situation. Medications and IVs Current Medications Sodium Chloride (NS 1000 ml Inj) 1,000 ml @ 70 mls/hr [id number] IV Last administered on 04/02/16 23:43; Start 03/30/16 at 18:14; Stop 04/03/16 at 11:07 ; Status DC IV Flush (NS Flush) 2 ml UNSCH PRN FLUSH FLUSH AFTER USING IV ACCESS; Start at 18:15 IV Flush (NS Flush) 2 ml BID FLUSH Last administered on 04/13/16 23:36; Start 03/30/16 at 21:00 Acetaminophen (Tylenol) 650 mg Q4H PRN PO TEMP > 100.4 Last administered on 05:59; Start 03/30/16 at 18:15 Ondansetron HCl (Zofran Inj) 4 mg Q6H PRN IVP NAUSEA OR VOMITING Last administered on 04/04/16 13:06; Start 03/30/16 at 18:15 Prochlorperazine (Compazine Supp) 25 mg Q12H PRN [place] NAUSEA OR VOMITING; Start 03/30/16 at 18:15; Stop 04/02/16 at 15:59; Status DC Bisacodyl (Dulcolax Supp) 10 mg DAILY PRN [place] CONSTIPATION; Start 03/30/16 at 18:15 Magnesium Hydroxide (Milk Of Magnesia Liq) 30 ml Q12H PRN PO CONSTIPATION; Start 03/30/16 at 18:15 Sennosides (Senokot) 17.2 mg Q12H PRN PO CONSTIPATION; Start 03/30/16 at 18:15 Enoxaparin Sodium (Lovenox Inj) 30 mg Q24H SQ Last administered on 04/13/16 23 :36; Start 03/30/16 at 20:00 Baclofen (Lioresal) 10 mg TID PO Last administered on 04/13/16 16:53; Start 03/31/16 at 09:00 Carisoprodol (Soma) 350 mg Q8HR PRN PO MUSCLE PAIN Last administered on 06:00; Start 03/30/16 at 18:30 Lactobacillus Acidophilus (Lactinex) 1 tab BID PO Last administered on 23:32; Start 03/30/16 at 21:00 Lidocaine HCl (Xylocaine 2% Jelly) 1 applic DAILY PRN TOPICAL PAIN; Start at 18:30 Linezolid (Zyvox) 600 mg BID PO Last administered on 04/03/16 09:15; Start at 21:00; Stop 04/03/16 at 18:55; Status DC Morphine Sulfate (Oramorph Sr) 30 mg TID PO Last administered on 04/13/16 16: 53; Start 03/31/16 at 09:00 Morphine Sulfate (Msir) 15 mg Q4H PRN PO BREAKTHROUGH PAIN Last administered on 04/14/16 06:15; Start 03/30/16 at 18:30 Pregabalin (Lyrica) 200 mg BID PO Last administered on 03/31/16at 10:14; Start 03/30/16 at 21:00; Stop 03/31/16 at 15:35; Status DC Sodium Hypochlorite (Dakin'S 0.125% Soln) 0.125 ml DAILY TOPICAL Last administered on 04/13/16 09:00; Start 03/31/16 at 09:00 Tolterodine Tartrate 2 mg 2 mg DAILY PO Last administered on 04/13/16 10:12; Start 03/31/16 at 09:00 Piperacillin Sod/ Tazobactam Sod (Zosyn 2.25 Gm Premix) 50 ml @ 100 mls/hr Q6H IV Last administered on 04/01/16at 13:27; Start 03/30/16 at 20:00; Stop 04/01 at 14:02; Status DC Citalopram Hydrobromide (CeleXA) 20 mg DAILY PO Last administered on 04/02/16 10:03; Start 03/31/16 at 09:00; Stop 04/02/16 at 15:57; Status DC Pregabalin (Lyrica) 75 mg BID PO Last administered on 04/13/16 23:32; Start 03/31/16 at 21:00 Alteplase, Recombinant 2 mg 2 mg Q2H PRN INTRACATH picc packaging line operator Last administered on 03/31/16at 18:21; Start 03/31/16 at 15:45 Sodium Chloride (NS 250 ml Inj) 250 ml @ 15 mls/hr ONCE ONCE IV ; Start 04/01 at 06:45; Stop 04/01/16 at 23:24; Status DC Furosemide (Lasix Inj) 20 mg ONCE ONCE IV Last administered on 04/01/16at 13: 28; Start 04/01/16 at 06:45; Stop 04/01/16 at 06:48; Status DC Miscellaneous Medication (ASP Crit: Doc ESBL, MDR A baumannii or P aer) 1 UNSCH X1 PRN XX PHARMACY DOCUMENTATION; Start 04/01/16 at 14:00; Stop 04/02/16 at 13: 59; Status DC Miscellaneous Medication 1 1 UNSCH X1 PRN XX PHARMACY DOCUMENTATION; Start at 14:00; Stop 04/02/16 at 13:59; Status DC Ertapenem/Sodium Chloride (INVanz INJ/NS Inj) 100 ml @ 200 mls/hr Q24H IV Last administered on 04/01/16at 15:50; Start 04/01/16 at 16:00; Stop 04/02/16 at 08:39; Status DC Sodium Polystyrene Sulfonate 15 gm 15 gm ONCE ONCE PO ; Start 04/01/16 at 21: 30; Stop 04/01/16 at 21:30; Status DC Ertapenem/Sodium Chloride (INVanz INJ/NS Inj) 100 ml @ 200 mls/hr Q24H IV Last administered on 04/13/16 16:53; Start 04/02/16 at 16:00 Diphenhydramine HCl (Benadryl Inj) 25 mg ONCE ONCE IV PUSH Last administered on 04/02/16 12:53; Start 04/02/16 at 12:30; Stop 04/02/16 at 12:36; Status DC Diazepam (Valium) 1 mg Q12HR PO Last administered on 04/03/16 09:15; Start 04/02 at 21:00; Stop 04/03/16 at 20:59; Status DC Polyethylene Glycol/ Electrolytes (Colyte Liq) 4,000 ml ONCE ONCE PO ; Start at 12:00; Stop 04/03/16 at 14:13; Status DC Bisacodyl (Dulcolax Ec) 10 mg ONCE ONCE PO ; Start 04/03/16 at 12:00; Stop at 12:01; Status DC Polyethylene Glycol/ Electrolytes 4000 ml 4,000 ml ONCE ONCE PO ; Start at 17:00; Stop 04/04/16 at 17:01; Status DC Ceftaroline Fosamil/Sodium Chloride (Teflaro Inj/NS Inj) 100 ml @ 100 mls/hr Q12H IV Last administered on 04/06/16 22:59; Start 04/03/16 at 20:00; Stop at 20:45; Status DC Baclofen (Lioresal) 10 mg ONCE ONCE PO Last administered on 04/03/16 22:07; Start 04/03/16 at 19:45; Stop 04/03/16 at 19:46; Status DC Potassium Chloride 60 meq 60 meq ONCE ONCE PO Last administered on 04/04/16 06 :45; Start 04/04/16 at 06:45; Stop 04/04/16 at 06:46; Status DC Potassium Chloride (KCl 20 Meq Premix Inj) 100 ml @ 50 mls/hr BOLUS ONCE IV Last administered on 04/04/16 09:28; Start 04/04/16 at 09:00; Stop 04/04/16 at 10: 59; Status DC Furosemide (Lasix Inj) 10 mg ONCE ONCE IV ; Start 04/05/16 at 11:00; Stop at 11:11; Status DC Ketamine HCl 500 mg 500 mg STK-MED ONCE .ROUTE ; Start 04/05/16 at 13:46; Stop at 13:47; Status DC Potassium Chloride (KCl 20 Meq Premix Inj) 100 ml @ 50 mls/hr BOLUS ONCE IV Last administered on 04/05/16 14:00; Start 04/05/16 at 14:00; Stop 04/05/16 at 15: 59; Status DC Propofol (Diprivan 200 Mg/20 ml Inj) 160 mg STK-MED ONCE IV ; Start 04/05/16 at 11:47; Stop 04/05/16 at 15:52; Status DC Potassium Chloride (KCl) 40 meq ONCE ONCE PO Last administered on 04/06/16 13: 45; Start 04/06/16 at 13:45; Stop 04/06/16 at 13:51; Status DC Midazolam HCl 2 mg 2 mg STK-MED ONCE IV Last administered on 04/05/16 11:22; Start 04/05/16 at 11:22; Stop 04/06/16 at 16:01; Status DC Ceftaroline Fosamil 600 mg/ Sodium Chloride 100 ml @ 100 mls/hr Q12H IV Last administered on 04/10/16 21:40; Start 04/08/16 at 08:00; Stop 04/10/16 at 22:00; Status DC Magnesium Sulfate/ Dextrose (Magnesium Sulfate 1 Gm Premix) 100 ml @ 100 mls/ hr Q1H IV Last administered on 04/12/16 22:26; Start 04/12/16 at 20:30; Stop 04/12/16 at 22:29; Status DC Potassium Chloride (KCl) 40 meq NOW ONCE PO Last administered on 04/12/16 20: 52; Start 04/12/16 at 20:30; Stop 04/12/16 at 20:31; Status DC A/P Assessment and Plan A/P Multiple wounds infection on buttocks/ sacral area present on admission. 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 Patient received Teflaro, currently on ertapenem until April 14 to finish 14 days per ID recommendation Chronic back wound with wound VAC: marketing support assistant consult to continue wound VAC care and multiple pressure wounds. wound care following, continue wound vac change M-W-F . Acute metabolic encephalopathy, Patient with encephalopathy and orofacial dyskinesis and choreiform movement of BL UE poss 2/2 side effects of meds, mild form of serotonin syndrom ( compazine , citalopram -SSRIs and Linezolid - MAO inhibitor. DC citalopram, he is not taking compazine, Received diphenhydramine 25 IV once. evaluated by neurology. Acute kidney injury: resolved Consulted nephrology who has signed off. Emphasized importance of compliance with self cath he is refusing feliciano. Acute on chronic anemia. Iron deficiency anemia/anemia of chronic disease. Noted with drop in H/H 04/01/16. Transfused 2PRBCs. Monitor H/H and transfuse as indicated. Resumed Lovenox for DVT prophylaxis LUQ Abdominal pain and vomiting/nausea: Improving. Unclear etiology. Lipase within normal limits. Consulteded gastroenterology. Supportive care with IVF and antiemetics. 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 Continue Lyrica, topical lidocaine, Soma as needed, baclofen scheduled, morphine ER scheduled, morphine IR as needed. recurrent fever continue ertapenem- follow the blood cultures- check ESR- ID following. DVT prophylaxis: SCDs Discharge Planning not ready for discharge due to recurrent fever. Jena Segura MD Apr 14, 2016 09:03
[2016-04-14 13:12] VITALS: BP 125/71; PULSE 73; RESP 18; TEMP 98.4; O2SAT 98
[2016-04-14] MEDS: ERTAPENEM INJ 1,000 MG in SODIUM CHLORIDE 0.9% INJ 100 ML IV SCH (14:39)
[2016-04-14 17:00] VITALS: BP 133/83; PULSE 71; RESP 18; TEMP 99.4; O2SAT 99
--- NOTE | 2016-04-14 17:13 | HHI.IDPN ---
Subjective Subjective Remarks Having fever, low grade ESR is high 57 No other co feels OK Antibiotics ertapenem Past Medical History paraplegia frequent UTIs Allergies: Coded Allergies: Vancomycin (Verified Adverse Reaction, Intermediate, 03/30/16) *MDRO Multi-Drug Resistant Organism (Verified Adverse Reaction, Unknown, XDR Pseudomonas, MRSA, 04/04/16) 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 (back-02/11/16) extensively drug resistant Pseudomonas aeruginosa (urine) -03/03/16; ESBL Klebsiella Pneumoniae (urine-03/30/16) Objective . Vital Signs Date Time Temp Pulse Resp B/P Pulse Ox O2 Delivery O2 Flow Rate FiO2 04/14/16 17:00 99.4 71 18 133/83 99 04/14/16 13:12 98.4 73 18 125/71 98 04/14/16 08:26 99.9 65 18 115/58 96 04/14/16 07:23 16 04/14/16 07:23 16 04/14/16 04:45 100.8 75 18 126/62 96 04/14/16 00:53 100.4 90 18 143/75 96 04/14/16 00:17 18 04/14/16 00:17 18 04/13/16 20:14 100.0 83 20 167/89 98 04/13/16 18:03 18 04/13/16 04/13/16 04/14/16 14:59 22:59 06:59 Intake Total 720 ml Output Total 2200 ml Balance 720 ml -2200 ml Intake Oral 720 ml Output Urine Total 2200 ml # Bowel Movements 0 . Laboratory Tests Test 04/14/16 11:15 Erythrocyte Sedimentation Rate 57 mm/hr Laboratory Tests Test 04/13/16 06:00 Sodium Level 141 MEQ/L Potassium Level 3.5 MEQ/L Chloride Level 106 MEQ/L Carbon Dioxide Level 29.6 MEQ/L Anion Gap 5 MEQ/L Blood Urea Nitrogen 12 MG/DL Creatinine 1.22 MG/DL Estimat Glomerular Filtration 70 ML/MIN Rate Random Glucose 95 MG/DL Calcium Level 9.7 MG/DL Microbiology Date/Time Procedure Status Source Growth 04/13/16 23:40 Urine Culture - Preliminary Resulted Urine Catheterized Urine RESULTS PENDING 04/14/16 06:15 Aerobic Blood Culture Received Blood Peripheral Pending 04/14/16 06:15 Anaerobic Blood Culture Received Blood Peripheral Pending Imaging Last Imp Last Impressions Head CT 04/02/16 0000 Signed Impressions: Service Date/Time: Saturday, April 02, 2016 10:51 - CONCLUSION: Normal examination. Jose Dukes MD Renal Ultrasound 03/31/16 0000 Signed Impressions: Service Date/Time: Thursday, March 31, 2016 11:35 - CONCLUSION: Kidneys are normal other than questionable minimal increase echotexture the cortex. Cortical medullary junction is well-maintained with no evidence hydronephrosis. Sam oMntiel MD Physical Exam CONSTITUTIONAL/GENERAL: This is an adequately nourished patient, in no apparent distress. TUBES/LINES/DRAINS: PICC in place RUE site looks OK SKIN: No jaundice, rashes, EYES: Pupils equal and round and reactive. Extraocular motions intact. No scleral icterus. ENT: Hearing grossly normal. CARDIOVASCULAR: Regular rate and rhythm without murmurs, gallops, or rubs. RESPIRATORY/CHEST: Symmetric, unlabored respirations. Clear to auscultation. GASTROINTESTINAL: Abdomen soft, non-tender, nondistended. GENITOURINARY: Without palpable bladder distension. Vargas catheter in place with bloody appearing urine MUSCULOSKELETAL: Extremities without clubbing, cyanosis, Trace amount of soft pitting edema. No mottling or clubbing. NEUROLOGICAL: Awake and alert. Paraplegia. Speech normal Moves b/l upper extremities. 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 source ? PICC vs new UTI - BC P - abnormal UA with macrohematuria ESR elevated - complete Ertapenem - fu blood clx and UA, reflex C+S - would like to see pt afebrile x 1-2 days prior to clear for dc - also high ESR level is concerning, need to repeat in 1 week. If still high , needs repeat MRI of the back dw RN dw pt dw Mamie Alvarez MD Apr 14, 2016 17:12
[2016-04-14 20:09] VITALS: BP 147/86; PULSE 84; RESP 16; TEMP 100.7; O2SAT 100
[2016-04-14] MEDS: ENOXAPARIN SODIUM 30 MG/0.3 ML SYRINGE SQ SCH (21:26)
[2016-04-15] VITALS: BP 130/78; PULSE 63; RESP 20; TEMP 101.5; O2SAT 96
[2016-04-15] MEDS: ACETAMINOPHEN 325 MG TAB PO PRN ×2 (01:07→16:02)
[2016-04-15 04:00] VITALS: BP 107/63; PULSE 75; RESP 18; TEMP 100.5; O2SAT 94
[2016-04-15 08:42] VITALS: BP 111/66; PULSE 64; RESP 20; TEMP 99.8; O2SAT 96
[2016-04-15] MEDS: SODIUM CHLORIDE 0.9% FLUSH 5 ML FLUSH FLUSH SCH ×2 (09:00→21:26)
[2016-04-15] MEDS: SODIUM HYPOCHLORITE 0.125% 500 ML BTL TOPICAL SCH (09:00)
[2016-04-15] MEDS: PREGABALIN 75 MG CAP PO SCH ×2 (09:51→21:25)
[2016-04-15] MEDS: MORPHINE SULFATE 30 MG CONTROLLED RELEASE TAB PO SCH ×3 (09:51→13:35)
[2016-04-15] MEDS: TOLTERODINE TARTRATE 2 MG CAP LA PO SCH (09:51)
[2016-04-15] MEDS: LACTOBACILLUS ACIDOPHILUS TAB PO SCH ×2 (09:51→21:25)
[2016-04-15] MEDS: BACLOFEN 10 MG TAB PO SCH ×2 (09:51→13:34)
--- NOTE | 2016-04-15 11:44 | HHI.PR ---
Subjective Remarks in no distress. still febrile- Tmax 101.5. Objective Vitals Vital Signs Date Time Temp Pulse Resp B/P Pulse Ox O2 Delivery O2 Flow Rate FiO2 04/15/16 08:42 99.8 64 20 111/66 96 04/15/16 04:00 100.5 75 18 107/63 94 04/15/16 00:00 101.5 63 20 130/78 96 04/14/16 20:09 100.7 84 16 147/86 100 04/14/16 17:00 99.4 71 18 133/83 99 04/14/16 13:12 98.4 73 18 125/71 98 I/O 04/14/16 04/14/16 04/14/16 04/15/16 04/15/16 04/15/16 07:00 15:00 23:00 07:00 15:00 23:00 Output Total 2200 ml 1150 ml 1550 ml Balance -2200 ml -1150 ml -1550 ml Output Urine Total 2200 ml 1150 ml 1550 ml # Bowel Movements 0 Result Diagram: 04/13/16 0600 Imaging Last Impressions Head CT 04/02/16 0000 Signed Impressions: Service Date/Time: Saturday, April 02, 2016 10:51 - CONCLUSION: Normal examination. Jose Dukes MD Renal Ultrasound 03/31/16 0000 Signed Impressions: Service Date/Time: Thursday, March 31, 2016 11:35 - CONCLUSION: Kidneys are normal other than questionable minimal increase echotexture the cortex. Cortical medullary junction is well-maintained with no evidence hydronephrosis. Sam Montiel MD Objective Remarks GENERAL: This is a well-nourished, well-developed patient, in no apparent distress. CARDIOVASCULAR: Regular rate and regular rhythm without murmurs, gallops, or rubs. RESPIRATORY: Clear to auscultation. Breath sounds equal bilaterally. No wheezes , rales, or rhonchi. GASTROINTESTINAL: Abdomen soft, non-tender, nondistended. Normal, active bowel sounds MUSCULOSKELETAL: Extremities without clubbing, cyanosis, or edema. NEURO: Alert & Oriented x4 to person, place, time, situation. Medications and IVs Current Medications Sodium Chloride (NS 1000 ml Inj) 1,000 ml @ 70 mls/hr [id number] IV Last administered on 04/02/16t 23:43; Start 03/30/16 at 18:14; Stop 04/03/16 at 11:07 ; Status DC IV Flush (NS Flush) 2 ml UNSCH PRN FLUSH FLUSH AFTER USING IV ACCESS; Start at 18:15 IV Flush (NS Flush) 2 ml BID FLUSH Last administered on 04/15/16 09:00; Start 03/30/16 at 21:00 Acetaminophen (Tylenol) 650 mg Q4H PRN PO TEMP > 100.4 Last administered on 01:07; Start 03/30/16 at 18:15 Ondansetron HCl (Zofran Inj) 4 mg Q6H PRN IVP NAUSEA OR VOMITING Last administered on 04/04/16 13:06; Start 03/30/16 at 18:15 Prochlorperazine (Compazine Supp) 25 mg Q12H PRN OR NAUSEA OR VOMITING; Start 03/30/16 at 18:15; Stop 04/02/16 at 15:59; Status DC Bisacodyl (Dulcolax Supp) 10 mg DAILY PRN OR CONSTIPATION; Start 03/30/16 at 18:15 Magnesium Hydroxide (Milk Of Magnesia Liq) 30 ml Q12H PRN PO CONSTIPATION; Start 03/30/16 at 18:15 Sennosides (Senokot) 17.2 mg Q12H PRN PO CONSTIPATION; Start 03/30/16 at 18:15 Enoxaparin Sodium (Lovenox Inj) 30 mg Q24H SQ Last administered on 04/14/16 21 :26; Start 03/30/16 at 20:00 Baclofen (Lioresal) 10 mg TID PO Last administered on 04/15/16 09:51; Start 03/31/16 at 09:00 Carisoprodol (Soma) 350 mg Q8HR PRN PO MUSCLE PAIN Last administered on 06:00; Start 03/30/16 at 18:30 Lactobacillus Acidophilus (Lactinex) 1 tab BID PO Last administered on 09:51; Start 03/30/16 at 21:00 Lidocaine HCl (Xylocaine 2% Jelly) 1 applic DAILY PRN TOPICAL PAIN; Start at 18:30 Linezolid (Zyvox) 600 mg BID PO Last administered on 04/03/16 09:15; Start at 21:00; Stop 04/03/16 at 18:55; Status DC Morphine Sulfate (Oramorph Sr) 30 mg TID PO Last administered on 04/15/16 09: 51; Start 03/31/16 at 09:00 Morphine Sulfate (Msir) 15 mg Q4H PRN PO BREAKTHROUGH PAIN Last administered on 04/14/16 22:43; Start 03/30/16 at 18:30 Pregabalin (Lyrica) 200 mg BID PO Last administered on 03/31/16at 10:14; Start 03/30/16 at 21:00; Stop 03/31/16 at 15:35; Status DC Sodium Hypochlorite (Dakin'S 0.125% Soln) 0.125 ml DAILY TOPICAL Last administered on 04/15/16 09:00; Start 03/31/16 at 09:00 Tolterodine Tartrate 2 mg 2 mg DAILY PO Last administered on 04/15/16 09:51; Start 03/31/16 at 09:00 Piperacillin Sod/ Tazobactam Sod (Zosyn 2.25 Gm Premix) 50 ml @ 100 mls/hr Q6H IV Last administered on 04/01/16at 13:27; Start 03/30/16 at 20:00; Stop 04/01 at 14:02; Status DC Citalopram Hydrobromide (CeleXA) 20 mg DAILY PO Last administered on 04/02/16 10:03; Start 03/31/16 at 09:00; Stop 04/02/16 at 15:57; Status DC Pregabalin (Lyrica) 75 mg BID PO Last administered on 04/15/16 09:51; Start 03/31/16 at 21:00 Alteplase, Recombinant 2 mg 2 mg Q2H 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 Last administered on 03/31/16at 18:21; Start 03/31/16 at 15:45 Sodium Chloride (NS 250 ml Inj) 250 ml @ 15 mls/hr ONCE ONCE IV ; Start 04/01 at 06:45; Stop 04/01/16 at 23:24; Status DC Furosemide (Lasix Inj) 20 mg ONCE ONCE IV Last administered on 04/01/16at 13: 28; Start 04/01/16 at 06:45; Stop 04/01/16 at 06:48; Status DC Miscellaneous Medication (ASP Crit: Doc ESBL, MDR A baumannii or P aer) 1 UNSCH X1 PRN XX PHARMACY DOCUMENTATION; Start 04/01/16 at 14:00; Stop 04/02/16 at 13: 59; Status DC Miscellaneous Medication 1 1 UNSCH X1 PRN XX PHARMACY DOCUMENTATION; Start at 14:00; Stop 04/02/16 at 13:59; Status DC Ertapenem/Sodium Chloride (INVanz INJ/NS Inj) 100 ml @ 200 mls/hr Q24H IV Last administered on 04/01/16at 15:50; Start 04/01/16 at 16:00; Stop 04/02/16 at 08:39; Status DC Sodium Polystyrene Sulfonate 15 gm 15 gm ONCE ONCE PO ; Start 04/01/16 at 21: 30; Stop 04/01/16 at 21:30; Status DC Ertapenem/Sodium Chloride (INVanz INJ/NS Inj) 100 ml @ 200 mls/hr Q24H IV Last administered on 04/14/16 14:39; Start 04/02/16 at 16:00 Diphenhydramine HCl (Benadryl Inj) 25 mg ONCE ONCE IV PUSH Last administered on 04/02/16 12:53; Start 04/02/16 at 12:30; Stop 04/02/16 at 12:36; Status DC Diazepam (Valium) 1 mg Q12HR PO Last administered on 04/03/16 09:15; Start 04/02 at 21:00; Stop 04/03/16 at 20:59; Status DC Polyethylene Glycol/ Electrolytes (Colyte Liq) 4,000 ml ONCE ONCE PO ; Start at 12:00; Stop 04/03/16 at 14:13; Status DC Bisacodyl (Dulcolax Ec) 10 mg ONCE ONCE PO ; Start 04/03/16 at 12:00; Stop at 12:01; Status DC Polyethylene Glycol/ Electrolytes 4000 ml 4,000 ml ONCE ONCE PO ; Start at 17:00; Stop 04/04/16 at 17:01; Status DC Ceftaroline Fosamil/Sodium Chloride (Teflaro Inj/NS Inj) 100 ml @ 100 mls/hr Q12H IV Last administered on 04/06/16 22:59; Start 04/03/16 at 20:00; Stop at 20:45; Status DC Baclofen (Lioresal) 10 mg ONCE ONCE PO Last administered on 04/03/16 22:07; Start 04/03/16 at 19:45; Stop 04/03/16 at 19:46; Status DC Potassium Chloride 60 meq 60 meq ONCE ONCE PO Last administered on 04/04/16 06 :45; Start 04/04/16 at 06:45; Stop 04/04/16 at 06:46; Status DC Potassium Chloride (KCl 20 Meq Premix Inj) 100 ml @ 50 mls/hr BOLUS ONCE IV Last administered on 04/04/16 09:28; Start 04/04/16 at 09:00; Stop 04/04/16 at 10: 59; Status DC Furosemide (Lasix Inj) 10 mg ONCE ONCE IV ; Start 04/05/16 at 11:00; Stop at 11:11; Status DC Ketamine HCl 500 mg 500 mg STK-MED ONCE .ROUTE ; Start 04/05/16 at 13:46; Stop at 13:47; Status DC Potassium Chloride (KCl 20 Meq Premix Inj) 100 ml @ 50 mls/hr BOLUS ONCE IV Last administered on 04/05/16 14:00; Start 04/05/16 at 14:00; Stop 04/05/16 at 15: 59; Status DC Propofol (Diprivan 200 Mg/20 ml Inj) 160 mg STK-MED ONCE IV ; Start 04/05/16 at 11:47; Stop 04/05/16 at 15:52; Status DC Potassium Chloride (KCl) 40 meq ONCE ONCE PO Last administered on 04/06/16 13: 45; Start 04/06/16 at 13:45; Stop 04/06/16 at 13:51; Status DC Midazolam HCl 2 mg 2 mg STK-MED ONCE IV Last administered on 04/05/16 11:22; Start 04/05/16 at 11:22; Stop 04/06/16 at 16:01; Status DC Ceftaroline Fosamil 600 mg/ Sodium Chloride 100 ml @ 100 mls/hr Q12H IV Last administered on 04/10/16 21:40; Start 04/08/16 at 08:00; Stop 04/10/16 at 22:00; Status DC Magnesium Sulfate/ Dextrose (Magnesium Sulfate 1 Gm Premix) 100 ml @ 100 mls/ hr Q1H IV Last administered on 04/12/16 22:26; Start 04/12/16 at 20:30; Stop 04/12/16 at 22:29; Status DC Potassium Chloride (KCl) 40 meq NOW ONCE PO Last administered on 04/12/16 20: 52; Start 04/12/16 at 20:30; Stop 04/12/16 at 20:31; Status DC A/P Assessment and Plan A/P Multiple wounds infection on buttocks/ sacral area present on admission. 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 Patient received Teflaro, currently on ertapenem for 14 days per ID recommendation Chronic back wound with wound VAC: spot checker consult to continue wound VAC care and multiple pressure wounds. wound care following, continue wound vac change -- . Acute metabolic encephalopathy, Patient with encephalopathy and orofacial dyskinesis and choreiform movement of BL UE poss 2/2 side effects of meds, mild form of serotonin syndrom ( compazine , citalopram -SSRIs and Linezolid - MAO inhibitor. DC citalopram, he is not taking compazine, Received diphenhydramine 25 IV once. evaluated by neurology. Acute kidney injury: resolved Consulted nephrology who has signed off. Emphasized importance of compliance with self cath he is refusing feliciano. Acute on chronic anemia. Iron deficiency anemia/anemia of chronic disease. Noted with drop in H/H 04/01/16. Transfused 2PRBCs. Monitor H/H and transfuse as indicated. Resumed Lovenox for DVT prophylaxis LUQ Abdominal pain and vomiting/nausea: Improving. Unclear etiology. Lipase within normal limits. Consulteded gastroenterology. Supportive care with IVF and antiemetics. 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 Continue Lyrica, topical lidocaine, Soma as needed, baclofen scheduled, morphine ER scheduled, morphine IR as needed. recurrent fever continue ertapenem-PICC line was discontinued- follow the blood cultures- ID following. DVT prophylaxis: SCDs Discharge Planning not ready for discharge due to recurrent fever. Jena Segura MD Apr 15, 2016 11:44
[2016-04-15 12:45] VITALS: BP 134/63; PULSE 86; RESP 20; TEMP 99.5; O2SAT 94
[2016-04-15] MEDS: ERTAPENEM INJ 1,000 MG in SODIUM CHLORIDE 0.9% INJ 100 ML IV SCH (16:00)
[2016-04-15] MEDS: MORPHINE SULFATE 15 MG TAB PO PRN ×2 (16:01→21:25)
[2016-04-15 16:15] VITALS: BP 134/80; PULSE 84; RESP 20; TEMP 100.8; O2SAT 99
[2016-04-15] MEDS: ENOXAPARIN SODIUM 30 MG/0.3 ML SYRINGE SQ SCH (21:25)
[2016-04-15 21:30] VITALS: BP 123/71; PULSE 76; RESP 16; TEMP 99; O2SAT 97
[2016-04-16 00:40] VITALS: BP 123/80; PULSE 75; RESP 17; TEMP 99; O2SAT 99
[2016-04-16] MEDS: MORPHINE SULFATE 15 MG TAB PO PRN ×6 (00:55→21:38)
[2016-04-16] MEDS: ACETAMINOPHEN 325 MG TAB PO PRN ×2 (00:56→23:59)
[2016-04-16 06:00] VITALS: BP 116/62; PULSE 68; RESP 16; TEMP 100.5; O2SAT 99
[2016-04-16] MEDS: PREGABALIN 75 MG CAP PO SCH ×2 (08:04→21:20)
[2016-04-16] MEDS: TOLTERODINE TARTRATE 2 MG CAP LA PO SCH (08:04)
[2016-04-16] MEDS: LACTOBACILLUS ACIDOPHILUS TAB PO SCH ×2 (08:04→21:20)
[2016-04-16] MEDS: MORPHINE SULFATE 30 MG CONTROLLED RELEASE TAB PO SCH ×3 (08:05→17:57)
[2016-04-16] MEDS: BACLOFEN 10 MG TAB PO SCH ×3 (08:06→17:57)
[2016-04-16 08:49] VITALS: BP 111/64; PULSE 67; RESP 20; TEMP 98.7; O2SAT 96
[2016-04-16] MEDS: SODIUM HYPOCHLORITE 0.125% 500 ML BTL TOPICAL SCH (09:00)
[2016-04-16] MEDS: SODIUM CHLORIDE 0.9% FLUSH 5 ML FLUSH FLUSH SCH ×2 (09:00→21:21)
--- NOTE | 2016-04-16 12:26 | HHI.PR ---
Subjective Remarks overall doing fine. had a low grade fever earlier this morning. denies pain. d/w the RN and no other cute issues over night. Objective Vitals Vital Signs Date Time Temp Pulse Resp B/P Pulse Ox O2 Delivery O2 Flow Rate FiO2 04/16/16 08:49 98.7 67 20 111/64 96 04/16/16 06:00 100.5 68 16 116/62 99 04/16/16 00:40 99.0 75 17 123/80 99 04/15/16 21:30 99.0 76 16 123/71 97 04/15/16 16:15 100.8 84 20 134/80 99 04/15/16 12:45 99.5 86 20 134/63 94 I/O 04/15/16 04/15/16 04/15/16 04/16/16 04/16/16 04/16/16 07:00 15:00 23:00 07:00 15:00 23:00 Intake Total 900 ml 800 ml Output Total 1550 ml 350 ml 600 ml 1000 ml Balance -1550 ml -350 ml 300 ml -200 ml Intake Oral 900 ml 800 ml Output Urine Total 1550 ml 350 ml 600 ml 1000 ml # Bowel Movements 0 0 Result Diagram: 04/13/16 0600 Imaging Last Impressions Head CT 04/02/16 0000 Signed Impressions: Service Date/Time: Saturday, April 02, 2016 10:51 - CONCLUSION: Normal examination. Jose Dukes MD Renal Ultrasound 03/31/16 0000 Signed Impressions: Service Date/Time: Thursday, March 31, 2016 11:35 - CONCLUSION: Kidneys are normal other than questionable minimal increase echotexture the cortex. Cortical medullary junction is well-maintained with no evidence hydronephrosis. Sam Montiel MD Objective Remarks GENERAL: This is a well-nourished, well-developed patient, in no apparent distress. CARDIOVASCULAR: Regular rate and regular rhythm without murmurs, gallops, or rubs. RESPIRATORY: Clear to auscultation. Breath sounds equal bilaterally. No wheezes , rales, or rhonchi. GASTROINTESTINAL: Abdomen soft, non-tender, nondistended. Normal, active bowel sounds MUSCULOSKELETAL: Extremities without clubbing, cyanosis, or edema. NEURO: Alert & Oriented x4 to person, place, time, situation. Medications and IVs Current Medications Sodium Chloride (NS 1000 ml Inj) 1,000 ml @ 70 mls/hr [id number] IV Last administered on 04/02/16 23:43; Start 03/30/16 at 18:14; Stop 04/03/16 at 11:07 ; Status DC IV Flush (NS Flush) 2 ml UNSCH PRN FLUSH FLUSH AFTER USING IV ACCESS; Start at 18:15 IV Flush (NS Flush) 2 ml BID FLUSH Last administered on 04/15/16 21:26; Start 03/30/16 at 21:00 Acetaminophen (Tylenol) 650 mg Q4H PRN PO TEMP > 100.4 Last administered on 00:56; Start 03/30/16 at 18:15 Ondansetron HCl (Zofran Inj) 4 mg Q6H PRN IVP NAUSEA OR VOMITING Last administered on 04/04/16 13:06; Start 03/30/16 at 18:15 Prochlorperazine (Compazine Supp) 25 mg Q12H PRN MS NAUSEA OR VOMITING; Start 03/30/16 at 18:15; Stop 04/02/16 at 15:59; Status DC Bisacodyl (Dulcolax Supp) 10 mg DAILY PRN MS CONSTIPATION; Start 03/30/16 at 18:15 Magnesium Hydroxide (Milk Of Magnesia Liq) 30 ml Q12H PRN PO CONSTIPATION; Start 03/30/16 at 18:15 Sennosides (Senokot) 17.2 mg Q12H PRN PO CONSTIPATION; Start 03/30/16 at 18:15 Enoxaparin Sodium (Lovenox Inj) 30 mg Q24H SQ Last administered on 04/15/16 21 :25; Start 03/30/16 at 20:00 Baclofen (Lioresal) 10 mg TID PO Last administered on 04/16/16 08:06; Start 03/31/16 at 09:00 Carisoprodol (Soma) 350 mg Q8HR PRN PO MUSCLE PAIN Last administered on 06:00; Start 03/30/16 at 18:30 Lactobacillus Acidophilus (Lactinex) 1 tab BID PO Last administered on 08:04; Start 03/30/16 at 21:00 Lidocaine HCl (Xylocaine 2% Jelly) 1 applic DAILY PRN TOPICAL PAIN; Start at 18:30 Linezolid (Zyvox) 600 mg BID PO Last administered on 04/03/16 09:15; Start at 21:00; Stop 04/03/16 at 18:55; Status DC Morphine Sulfate (Oramorph Sr) 30 mg TID PO Last administered on 04/16/16 08: 05; Start 03/31/16 at 09:00 Morphine Sulfate (Msir) 15 mg Q4H PRN PO BREAKTHROUGH PAIN Last administered on 04/16/16 08:06; Start 03/30/16 at 18:30 Pregabalin (Lyrica) 200 mg BID PO Last administered on 03/31/16at 10:14; Start 03/30/16 at 21:00; Stop 03/31/16 at 15:35; Status DC Sodium Hypochlorite (Dakin'S 0.125% Soln) 0.125 ml DAILY TOPICAL Last administered on 04/16/16 09:00; Start 03/31/16 at 09:00 Tolterodine Tartrate 2 mg 2 mg DAILY PO Last administered on 04/16/16 08:04; Start 03/31/16 at 09:00 Piperacillin Sod/ Tazobactam Sod (Zosyn 2.25 Gm Premix) 50 ml @ 100 mls/hr Q6H IV Last administered on 04/01/16at 13:27; Start 03/30/16 at 20:00; Stop 04/01 at 14:02; Status DC Citalopram Hydrobromide (CeleXA) 20 mg DAILY PO Last administered on 04/02/16 10:03; Start 03/31/16 at 09:00; Stop 04/02/16 at 15:57; Status DC Pregabalin (Lyrica) 75 mg BID PO Last administered on 04/16/16 08:04; Start 03/31/16 at 21:00 Alteplase, Recombinant 2 mg 2 mg Q2H PRN 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 Last administered on 03/31/16at 18:21; Start 03/31/16 at 15:45 Sodium Chloride (NS 250 ml Inj) 250 ml @ 15 mls/hr ONCE ONCE IV ; Start 04/01 at 06:45; Stop 04/01/16 at 23:24; Status DC Furosemide (Lasix Inj) 20 mg ONCE ONCE IV Last administered on 04/01/16at 13: 28; Start 04/01/16 at 06:45; Stop 04/01/16 at 06:48; Status DC Miscellaneous Medication (ASP Crit: Doc ESBL, MDR A baumannii or P aer) 1 UNSCH X1 PRN XX PHARMACY DOCUMENTATION; Start 04/01/16 at 14:00; Stop 04/02/16 at 13: 59; Status DC Miscellaneous Medication 1 1 UNSCH X1 PRN XX PHARMACY DOCUMENTATION; Start at 14:00; Stop 04/02/16 at 13:59; Status DC Ertapenem/Sodium Chloride (INVanz INJ/NS Inj) 100 ml @ 200 mls/hr Q24H IV Last administered on 04/01/16at 15:50; Start 04/01/16 at 16:00; Stop 04/02/16 at 08:39; Status DC Sodium Polystyrene Sulfonate 15 gm 15 gm ONCE ONCE PO ; Start 04/01/16 at 21: 30; Stop 04/01/16 at 21:30; Status DC Ertapenem/Sodium Chloride (INVanz INJ/NS Inj) 100 ml @ 200 mls/hr Q24H IV Last administered on 04/14/16 14:39; Start 04/02/16 at 16:00 Diphenhydramine HCl (Benadryl Inj) 25 mg ONCE ONCE IV PUSH Last administered on 04/02/16 12:53; Start 04/02/16 at 12:30; Stop 04/02/16 at 12:36; Status DC Diazepam (Valium) 1 mg Q12HR PO Last administered on 04/03/16 09:15; Start 04/02 at 21:00; Stop 04/03/16 at 20:59; Status DC Polyethylene Glycol/ Electrolytes (Colyte Liq) 4,000 ml ONCE ONCE PO ; Start at 12:00; Stop 04/03/16 at 14:13; Status DC Bisacodyl (Dulcolax Ec) 10 mg ONCE ONCE PO ; Start 04/03/16 at 12:00; Stop at 12:01; Status DC Polyethylene Glycol/ Electrolytes 4000 ml 4,000 ml ONCE ONCE PO ; Start at 17:00; Stop 04/04/16 at 17:01; Status DC Ceftaroline Fosamil/Sodium Chloride (Teflaro Inj/NS Inj) 100 ml @ 100 mls/hr Q12H IV Last administered on 04/06/16 22:59; Start 04/03/16 at 20:00; Stop at 20:45; Status DC Baclofen (Lioresal) 10 mg ONCE ONCE PO Last administered on 04/03/16 22:07; Start 04/03/16 at 19:45; Stop 04/03/16 at 19:46; Status DC Potassium Chloride 60 meq 60 meq ONCE ONCE PO Last administered on 04/04/16 06 :45; Start 04/04/16 at 06:45; Stop 04/04/16 at 06:46; Status DC Potassium Chloride (KCl 20 Meq Premix Inj) 100 ml @ 50 mls/hr BOLUS ONCE IV Last administered on 04/04/16 09:28; Start 04/04/16 at 09:00; Stop 04/04/16 at 10: 59; Status DC Furosemide (Lasix Inj) 10 mg ONCE ONCE IV ; Start 04/05/16 at 11:00; Stop at 11:11; Status DC Ketamine HCl 500 mg 500 mg STK-MED ONCE .ROUTE ; Start 04/05/16 at 13:46; Stop at 13:47; Status DC Potassium Chloride (KCl 20 Meq Premix Inj) 100 ml @ 50 mls/hr BOLUS ONCE IV Last administered on 04/05/16 14:00; Start 04/05/16 at 14:00; Stop 04/05/16 at 15: 59; Status DC Propofol (Diprivan 200 Mg/20 ml Inj) 160 mg STK-MED ONCE IV ; Start 04/05/16 at 11:47; Stop 04/05/16 at 15:52; Status DC Potassium Chloride (KCl) 40 meq ONCE ONCE PO Last administered on 04/06/16 13: 45; Start 04/06/16 at 13:45; Stop 04/06/16 at 13:51; Status DC Midazolam HCl 2 mg 2 mg STK-MED ONCE IV Last administered on 04/05/16 11:22; Start 04/05/16 at 11:22; Stop 04/06/16 at 16:01; Status DC Ceftaroline Fosamil 600 mg/ Sodium Chloride 100 ml @ 100 mls/hr Q12H IV Last administered on 04/10/16 21:40; Start 04/08/16 at 08:00; Stop 04/10/16 at 22:00; Status DC Magnesium Sulfate/ Dextrose (Magnesium Sulfate 1 Gm Premix) 100 ml @ 100 mls/ hr Q1H IV Last administered on 04/12/16 22:26; Start 04/12/16 at 20:30; Stop 04/12/16 at 22:29; Status DC Potassium Chloride (KCl) 40 meq NOW ONCE PO Last administered on 04/12/16 20: 52; Start 04/12/16 at 20:30; Stop 04/12/16 at 20:31; Status DC A/P Assessment and Plan A/P Multiple wounds infection on buttocks/ sacral area present on admission. 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 Patient received Teflaro, currently on ertapenem for 14 days per ID recommendation Chronic back wound with wound VAC: staff nurse anesthetist consult to continue wound VAC care and multiple pressure wounds. wound care following, continue wound vac change M-W- . Acute metabolic encephalopathy-resloved Patient initially with encephalopathy and orofacial dyskinesis and choreiform movement of BL UE poss 2/2 side effects of meds, mild form of serotonin syndrom ( compazine, citalopram -SSRIs and Linezolid - MAO inhibitor. evaluated by neurology. Acute kidney injury: resolved Consulted nephrology who has signed off. Emphasized importance of compliance with self cath he is refusing feliciano. Acute on chronic anemia. Iron deficiency anemia/anemia of chronic disease. Noted with drop in H/H 04/01/16. Transfused 2PRBCs. Monitor H/H and transfuse as indicated. Resumed Lovenox for DVT prophylaxis- CBC today pending. LUQ Abdominal pain and vomiting/nausea: Improving. Unclear etiology. Lipase within normal limits. Consulted gastroenterology. Supportive care with IVF and antiemetics. 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 Continue Lyrica, topical lidocaine, Soma as needed, baclofen scheduled, morphine ER scheduled, morphine IR as needed. recurrent fever continue ertapenem-PICC line was discontinued- blood cultures from 04/14 and negative so far- ID following. DVT prophylaxis: SCDs Discharge Planning not ready for discharge due to recurrent fever. Jena Segura MD Apr 16, 2016 12:26
[2016-04-16 12:51] VITALS: BP 115/68; PULSE 66; RESP 20; TEMP 98.6; O2SAT 97
[2016-04-16 14:34] LABS: AUTOMATED NEUTROPHIL # 4.3 TH/MM3 (1.8-7.7); BASOPHIL % 0.4 % (0.0-2.0); EOSINOPHIL # 0.1 TH/MM3 (0-0.4); EOSINOPHIL % 1.1 % (0.0-4.0); HEMATOCRIT 29.1 % (39.0-51.0); LYMPH % 12.7 % (9.0-44.0); LYMPHOCYTE # 0.7 TH/MM3 (1.0-4.8); MEAN CELL VOLUME 78.2 FL (80.0-100.0); MEAN CORPUSCULAR HEMOGLOBIN 24.9 PG (27.0-34.0); MEAN CORPUSCULAR HGB CONC 31.9 % (32.0-36.0); MONO % 5.6 % (0.0-8.0); NEUT % 80.2 % (16.0-70.0); PLATELET COUNT 200 TH/MM3 (150-450); RED BLOOD COUNT 3.72 MIL/MM3 (4.50-5.90); RED CELL DISTRIBUTION WIDTH 18.5 % (11.6-17.2); WHITE BLOOD COUNT 5.3 TH/MM3 (4.0-11.0)
[2016-04-16 14:41] LABS: HEMO FLAGS AUTO DIFF
[2016-04-16 15:10] LABS: PLATELET ESTIMATE SMEAR NORMAL (NORMAL); PLATELET MORPHOLOGY NORMAL (NORMAL); SCAN/DIFF AUTO DIFF CONFIRMED
[2016-04-16] MEDS: ERTAPENEM INJ 1,000 MG in SODIUM CHLORIDE 0.9% INJ 100 ML IV SCH (16:00)
[2016-04-16 17:22] VITALS: BP 125/78; PULSE 83; RESP 20; TEMP 98.2; O2SAT 98
[2016-04-16 20:00] VITALS: BP 129/74; PULSE 90; RESP 16; TEMP 99.7; O2SAT 94
[2016-04-16] MEDS: ENOXAPARIN SODIUM 30 MG/0.3 ML SYRINGE SQ SCH (21:20)
[2016-04-17] VITALS: BP 129/67; PULSE 88; RESP 16; TEMP 101.6; O2SAT 95
[2016-04-17 05:00] VITALS: BP 111/59; PULSE 66; RESP 17; TEMP 98.6; O2SAT 96
[2016-04-17 08:59] VITALS: BP 114/70; PULSE 93; RESP 18; TEMP 98; O2SAT 98
[2016-04-17] MEDS: SODIUM CHLORIDE 0.9% FLUSH 5 ML FLUSH FLUSH SCH ×2 (09:00→21:00)
[2016-04-17] MEDS: SODIUM HYPOCHLORITE 0.125% 500 ML BTL TOPICAL SCH (09:00)
[2016-04-17] MEDS: LACTOBACILLUS ACIDOPHILUS TAB PO SCH ×2 (10:03→21:42)
[2016-04-17] MEDS: TOLTERODINE TARTRATE 2 MG CAP LA PO SCH (10:04)
[2016-04-17] MEDS: PREGABALIN 75 MG CAP PO SCH ×2 (10:04→21:42)
[2016-04-17] MEDS: MORPHINE SULFATE 30 MG CONTROLLED RELEASE TAB PO SCH ×3 (10:04→19:34)
[2016-04-17] MEDS: BACLOFEN 10 MG TAB PO SCH ×3 (10:04→19:33)
[2016-04-17] MEDS: MORPHINE SULFATE 15 MG TAB PO PRN ×2 (10:11→19:33)
--- NOTE | 2016-04-17 11:41 | HHI.PR ---
Subjective Remarks in no distress. recurrent fever; T max 101.6. otherwise no new complaints. Objective Vitals Vital Signs Date Time Temp Pulse Resp B/P Pulse Ox O2 Delivery O2 Flow Rate FiO2 04/17/16 08:59 98.0 93 18 114/70 98 04/17/16 05:00 98.6 66 17 111/59 96 04/17/16 00:00 101.6 88 16 129/67 95 04/16/16 20:00 99.7 90 16 129/74 94 04/16/16 17:22 98.2 83 20 125/78 98 04/16/16 12:51 98.6 66 20 115/68 97 I/O 04/16/16 04/16/16 04/16/16 04/17/16 04/17/16 04/17/16 07:00 15:00 23:00 07:00 15:00 23:00 Intake Total 800 ml 1500 ml 800 ml Output Total 1000 ml 775 ml 800 ml 1600 ml Balance -200 ml -775 ml 700 ml -800 ml Intake Oral 800 ml 1500 ml 800 ml Output Urine Total 1000 ml 775 ml 800 ml 1600 ml # Bowel Movements 0 0 0 Result Diagram: 04/16/16 1416 04/13/16 0600 Imaging Last Impressions Head CT 04/02/16 0000 Signed Impressions: Service Date/Time: Saturday, April 02, 2016 10:51 - CONCLUSION: Normal examination. Jose Dukes MD Renal Ultrasound 03/31/16 0000 Signed Impressions: Service Date/Time: Thursday, March 31, 2016 11:35 - CONCLUSION: Kidneys are normal other than questionable minimal increase echotexture the cortex. Cortical medullary junction is well-maintained with no evidence hydronephrosis. Sam Montiel MD Objective Remarks GENERAL: This is a well-nourished, well-developed patient, in no apparent distress. CARDIOVASCULAR: Regular rate and regular rhythm without murmurs, gallops, or rubs. RESPIRATORY: Clear to auscultation. Breath sounds equal bilaterally. No wheezes , rales, or rhonchi. GASTROINTESTINAL: Abdomen soft, non-tender, nondistended. Normal, active bowel sounds MUSCULOSKELETAL: Extremities without clubbing, cyanosis, or edema. NEURO: Alert & Oriented x4 to person, place, time, situation. Medications and IVs Current Medications Sodium Chloride (NS 1000 ml Inj) 1,000 ml @ 70 mls/hr [id number] IV Last administered on 04/02/16 23:43; Start 03/30/16 at 18:14; Stop 04/03/16 at 11:07 ; Status DC IV Flush (NS Flush) 2 ml UNSCH PRN FLUSH FLUSH AFTER USING IV ACCESS; Start at 18:15 IV Flush (NS Flush) 2 ml BID FLUSH Last administered on 04/15/16 21:26; Start 03/30/16 at 21:00 Acetaminophen (Tylenol) 650 mg Q4H PRN PO TEMP > 100.4 Last administered on 23:59; Start 03/30/16 at 18:15 Ondansetron HCl (Zofran Inj) 4 mg Q6H PRN IVP NAUSEA OR VOMITING Last administered on 04/04/16 13:06; Start 03/30/16 at 18:15 Prochlorperazine (Compazine Supp) 25 mg Q12H PRN [place] NAUSEA OR VOMITING; Start 03/30/16 at 18:15; Stop 04/02/16 at 15:59; Status DC Bisacodyl (Dulcolax Supp) 10 mg DAILY PRN [place] CONSTIPATION; Start 03/30/16 at 18:15 Magnesium Hydroxide (Milk Of Magnesia Liq) 30 ml Q12H PRN PO CONSTIPATION; Start 03/30/16 at 18:15 Sennosides (Senokot) 17.2 mg Q12H PRN PO CONSTIPATION; Start 03/30/16 at 18:15 Enoxaparin Sodium (Lovenox Inj) 30 mg Q24H SQ Last administered on 04/16/16 21 :20; Start 03/30/16 at 20:00 Baclofen (Lioresal) 10 mg TID PO Last administered on 04/17/16 10:04; Start 03/31/16 at 09:00 Carisoprodol (Soma) 350 mg Q8HR PRN PO MUSCLE PAIN Last administered on 06:00; Start 03/30/16 at 18:30 Lactobacillus Acidophilus (Lactinex) 1 tab BID PO Last administered on 10:03; Start 03/30/16 at 21:00 Lidocaine HCl (Xylocaine 2% Jelly) 1 applic DAILY PRN TOPICAL PAIN; Start at 18:30 Linezolid (Zyvox) 600 mg BID PO Last administered on 04/03/16 09:15; Start at 21:00; Stop 04/03/16 at 18:55; Status DC Morphine Sulfate (Oramorph Sr) 30 mg TID PO Last administered on 04/17/16 10: 04; Start 03/31/16 at 09:00 Morphine Sulfate (Msir) 15 mg Q4H PRN PO BREAKTHROUGH PAIN Last administered on 04/17/16 10:11; Start 03/30/16 at 18:30 Pregabalin (Lyrica) 200 mg BID PO Last administered on 03/31/16at 10:14; Start 03/30/16 at 21:00; Stop 03/31/16 at 15:35; Status DC Sodium Hypochlorite (Dakin'S 0.125% Soln) 0.125 ml DAILY TOPICAL Last administered on 04/17/16 09:00; Start 03/31/16 at 09:00 Tolterodine Tartrate 2 mg 2 mg DAILY PO Last administered on 04/17/16 10:04; Start 03/31/16 at 09:00 Piperacillin Sod/ Tazobactam Sod (Zosyn 2.25 Gm Premix) 50 ml @ 100 mls/hr Q6H IV Last administered on 04/01/16at 13:27; Start 03/30/16 at 20:00; Stop 04/01 at 14:02; Status DC Citalopram Hydrobromide (CeleXA) 20 mg DAILY PO Last administered on 04/02/16 10:03; Start 03/31/16 at 09:00; Stop 04/02/16 at 15:57; Status DC Pregabalin (Lyrica) 75 mg BID PO Last administered on 04/17/16 10:04; Start 03/31/16 at 21:00 Alteplase, Recombinant 2 mg 2 mg Q2H PRN INTRACATH picc line staker Last administered on 03/31/16at 18:21; Start 03/31/16 at 15:45 Sodium Chloride (NS 250 ml Inj) 250 ml @ 15 mls/hr ONCE ONCE IV ; Start 04/01 at 06:45; Stop 04/01/16 at 23:24; Status DC Furosemide (Lasix Inj) 20 mg ONCE ONCE IV Last administered on 04/01/16at 13: 28; Start 04/01/16 at 06:45; Stop 04/01/16 at 06:48; Status DC Miscellaneous Medication (ASP Crit: Doc ESBL, MDR A baumannii or P aer) 1 UNSCH X1 PRN XX PHARMACY DOCUMENTATION; Start 04/01/16 at 14:00; Stop 04/02/16 at 13: 59; Status DC Miscellaneous Medication 1 1 UNSCH X1 PRN XX PHARMACY DOCUMENTATION; Start at 14:00; Stop 04/02/16 at 13:59; Status DC Ertapenem/Sodium Chloride (INVanz INJ/NS Inj) 100 ml @ 200 mls/hr Q24H IV Last administered on 04/01/16at 15:50; Start 04/01/16 at 16:00; Stop 04/02/16 at 08:39; Status DC Sodium Polystyrene Sulfonate 15 gm 15 gm ONCE ONCE PO ; Start 04/01/16 at 21: 30; Stop 04/01/16 at 21:30; Status DC Ertapenem/Sodium Chloride (INVanz INJ/NS Inj) 100 ml @ 200 mls/hr Q24H IV Last administered on 04/14/16 14:39; Start 04/02/16 at 16:00 Diphenhydramine HCl (Benadryl Inj) 25 mg ONCE ONCE IV PUSH Last administered on 04/02/16 12:53; Start 04/02/16 at 12:30; Stop 04/02/16 at 12:36; Status DC Diazepam (Valium) 1 mg Q12HR PO Last administered on 04/03/16 09:15; Start 04/02 at 21:00; Stop 04/03/16 at 20:59; Status DC Polyethylene Glycol/ Electrolytes (Colyte Liq) 4,000 ml ONCE ONCE PO ; Start at 12:00; Stop 04/03/16 at 14:13; Status DC Bisacodyl (Dulcolax Ec) 10 mg ONCE ONCE PO ; Start 04/03/16 at 12:00; Stop at 12:01; Status DC Polyethylene Glycol/ Electrolytes 4000 ml 4,000 ml ONCE ONCE PO ; Start at 17:00; Stop 04/04/16 at 17:01; Status DC Ceftaroline Fosamil/Sodium Chloride (Teflaro Inj/NS Inj) 100 ml @ 100 mls/hr Q12H IV Last administered on 04/06/16 22:59; Start 04/03/16 at 20:00; Stop at 20:45; Status DC Baclofen (Lioresal) 10 mg ONCE ONCE PO Last administered on 04/03/16 22:07; Start 04/03/16 at 19:45; Stop 04/03/16 at 19:46; Status DC Potassium Chloride 60 meq 60 meq ONCE ONCE PO Last administered on 04/04/16 06 :45; Start 04/04/16 at 06:45; Stop 04/04/16 at 06:46; Status DC Potassium Chloride (KCl 20 Meq Premix Inj) 100 ml @ 50 mls/hr BOLUS ONCE IV Last administered on 04/04/16 09:28; Start 04/04/16 at 09:00; Stop 04/04/16 at 10: 59; Status DC Furosemide (Lasix Inj) 10 mg ONCE ONCE IV ; Start 04/05/16 at 11:00; Stop at 11:11; Status DC Ketamine HCl 500 mg 500 mg STK-MED ONCE .ROUTE ; Start 04/05/16 at 13:46; Stop at 13:47; Status DC Potassium Chloride (KCl 20 Meq Premix Inj) 100 ml @ 50 mls/hr BOLUS ONCE IV Last administered on 04/05/16 14:00; Start 04/05/16 at 14:00; Stop 04/05/16 at 15: 59; Status DC Propofol (Diprivan 200 Mg/20 ml Inj) 160 mg STK-MED ONCE IV ; Start 04/05/16 at 11:47; Stop 04/05/16 at 15:52; Status DC Potassium Chloride (KCl) 40 meq ONCE ONCE PO Last administered on 04/06/16 13: 45; Start 04/06/16 at 13:45; Stop 04/06/16 at 13:51; Status DC Midazolam HCl 2 mg 2 mg STK-MED ONCE IV Last administered on 04/05/16 11:22; Start 04/05/16 at 11:22; Stop 04/06/16 at 16:01; Status DC Ceftaroline Fosamil 600 mg/ Sodium Chloride 100 ml @ 100 mls/hr Q12H IV Last administered on 04/10/16 21:40; Start 04/08/16 at 08:00; Stop 04/10/16 at 22:00; Status DC Magnesium Sulfate/ Dextrose (Magnesium Sulfate 1 Gm Premix) 100 ml @ 100 mls/ hr Q1H IV Last administered on 04/12/16 22:26; Start 04/12/16 at 20:30; Stop 04/12/16 at 22:29; Status DC Potassium Chloride (KCl) 40 meq NOW ONCE PO Last administered on 04/12/16 20: 52; Start 04/12/16 at 20:30; Stop 04/12/16 at 20:31; Status DC A/P Assessment and Plan A/P Multiple wounds infection on buttocks/ sacral area present on admission. 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 wound care following, continue wound vac change -- . Acute metabolic encephalopathy-resolved. Patient initially with encephalopathy and orofacial dyskinesis and choreiform movement of BL UE poss 2/2 side effects of meds, mild form of serotonin syndrom ( compazine, citalopram -SSRIs and Linezolid - MAO inhibitor. evaluated by neurology. Acute kidney injury: resolved Consulted nephrology who has signed off. Emphasized importance of compliance with self cath he is refusing feliciano. chronic anemia. Iron deficiency anemia/anemia of chronic disease. s/p PRBC transfusion. H/H stable.will monitor periodically. LUQ Abdominal pain and vomiting/nausea: Improving. Unclear etiology. Lipase within normal limits. Consulted gastroenterology. Supportive care with IVF and antiemetics. 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 DVT prophylaxis: lovenox. Discharge Planning not ready for discharge due to recurrent fever. Jena Segura MD Apr 17, 2016 11:41
[2016-04-17 12:05] VITALS: BP 107/68; PULSE 74; RESP 20; TEMP 99.2; O2SAT 95
--- NOTE | 2016-04-17 14:33 | HHI.IDPN ---
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 Vital Signs Date Time Temp Pulse Resp B/P Pulse Ox O2 Delivery O2 Flow Rate FiO2 04/17/16 12:05 99.2 74 20 107/68 95 04/17/16 08:59 98.0 93 18 114/70 98 04/17/16 05:00 98.6 66 17 111/59 96 04/17/16 00:00 101.6 88 16 129/67 95 04/16/16 20:00 99.7 90 16 129/74 94 04/16/16 17:22 98.2 83 20 125/78 98 04/16/16 04/16/16 04/17/16 15:00 23:00 07:00 Intake Total 1500 ml 800 ml Output Total 775 ml 800 ml 1600 ml Balance -775 ml 700 ml -800 ml Intake Oral 1500 ml 800 ml Output Urine Total 775 ml 800 ml 1600 ml # Bowel Movements 0 0 . Laboratory Tests Test 04/16/16 14:16 White Blood Count 5.3 TH/MM3 Red Blood Count 3.72 MIL/MM3 Hemoglobin 9.3 GM/DL Hematocrit 29.1 % Mean Corpuscular Volume 78.2 FL Mean Corpuscular Hemoglobin 24.9 PG Mean Corpuscular Hemoglobin 31.9 % Concent Red Cell Distribution Width 18.5 % Platelet Count 200 TH/MM3 Mean Platelet Volume 8.2 FL Neutrophils (%) (Auto) 80.2 % Lymphocytes (%) (Auto) 12.7 % Monocytes (%) (Auto) 5.6 % Eosinophils (%) (Auto) 1.1 % Basophils (%) (Auto) 0.4 % Neutrophils # (Auto) 4.3 TH/MM3 Lymphocytes # (Auto) 0.7 TH/MM3 Monocytes # (Auto) 0.3 TH/MM3 Eosinophils # (Auto) 0.1 TH/MM3 Basophils # (Auto) 0.0 TH/MM3 CBC Comment AUTO DIFF Differential Comment AUTO DIFF CONFIRMED Platelet Estimate NORMAL Platelet Morphology Comment NORMAL Microbiology Date/Time Procedure Status Source Growth 04/15/16 08:40 Aerobic Blood Culture - Preliminary Resulted Blood Peripheral NO GROWTH IN 2 DAYS 04/15/16 08:40 Anaerobic Blood Culture - Preliminary Resulted Blood Peripheral NO GROWTH IN 2 DAYS Imaging Last Impressions Head CT 04/02/16 0000 Signed Impressions: Service Date/Time: Saturday, April 02, 2016 10:51 - CONCLUSION: Normal examination. Jose Dukes MD Renal Ultrasound 03/31/16 0000 Signed Impressions: Service Date/Time: Thursday, March 31, 2016 11:35 - CONCLUSION: Kidneys are normal other than questionable minimal increase echotexture the cortex. Cortical medullary junction is well-maintained with no evidence hydronephrosis. Sam Montiel MD Physical Exam CONSTITUTIONAL/GENERAL: This is an adequately nourished patient, in no apparent distress. TUBES/LINES/DRAINS: PICC in place RUE site looks OK SKIN: No jaundice, rashes, EYES: Pupils equal and round and reactive. Extraocular motions intact. No scleral icterus. ENT: Hearing grossly normal. CARDIOVASCULAR: Regular rate and rhythm without murmurs, gallops, or rubs. RESPIRATORY/CHEST: Symmetric, unlabored respirations. Crackles to auscultation on L base GASTROINTESTINAL: Abdomen soft, non-tender, nondistended. GENITOURINARY: Without palpable bladder distension. Vargas catheter in place with bloody appearing urine MUSCULOSKELETAL: Extremities without clubbing, cyanosis, Trace amount of soft pitting edema. No mottling or clubbing. BACK: VACin place with srous dc NEUROLOGICAL: Awake and alert. Paraplegia. Speech normal Moves b/l upper extremities. 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 source ? PICC vs new UTI - BC P - abnormal UA with macrohematuria ? ATX L ESR elevated - chk CXR - dw wound nurse: - would like to see pt afebrile x 1-2 days prior to clear for dc - also high ESR level is concerning, need to repeat in 1 week. If still high , needs repeat MRI of the back dw RN dw pt dw wound care nurse Mamie Arzola MD Apr 17, 2016 14:33
--- NOTE | 2016-04-17 15:01 | RADRPT ---
EXAM DATE/TIME: 04/17/2016 14:38 [facility] COMPARISON: CHEST SINGLE AP, February 14, 2016, 15:58. INDICATIONS : Fever MEDICAL HISTORY : None. SURGICAL HISTORY : Spine ENCOUNTER: Subsequent ACUITY: 1 week PAIN SCORE: 0/10 LOCATION: Bilateral chest FINDINGS: A single view of the chest demonstrates the lungs to be symmetrically aerated without evidence of mas s, infiltrate or effusion. The cardiomediastinal contours are unremarkable. Osseous structures are intact. CONCLUSION: No acute disease. Lars Brand MD FACR on April 17, 2016 at 15:00 Board Certified Radiologist. This report was verified electronically.
--- NOTE | 2016-04-17 17:15 | HHI.PR ---
Addendum to Inpatient Note Addendum Reason: Additional Documentation Additional Information CXR negative Wound examanined during VAC change: fully granulated, very shallow minimal serous dc size of a quater repeat UA, BC negative OK to dc if remains afebrile fu ESR if persists will need repeat MRi or CT of the back Mamie Arzola MD Apr 17, 2016 17:15
[2016-04-17 17:34] VITALS: BP 116/77; PULSE 79; RESP 18; TEMP 98.2; O2SAT 96
[2016-04-17 20:00] VITALS: BP 121/71; PULSE 88; RESP 20; TEMP 100.3; O2SAT 94
[2016-04-17] MEDS: ENOXAPARIN SODIUM 30 MG/0.3 ML SYRINGE SQ SCH (21:42)
[2016-04-18] VITALS: BP 127/72; PULSE 81; RESP 20; TEMP 98.3; O2SAT 96
[2016-04-18 05:45] VITALS: BP 110/68; PULSE 69; RESP 20; TEMP 98.3; O2SAT 95
--- NOTE | 2016-04-18 07:44 | HHI.PR ---
Subjective Remarks feels well, denies any fever or chills, headaches does self catheterization 4-5x a day overnight T max 100.6 patient very knowledgeable and pro active with his care Objective Vitals Vital Signs Date Time Temp Pulse Resp B/P Pulse Ox O2 Delivery O2 Flow Rate FiO2 04/18/16 05:45 98.3 69 20 110/68 95 04/18/16 00:00 98.3 81 20 127/72 96 04/17/16 20:00 100.3 88 20 121/71 94 04/17/16 17:34 98.2 79 18 116/77 96 04/17/16 12:05 99.2 74 20 107/68 95 04/17/16 08:59 98.0 93 18 114/70 98 I/O 04/17/16 04/17/16 04/17/16 04/18/16 04/18/16 04/18/16 07:00 15:00 23:00 07:00 15:00 23:00 Intake Total 800 ml 240 ml Output Total 1600 ml 400 ml 800 ml 1450 ml Balance -800 ml -400 ml -560 ml -1450 ml Intake Oral 800 ml 240 ml Output Urine Total 1600 ml 400 ml 800 ml 1450 ml # Bowel Movements 0 0 0 0 Result Diagram: 04/16/16 1416 Imaging Last Impressions Chest X-Ray 04/17/16 0000 Signed Impressions: Service Date/Time: Sunday, April 17, 2016 14:38 - CONCLUSION: No acute disease. Lars Brand MD FACR Head CT 04/02/16 0000 Signed Impressions: Service Date/Time: Saturday, April 02, 2016 10:51 - CONCLUSION: Normal examination. Jose Dukes MD Renal Ultrasound 03/31/16 0000 Signed Impressions: Service Date/Time: Thursday, March 31, 2016 11:35 - CONCLUSION: Kidneys are normal other than questionable minimal increase echotexture the cortex. Cortical medullary junction is well-maintained with no evidence hydronephrosis. Sam Montiel MD Objective Remarks awake and alert, oriented x 3 no nuchal rigidity lungs - no rales or wheezes regular rhythm abdomen soft, nontender extremities no edema- paraplegia back exam- VAC in place changed 04/17 A/P Problem List: (1) Chronic anemia ICD Code: D64.9 Status: Chronic (2) Neurogenic bladder ICD Code: N31.9 Status: Chronic (3) Paraplegia ICD Code: G82.20 Status: Chronic (4) UTI (urinary tract infection) ICD Code: N39.0 Status: Acute (5) Acute kidney injury ICD Code: N17.9 Status: Acute Assessment and Plan 30 years old male Multiple wounds infection on buttocks/ sacral area present on admission. 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 wound care following, continue wound vac change --F last changed 04/17- good granulation . Acute metabolic encephalopathy-resolved. Patient initially with encephalopathy and orofacial dyskinesis and choreiform movement of BL UE poss 2/2 side effects of meds, mild form of serotonin syndrom ( compazine, citalopram -SSRIs and Linezolid - MAO inhibitor. evaluated by neurology. Acute kidney injury: resolved Consulted nephrology who has signed off. Emphasized importance of compliance with self cath he is refusing feliciano. chronic anemia. Iron deficiency anemia/anemia of chronic disease. s/p PRBC transfusion. H/H stable.will monitor periodically. LUQ Abdominal pain and vomiting/nausea: Improved. No complains. Unclear etiology. Lipase within normal limits. Supportive care with IVF and antiemetics. 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 DVT prophylaxis: lovenox. Discharge Planning not ready for discharge due to recurrent fever.- low grade fever overnight- send UA Problem Qualifiers (1) UTI (urinary tract infection): Qualified Code: N39.0 - Urinary tract infection without hematuria, site unspecified Melanie Osorio MD Apr 18, 2016 07:44
[2016-04-18 08:37] VITALS: BP 112/61; PULSE 64; RESP 18; TEMP 97.6; O2SAT 96
[2016-04-18] MEDS: SODIUM HYPOCHLORITE 0.125% 500 ML BTL TOPICAL SCH (09:00)
[2016-04-18] MEDS: PREGABALIN 75 MG CAP PO SCH ×2 (09:00→21:30)
[2016-04-18] MEDS: SODIUM CHLORIDE 0.9% FLUSH 5 ML FLUSH FLUSH SCH ×2 (09:00→21:00)
[2016-04-18] MEDS: LACTOBACILLUS ACIDOPHILUS TAB PO SCH ×2 (09:18→21:30)
[2016-04-18] MEDS: BACLOFEN 10 MG TAB PO SCH ×3 (09:18→19:12)
[2016-04-18] MEDS: MORPHINE SULFATE 30 MG CONTROLLED RELEASE TAB PO SCH ×3 (09:19→19:12)
[2016-04-18] MEDS: TOLTERODINE TARTRATE 2 MG CAP LA PO SCH (09:19)
[2016-04-18] MEDS: MORPHINE SULFATE 15 MG TAB PO PRN ×3 (09:30→19:13)
[2016-04-18 12:11] VITALS: BP 120/65; PULSE 75; RESP 18; TEMP 98.5; O2SAT 93
[2016-04-18 16:48] VITALS: BP 117/64; PULSE 82; RESP 16; TEMP 98.6; O2SAT 97
[2016-04-18 20:00] VITALS: BP 119/68; PULSE 74; RESP 20; TEMP 98.9; O2SAT 96
--- NOTE | 2016-04-18 20:49 | HHI.PR ---
Addendum to Inpatient Note Additional Information worsening ESR no fever x 24 hrs blood, urine clx, CXR negative re-image back (MRI) Also persistent hematuria, with innumerable RBC + microcytoic anemia requiring blood transfusion - consult urology Mamie Arzola MD Apr 18, 2016 20:49
[2016-04-18] MEDS: ENOXAPARIN SODIUM 30 MG/0.3 ML SYRINGE SQ SCH (21:30)
[2016-04-19 08:00] VITALS: BP 117/74; PULSE 58; RESP 18; TEMP 97.6; O2SAT 98
[2016-04-19] MEDS: BACLOFEN 10 MG TAB PO SCH ×3 (08:37→17:26)
[2016-04-19] MEDS: MORPHINE SULFATE 30 MG CONTROLLED RELEASE TAB PO SCH ×3 (08:37→17:26)
[2016-04-19] MEDS: LACTOBACILLUS ACIDOPHILUS TAB PO SCH ×2 (08:37→21:55)
[2016-04-19] MEDS: PREGABALIN 75 MG CAP PO SCH ×2 (08:37→21:55)
[2016-04-19] MEDS: TOLTERODINE TARTRATE 2 MG CAP LA PO SCH (08:37)
[2016-04-19] MEDS: SODIUM CHLORIDE 0.9% FLUSH 5 ML FLUSH FLUSH SCH ×2 (08:38→21:00)
[2016-04-19] MEDS: MORPHINE SULFATE 15 MG TAB PO PRN ×4 (08:41→21:57)
[2016-04-19] MEDS: SODIUM HYPOCHLORITE 0.125% 500 ML BTL TOPICAL SCH (08:52)
--- NOTE | 2016-04-19 11:39 | HHI.PR ---
Subjective Remarks no complains Objective Vitals Vital Signs Date Time Temp Pulse Resp B/P Pulse Ox O2 Delivery O2 Flow Rate FiO2 04/19/16 08:00 97.6 58 18 117/74 98 04/18/16 20:00 98.9 74 20 119/68 96 04/18/16 16:48 98.6 82 16 117/64 97 04/18/16 12:11 98.5 75 18 120/65 93 I/O 04/18/16 04/18/16 04/18/16 04/19/16 04/19/16 04/19/16 07:00 15:00 23:00 07:00 15:00 23:00 Output Total 1450 ml 760 ml 700 ml 1500 ml Balance -1450 ml -760 ml -700 ml -1500 ml Output Urine Total 1450 ml 760 ml 700 ml 1500 ml # Bowel Movements 0 0 0 Result Diagram: 04/16/16 1416 Objective Remarks awake and alert, oriented x 3 no nuchal rigidity lungs - no rales or wheezes regular rhythm abdomen soft, nontender extremities no edema- paraplegia back exam- VAC in place changed 04/17 A/P Problem List: (1) Chronic anemia ICD Code: D64.9 Status: Chronic (2) Neurogenic bladder ICD Code: N31.9 Status: Chronic (3) Paraplegia ICD Code: G82.20 Status: Chronic (4) UTI (urinary tract infection) ICD Code: N39.0 Status: Acute (5) Acute kidney injury ICD Code: N17.9 Status: Acute Assessment and Plan 30 years old male Multiple wounds infection on buttocks/ sacral area present on admission. 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 wound care following, continue wound vac change -- last changed 04/17- good granulation . Acute metabolic encephalopathy-resolved. Patient initially with encephalopathy and orofacial dyskinesis and choreiform movement of BL UE poss 2/2 side effects of meds, mild form of serotonin syndrom ( compazine, citalopram -SSRIs and Linezolid - MAO inhibitor. evaluated by neurology. Acute kidney injury: resolved Consulted nephrology who has signed off. Emphasized importance of compliance with self cath he is refusing feliciano. chronic anemia. Iron deficiency anemia/anemia of chronic disease. s/p PRBC transfusion. H/H stable.will monitor periodically. LUQ Abdominal pain and vomiting/nausea: Improved. No complains. Unclear etiology. Lipase within normal limits. Supportive care with IVF and antiemetics. 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 DVT prophylaxis: lovenox. Discharge Planning not ready for discharge due to recurrent fever.- low grade fever overnight- send UA Problem Qualifiers (1) UTI (urinary tract infection): Qualified Code: N39.0 - Urinary tract infection without hematuria, site unspecified Melanie Osorio MD Apr 19, 2016 11:39
[2016-04-19 12:00] VITALS: BP 113/72; PULSE 77; RESP 18; TEMP 96.3; O2SAT 95
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
[2016-04-19 16:00] VITALS: BP 122/64; PULSE 64; RESP 18; TEMP 97.6; O2SAT 97
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
[2016-04-19 20:00] VITALS: BP 115/78; PULSE 98; RESP 18; TEMP 97; O2SAT 98
[2016-04-19] MEDS: ENOXAPARIN SODIUM 30 MG/0.3 ML SYRINGE SQ SCH (21:57)
[2016-04-20] VITALS: BP 128/74; PULSE 71; RESP 18; TEMP 97; O2SAT 98
[2016-04-20 04:00] VITALS: BP 113/84; PULSE 98; RESP 18; TEMP 97.9; O2SAT 97
[2016-04-20 08:00] VITALS: BP 116/69; PULSE 57; RESP 18; TEMP 97.4; O2SAT 95
[2016-04-20] MEDS: SODIUM CHLORIDE 0.9% FLUSH 5 ML FLUSH FLUSH SCH ×2 (09:00→21:00)
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
[2016-04-20] MEDS: BACLOFEN 10 MG TAB PO SCH ×3 (10:28→18:12)
[2016-04-20] MEDS: MORPHINE SULFATE 30 MG CONTROLLED RELEASE TAB PO SCH ×3 (10:28→18:12)
[2016-04-20] MEDS: LACTOBACILLUS ACIDOPHILUS TAB PO SCH ×2 (10:28→22:18)
[2016-04-20] MEDS: PREGABALIN 75 MG CAP PO SCH ×2 (10:29→22:19)
[2016-04-20] MEDS: TOLTERODINE TARTRATE 2 MG CAP LA PO SCH (10:29)
[2016-04-20] MEDS: SODIUM HYPOCHLORITE 0.125% 500 ML BTL TOPICAL SCH (10:30)
[2016-04-20 12:00] VITALS: BP 118/72; PULSE 66; RESP 18; TEMP 97.6; O2SAT 96
[2016-04-20] MEDS ORDERED: GADODIAMIDE PF 287 MG/ML 20 ML VIAL (for RAD MRI) IV ONE (12:03)
--- NOTE | 2016-04-20 15:02 | RADRPT ---
EXAM DATE/TIME: 04/20/2016 11:19 [place] COMPARISON: MRI THORACIC SPINE W & W/O CONTRAST, February 11, 2016, 10:59. INDICATIONS : Osteomyelitis. Back pain. CONTRAST: 19 cc Omniscan (gadodiamide) IV MEDICAL HISTORY : parapalegic. SURGICAL HISTORY : Femur ORIF, pelvis, T-Spine fusion. ENCOUNTER: Subsequent ACUITY: 4-6 months PAIN SCORE: 4/10 LOCATION: mid back TECHNIQUE: Multiplanar multisequence MRI of the thoracic spine was performed. FINDINGS: Today's exam is compared to the prior study. Patient is status post previous spinal surgery from T10- L1. The hardware is in place which causes artifact on the images. However, there appears to be normal signal intensity within the bone marrow of the thoracic vertebral bodies. There is no evidence of an y abnormal enhancement in the vertebral bodies. There continues to be some stable subluxation of T11 over T12. The spinal cord appears to end at about the level of T7. No abnormal enhancement is seen th e spinal cord. Postsurgical changes are again noted at the level of the thoracic fusion. No focal flu id collections are seen in the soft tissues posteriorly. On the axial slice images no abnormal parasp inal soft tissue fluid collections are seen. CONCLUSION: There is no evidence to suggest osteomyelitis involving the thoracic spine. No significant changes ar e demonstrated. Benedict Holliday MD on April 20, 2016 at 14:52 Board Certified Radiologist. This report was verified electronically.
[2016-04-20 16:00] VITALS: BP 126/78; PULSE 74; RESP 18; TEMP 96.7; O2SAT 98
[2016-04-20 21:30] VITALS: BP 131/66; PULSE 86; RESP 16; TEMP 99.1; O2SAT 95
[2016-04-20] MEDS: MORPHINE SULFATE 15 MG TAB PO PRN (22:18)
[2016-04-20] MEDS: ENOXAPARIN SODIUM 30 MG/0.3 ML SYRINGE SQ SCH (22:19)
[2016-04-21] VITALS: BP 133/72; PULSE 92; RESP 18; TEMP 98; O2SAT 97
[2016-04-21] MEDS: MORPHINE SULFATE 15 MG TAB PO PRN ×2 (07:31→15:07)
[2016-04-21 08:00] VITALS: BP 112/63; PULSE 57; RESP 18; TEMP 96.5; O2SAT 95
[2016-04-21] MEDS: SODIUM HYPOCHLORITE 0.125% 500 ML BTL TOPICAL SCH (09:00)
[2016-04-21] MEDS: SODIUM CHLORIDE 0.9% FLUSH 5 ML FLUSH FLUSH SCH (09:00)
[2016-04-21] MEDS: MORPHINE SULFATE 30 MG CONTROLLED RELEASE TAB PO SCH ×2 (09:11→15:07)
[2016-04-21] MEDS: LACTOBACILLUS ACIDOPHILUS TAB PO SCH (09:11)
[2016-04-21] MEDS: TOLTERODINE TARTRATE 2 MG CAP LA PO SCH (09:11)
[2016-04-21] MEDS: PREGABALIN 75 MG CAP PO SCH (09:11)
[2016-04-21] MEDS: BACLOFEN 10 MG TAB PO SCH ×2 (09:11→15:07)
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
[2016-04-21 12:13] VITALS: BP 119/61; PULSE 75; RESP 18; TEMP 97.6; O2SAT 97
[2016-04-21] MEDS ORDERED: MORP1TAB25 PO (13:19)
[2016-04-21] MEDS ORDERED: CARI350T20 PO (13:19)
[2016-04-21] MEDS ORDERED: LYRI75CA PO (13:19)
[2016-04-21] MEDS ORDERED: BACL10TA PO (13:19)
[2016-04-21] MEDS ORDERED: MSIR15 PO (13:19)
[2016-04-21] MEDS ORDERED: DETR2CAP PO (13:19)
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
[2016-05-09] MEDS ORDERED: BACT800T5 PO (10:38)
[2016-05-19] MEDS ORDERED: PERC10TA27 PO (16:10)
[2016-06-23] MEDS ORDERED: HYDR-3535 PO (15:53)
[2016-06-23] MEDS ORDERED: SERT-132 PO (15:53)
[2016-06-23] MEDS ORDERED: LYRI200C PO (15:53)
[2016-07-07] MEDS ORDERED: COLL30T TOPICAL (16:09)
[2016-07-07] MEDS ORDERED: DAKI0.12 TOPICAL (16:20)
[2016-07-10] MEDS ORDERED: BACT800T5 PO (12:25)
[2016-08-10] MEDS ORDERED: FERR1TAB36 PO (14:34)
[2016-08-30] MEDS ORDERED: HYDR-3583 PO (15:57)
[2016-08-30] MEDS ORDERED: BUPR150T3 PO (15:57)
[2016-09-27] MEDS ORDERED: HYDR-3583 PO (14:46)
[2016-09-27] MEDS ORDERED: LYRI200C PO (14:46)
[2016-09-27] MEDS ORDERED: BUPR150T3 PO (14:46)
== END 2016-04-21 16:46 | disposition home or self-care (01) | DRG 682 ==
LOC: NEPC 14:37 → NEDA 18:13 → N05A 21:28
PROVIDERS: ADMIT Internal Medicine; ATTEND Internal Medicine
PROC: 30233N1 Transfusion of Nonautologous Red Blood Cells into Peripheral Vein, Percutaneous Approach (ICD-10-PCS; principal; 2016-04-01)
PROC: 0DJD8ZZ Inspection of Lower Intestinal Tract, Via Natural or Artificial Opening Endoscopic (ICD-10-PCS; 2016-04-05)
PROC: 0DJ08ZZ Inspection of Upper Intestinal Tract, Via Natural or Artificial Opening Endoscopic (ICD-10-PCS; 2016-04-05 11:05)
DX: N17.9 Acute kidney failure, unspecified (principal); G92 Toxic encephalopathy; A41.9 Sepsis, unspecified organism; L89.159 Pressure ulcer of sacral region, unspecified stage; L89.309 Pressure ulcer of unspecified buttock, unspecified stage; G82.20 Paraplegia, unspecified; E86.0 Dehydration; K56.7 Ileus, unspecified; G24.02 Drug induced acute dystonia; N39.0 Urinary tract infection, site not specified; T81.4XXA Infection following a procedure, initial encounter; T84.59XA Infection and inflammatory reaction due to other internal joint prosthesis, initial encounter; T83.83XA Hemorrhage due to genitourinary prosthetic devices, implants and grafts, initial encounter; T18.2XXA Foreign body in stomach, initial encounter; S24.103S Unspecified injury at T7-T10 level of thoracic spinal cord, sequela; N31.9 Neuromuscular dysfunction of bladder, unspecified; D63.8 Anemia in other chronic diseases classified elsewhere; R10.12 Left upper quadrant pain; R11.2 Nausea with vomiting, unspecified; D50.9 Iron deficiency anemia, unspecified; B95.62 Methicillin resistant Staphylococcus aureus infection as the cause of diseases classified elsewhere; T43.3X5A Adverse effect of phenothiazine antipsychotics and neuroleptics, initial encounter; T43.225A Adverse effect of selective serotonin reuptake inhibitors, initial encounter; T36.8X5A Adverse effect of other systemic antibiotics, initial encounter; B96.1 Klebsiella pneumoniae [K. pneumoniae] as the cause of diseases classified elsewhere; B96.29 Other Escherichia coli [E. coli] as the cause of diseases classified elsewhere; E87.6 Hypokalemia; K76.9 Liver disease, unspecified; N02.9 Recurrent and persistent hematuria with unspecified morphologic changes; V89.2XXS Person injured in unspecified motor-vehicle accident, traffic, sequela; Y73.1 Therapeutic (nonsurgical) and rehabilitative gastroenterology and urology devices associated with adverse incidents; Z72.0 Tobacco use; Z86.14 Personal history of Methicillin resistant Staphylococcus aureus infection; Z87.820 Personal history of traumatic brain injury; Z88.1 Allergy status to other antibiotic agents; Z91.19 Patient's noncompliance with other medical treatment and regimen
CPT/HCPCS: 36430; 70450; 71010; 72157; 76775; 80048; 80053; 81001; 82105; 82306; 82550; 82728; 82948; 83540; 83550; 83690; 83735; 83970; 84244; 85014; 85018; 85025; 85652; 86021; 86160; 86850; 86900; 86901; 86920; 87040; 87077; 87086; 87186; 99284; A9579; J0712; J1200; J1335; J1650; J1940; J2250; J2405; J2543; J2997; J3475; J3480; J7030; P9016

== ENCOUNTER 2016-05-24 14:40 | Emergency (ER) | payer SELFPAY ==
[~2016-05-24] VITALS: Ht 193 cm; Wt 90.9 kg
[~2016-05-24 14:40] MED LIST changes: +BACL10TA PO; +CARI350T20 PO; +CELE20TA PO; +DETR2CAP PO; +LIDO2GEL11 TOPICAL; +LYRI75CA PO; +MORP1TAB25 PO; +MSIR15 PO; +PERC10TA27 PO; -VESI5TAB PO; +ZYVO600T PO
[2016-05-24 14:43] VITALS: BP 100/59; PULSE 84; RESP 14; TEMP 98.4; O2SAT 94
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
[2016-05-24] MEDS ORDERED: SODIUM CHLORIDE 0.9% FLUSH 5 ML FLUSH IVF PRN (16:30)
[2016-05-24 16:58] LABS: AUTOMATED NEUTROPHIL # 7.9 TH/MM3 (1.8-7.7); BASOPHIL # 0.1 TH/MM3 (0-0.2); BASOPHIL % 0.9 % (0.0-2.0); EOSINOPHIL # 0.1 TH/MM3 (0-0.4); EOSINOPHIL % 0.6 % (0.0-4.0); HEMATOCRIT 22.8 % (39.0-51.0); HEMO FLAGS DIFF FINAL; LYMPH % 13.2 % (9.0-44.0); LYMPHOCYTE # 1.3 TH/MM3 (1.0-4.8); MEAN CELL VOLUME 78.3 FL (80.0-100.0); MEAN CORPUSCULAR HEMOGLOBIN 25.7 PG (27.0-34.0); MEAN CORPUSCULAR HGB CONC 32.8 % (32.0-36.0); MONO % 3.5 % (0.0-8.0); NEUT % 81.8 % (16.0-70.0); PLATELET COUNT 496 TH/MM3 (150-450); RED BLOOD COUNT 2.92 MIL/MM3 (4.50-5.90); RED CELL DISTRIBUTION WIDTH 18.9 % (11.6-17.2); WHITE BLOOD COUNT 9.7 TH/MM3 (4.0-11.0)
[2016-05-24 17:36] LABS: BICARBONATE 31.1 MEQ/L (21.0-32.0); POTASSIUM 4.2 MEQ/L (3.5-5.1)
--- NOTE | 2016-05-24 17:45 | PD ---
Data Data Last Documented VS Vital Signs Date Time Temp Pulse Resp B/P Pulse Ox O2 Delivery O2 Flow Rate FiO2 05/24/16 14:43 98.4 84 14 100/59 94 Room Air Orders Basic Metabolic Panel (Bmp) (05/24/16 16:23) Complete Blood Count With Diff (05/24/16 16:23) Ecg Monitoring (05/24/16 16:23) Iv Access Insert/Monitor (05/24/16 16:23) Oximetry (05/24/16 16:23) Sodium Chloride 0.9% Flush (Ns Flush) (05/24/16 16:30) Type And Screen (05/24/16 16:23) Labs Laboratory Tests Test 05/24/16 16:30 White Blood Count 9.7 TH/MM3 Red Blood Count 2.92 MIL/MM3 Hemoglobin 7.5 GM/DL Hematocrit 22.8 % Mean Corpuscular Volume 78.3 FL Mean Corpuscular Hemoglobin 25.7 PG Mean Corpuscular Hemoglobin 32.8 % Concent Red Cell Distribution Width 18.9 % Platelet Count 496 TH/MM3 Mean Platelet Volume 7.2 FL Neutrophils (%) (Auto) 81.8 % Lymphocytes (%) (Auto) 13.2 % Monocytes (%) (Auto) 3.5 % Eosinophils (%) (Auto) 0.6 % Basophils (%) (Auto) 0.9 % Neutrophils # (Auto) 7.9 TH/MM3 Lymphocytes # (Auto) 1.3 TH/MM3 Monocytes # (Auto) 0.3 TH/MM3 Eosinophils # (Auto) 0.1 TH/MM3 Basophils # (Auto) 0.1 TH/MM3 CBC Comment DIFF FINAL Differential Comment Sodium Level 135 MEQ/L Potassium Level 4.2 MEQ/L Chloride Level 97 MEQ/L Carbon Dioxide Level 31.1 MEQ/L Anion Gap 7 MEQ/L Blood Urea Nitrogen 12 MG/DL Creatinine 1.07 MG/DL Estimat Glomerular Filtration 81 ML/MIN Rate Random Glucose 93 MG/DL Calcium Level 8.7 MG/DL Blood Type O NEGATIVE Antibody Screen NEGATIVE MDM Supervised Visit with KAYLEE: Yes Narrative Course The history, exam, and medical decision-making in the associated midlevel provider note were completed with my assistance. I reviewed and agree with the findings presented. I attest that I had a [id number] encounter with the patient on the same day, and personally performed and documented my assessment and findings in the medical record. *My assessment and Findings: This is a 30-year-old male who has a history of paraplegia in the setting of a traumatic injury who has anemia of chronic disease presenting to the emergency department sent in because his hemoglobin was 6.8. He says his hemoglobin fluctuates quite a bit. He does take iron supplementation. Here his hemoglobin was 7.5. I offered him blood transfusion but I don't think it's necessary and I think he can follow-up as an outpatient. The patient was discharged home. Pepper Chavez MD May 24, 2016 17:45
[2016-06-23] MEDS ORDERED: HYDR-3535 PO (15:53)
[2016-06-23] MEDS ORDERED: SERT-132 PO (15:53)
[2016-06-23] MEDS ORDERED: LYRI200C PO (15:53)
[2016-07-07] MEDS ORDERED: COLL30T TOPICAL (16:09)
[2016-07-07] MEDS ORDERED: DAKI0.12 TOPICAL (16:20)
[2016-07-10] MEDS ORDERED: BACT800T5 PO (12:25)
[2016-08-10] MEDS ORDERED: FERR1TAB36 PO (14:34)
[2016-08-30] MEDS ORDERED: HYDR-3583 PO (15:57)
[2016-08-30] MEDS ORDERED: BUPR150T3 PO (15:57)
[2016-09-27] MEDS ORDERED: LYRI200C PO (14:46)
[2016-09-27] MEDS ORDERED: HYDR-3583 PO (14:46)
[2016-09-27] MEDS ORDERED: BUPR150T3 PO (14:46)
== END 2016-05-24 18:17 | disposition home or self-care (01) ==
LOC: NEPE 14:40
DX: D64.9 Anemia, unspecified (principal); G82.20 Paraplegia, unspecified; I10 Essential (primary) hypertension; Z87.820 Personal history of traumatic brain injury; Z72.0 Tobacco use
CPT/HCPCS: 80048; 85025; 86850; 86900; 86901; 99283

== ENCOUNTER → 2016-11-06 | Day surgery (SDC) | payer OTHER ==
[~2016-11-06] VITALS: Ht 193 cm; Wt 104.5 kg
[~2016-11-06] MED LIST changes: -BACL10TA PO; +BUPR150T3 PO; -CARI350T20 PO; +CEFTAR600P IV; -CELE20TA PO; +CEPH-459 PO; +CHLORHEXIDINE GLUCONATE 2 % 1 PACK (2 CLOTHS) TOPICAL PRN; -DAKI0.12 TOPICAL; -DETR2CAP PO; +FERR325C PO; +HYDR-3583 PO; +INSULIN HUMAN REGULAR 1,000 UNITS/10 ML VIAL SQ PRN; +LACTATED RINGER'S 1000 ML IV PRN; -LACTCAP8 PO; -LIDO2GEL11 TOPICAL; -LYRI75CA PO; +METOPROLOL TARTRATE 25 MG TAB PO PRN; +MIDAZOLAM HCL 2 MG/2 ML VIAL ONE; -MORP1TAB25 PO; -MSIR15 PO; +ONABOTULINUMTOXINA INJ 100 UNITS/VIAL SCH; +ONDANSETRON HCL 4 MG/2 ML VIAL IV PUSH ONE; +ONDANSETRON HCL 4 MG/2 ML VIAL IV PUSH PRN; +OXAN10TA PO; -PERC10TA27 PO; +PERC5TAB12 PO; +POVIDONE IODINE 5% (ANTISEPSIS KIT) 4 APPLICATIONS EACH NARE PRN; +PROPOFOL 200 MG/20 ML AMP IV ONE; +SODIUM CHLORID 0.9% 500 ML IV PRN; +STERILE WATER FOR INJ 20 ML VIAL ONE; -ZYVO600T PO; +ceFAZolin 2 GM PREMIX 50 ML IV SCH; +oxyCODONE/ACETAMINOPHEN 5 MG/325 MG TAB PO PRN
[2016-11-06 12:04] VITALS: BP 122/70; PULSE 74; RESP 16; TEMP 98.3; O2SAT 97
[2016-11-06 12:51] LABS: AUTOMATED NEUTROPHIL # 7.3 TH/MM3 (1.8-7.7); BASOPHIL # 0.1 TH/MM3 (0-0.2); BASOPHIL % 0.5 % (0.0-2.0); EOSINOPHIL % 0.4 % (0.0-4.0); LYMPH % 19.7 % (9.0-44.0); MEAN CELL VOLUME 68.9 FL (80.0-100.0); MEAN CORPUSCULAR HEMOGLOBIN 20.9 PG (27.0-34.0); MEAN CORPUSCULAR HGB CONC 30.3 % (32.0-36.0); MONO % 6.3 % (0.0-8.0); NEUT % 73.1 % (16.0-70.0); PLATELET COUNT 406 TH/MM3 (150-450); RED BLOOD COUNT 3.15 MIL/MM3 (4.50-5.90); RED CELL DISTRIBUTION WIDTH 22.2 % (11.6-17.2)
[2016-11-06 12:57] LABS: HEMO FLAGS DIFF FINAL
[2016-11-06 12:58] LABS: HEMATOCRIT 21.7 % (39.0-51.0)
--- NOTE | 2016-11-06 14:13 | PD.OP ---
Operative Report Date of Surgery: Nov 06, 2016 Preoperative Diagnosis: (1) Neurogenic bladder Postoperative Diagnosis: (1) Neurogenic bladder Procedure: Cystoscopy and intravesical Botox injections Anesthesia: General Surgeon: Chandler Montelongo Head Start Director(s): None Operation and Findings: Indication for procedure: Case of a pleasant 31-year-old gentleman with neurogenic bladder dysfunction who presents today for cystoscopy with intravesical Botox injections to facilitate bladder storage. Patient needs to perform clean intermittent catheterization to empty his bladder. Operative procedure in detail: Patient was brought to the operating suite and placed supine on the OR table. He was then placed under general anesthesia. He was then repositioned in the dorsal lithotomy position and prepped and draped in normal sterile fashion. After appropriate timeout was undertaken I proceeded with cystoscopic evaluation utilizing the rigid cystoscope with the 20 [place] sheath and the 30 lens. Urethra was patent without stricture formation, the prostatic urethra was nonobstructing and further passes of a cystoscope within the urinary bladder revealed both right and left ureteral orifices to be in correct anatomic position effluxing clear yellow urine. There were no bladder mucosal lesions, calculi or diverticula formation. Bladder trabeculations were noted. I then proceeded with the Botox injections. 100 units of Botox was diluted in a total volume of 10 cc water and a syringe. Using the Coloplast 5 [place] flexible needle, I proceeded with injecting approximately 1/2 cc at a time throughout the bladder with each injection site approximately 1 cm apart. I used a total of 200 units of Botox. I next proceeded with placing a 16 [place] 10 cc Vargas catheter and connected this to gravity drainage. The patient tolerated the procedures without complications and was transferred to the PACU in satisfactory condition. Chandler Montelongo MD Nov 06, 2016 14:13
[2016-11-06 15:24] VITALS: BP 119/71; PULSE 83; RESP 20; TEMP 97.6; O2SAT 100
== END | disposition home or self-care (01) ==
LOC: HSDC 11:01
PROVIDERS: ATTEND Urology
DX: N31.9 Neuromuscular dysfunction of bladder, unspecified (principal); Z01.818 Encounter for other preprocedural examination
CPT/HCPCS: 00910; 52287; 85025; J0585; J0690; J2250; J2405; J3010; J7120

== ENCOUNTER 2017-09-13 09:31 | Emergency (ER) | payer OTHER ==
[~2017-09-13 09:31] MED LIST changes: -CEPH-459 PO; -CHLORHEXIDINE GLUCONATE 2 % 1 PACK (2 CLOTHS) TOPICAL PRN; -FERR325C PO; -INSULIN HUMAN REGULAR 1,000 UNITS/10 ML VIAL SQ PRN; -LACTATED RINGER'S 1000 ML IV PRN; -METOPROLOL TARTRATE 25 MG TAB PO PRN; -MIDAZOLAM HCL 2 MG/2 ML VIAL ONE; -ONABOTULINUMTOXINA INJ 100 UNITS/VIAL SCH; -ONDANSETRON HCL 4 MG/2 ML VIAL IV PUSH ONE; -ONDANSETRON HCL 4 MG/2 ML VIAL IV PUSH PRN; -PERC5TAB12 PO; -POVIDONE IODINE 5% (ANTISEPSIS KIT) 4 APPLICATIONS EACH NARE PRN; -PROPOFOL 200 MG/20 ML AMP IV ONE; -SODIUM CHLORID 0.9% 500 ML IV PRN; -STERILE WATER FOR INJ 20 ML VIAL ONE; -ceFAZolin 2 GM PREMIX 50 ML IV SCH; -oxyCODONE/ACETAMINOPHEN 5 MG/325 MG TAB PO PRN
[2017-09-13 09:38] VITALS: BP 151/99; PULSE 110; RESP 17; TEMP 99; O2SAT 99
[2017-09-13] MEDS ORDERED: PIPERACIL-TAZO 4.5 GM PREMIX 100 ML IV STA (10:03)
[2017-09-13] MEDS ORDERED: diphenhydrAMINE HCL 50 MG/ML VIAL IV PUSH ONE (10:15)
[2017-09-13] MEDS ORDERED: SODIUM CHLOR 0.9% 1000 ML INJ 1,000 ML IV ONE (10:15)
[2017-09-13] MEDS ORDERED: MORPHINE SULFATE 4 MG/ML INJ IV PUSH ONE (10:15)
[2017-09-13] MEDS ORDERED: PROCHLORPERAZINE INJ 10 MG/2 ML VIAL IV PUSH ONE (10:15)
--- NOTE | 2017-09-13 10:25 | PD ---
HPI . Urinary tract infection Chief Complaint: Complaint Time Seen by Provider: 09:58 Travel History International Travel<30 days: No Contact w/Intl Traveler<30days: No Traveled to known affect area: No History of Present Illness HPI This is a patient with a previous thoracic spine injury who has a neurogenic bladder and he wears a condom catheter who presents with a chief complaint of a probable urinary tract infection. Onset of symptoms was a few days ago. He describes dark-colored, cloudy urine. He has some lower abdominal pain. He has nausea and poor appetite. He has not had any vomiting and he has not been running a fever. He has had several previous episodes of urinary tract infection since his accident. He states that he did have an indwelling Vargas catheter but that it was replaced with a condom catheter about a year ago. He states that he has not had any infections since changing to the condom catheter until the past couple of days. PFSH Past Medical History Autoimmune Disease: No Heart Rhythm Problems: No Cancer: No Cardiovascular Problems: Yes High Cholesterol: No Chest Pain: No Congestive Heart Failure: No Diabetes: No Diminished Hearing: No Deep Vein Thrombosis: Yes (left arm) Endocrine: No Genitourinary: Yes (RECURRENT UTI, NEUROGENIC BLADDER) Hepatitis: No Hypertension: Yes Immune Disorder: No Implanted Vascular Access Dvce: Yes Musculoskeletal: Yes (PARAPLEGIA) Neurologic: Yes (SPINAL INJURY AT T7/T11) Psychiatric: No Reproductive: No Respiratory: No Thyroid Disease: No Past Surgical History Abdominal Surgery: No AICD: No Body Medical Devices: picc line Cardiac Surgery: No Ear Surgery: No Endocrine Surgery: No Eye Surgery: No Genitourinary Surgery: No Joint Replacement: Yes (hardware in femur and back ) Neurologic Surgery: Yes Oral Surgery: No Pacemaker: No Thoracic Surgery: No Other Surgery: Yes Social History Alcohol Use: No Tobacco Use: No (CHEWING TOBACCO DAILY) Substance Use: No Allergies-Medications (Allergen,Severity, Reaction): Coded Allergies: vancomycin (Verified Adverse Reaction, Intermediate, 11/29/16) *MDRO Multi-Drug Resistant Organism (Verified Adverse Reaction, Unknown, XDR Pseudomonas, MRSA, 11/29/16) 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-(back-02/11/16) & (buttock-05/05/16) extensively drug resistant Pseudomonas aeruginosa (urine) -03/03/16; ESBL Klebsiella Pneumoniae (urine-03/30/16) Reported Meds & Prescriptions Reported Meds & Active Scripts Active Hydrocodone-Acetaminophen 10-325 mg Tab 1 Tab PO Q6H PRN Lyrica (Pregabalin) 200 Mg Cap 200 Mg PO TID Bupropion HCl ER 24 HR (Bupropion HCl) 150 Mg Tab 150 Mg PO DAILY Reported Teflaro Inj (Ceftaroline Fosamil) 600 Mg Inj 600 Mg IV Q12H Oxandrolone 10 Mg Tab PO BID Review of Systems Except as stated in HPI: all other systems reviewed are Neg General / Constitutional: No: Fever, Chills Gastrointestinal: Positive: Nausea, Abdominal Pain, Loss of Appetite, No: Vomiting Genitourinary: Positive: Other (Dark, cloudy urine) Physical Exam Narrative GENERAL: Awake and alert. SKIN: warm/dry. HEAD: Normocephalic. Atraumatic. EYES: Pupils equal and round. Extraocular movements are intact. ENT: Mucous membranes pink and moist. NECK: Supple. Full range of motion without pain.. CARDIOVASCULAR: Regular rate and rhythm. RESPIRATORY: No accessory muscle use. Clear to auscultation. Breath sounds equal bilaterally. GASTROINTESTINAL: Abdomen soft. Lower abdominal tenderness. Bowel sounds present. Nondistended. MUSCULOSKELETAL: No obvious deformities. Poor muscle tone and muscle atrophy in the lower extremities. NEUROLOGICAL: Awake and alert. No obvious cranial nerve deficits. Motor grossly within normal limits. Normal speech. PSYCHIATRIC: Appropriate mood and affect; insight and judgment normal. Data Data Last Documented VS Vital Signs Date Time Temp Pulse Resp B/P (MAP) Pulse Ox O2 Delivery O2 Flow Rate FiO2 09/13/17 11:24 96 18 136/87 (103) 98 09/13/17 09:38 99.0 Orders Orders Sepsis Workup Initiated (09/13/17 ) Complete Blood Count With Diff (09/13/17 10:03) Comprehensive Metabolic Panel (09/13/17 10:03) Lactic Acid Sepsis Protocol (09/13/17 10:03) Urinalysis - C+S If Indicated (09/13/17 10:03) Blood Culture (09/13/17 10:03) Blood Glucose (09/13/17 10:03) Ecg Monitoring (09/13/17 10:03) Iv Access Insert/Monitor (09/13/17 10:03) Oximetry (09/13/17 10:03) Oxygen Administration (09/13/17 10:03) Piperacil-Tazo 4.5 Gm Premix (Zosyn 4.5 (09/13/17 10:03) Sodium Chlor 0.9% 1000 Ml Inj (Ns 1000 M (09/13/17 10:15) Morphine Inj (Morphine Inj) (09/13/17 10:15) Prochlorperazine Inj (Compazine Inj) (09/13/17 10:15) Diphenhydramine Inj (Benadryl Inj) (09/13/17 10:15) Ct Abd/Pel W Iv Contrast(Rout) (09/13/17 10:03) Urine Culture (09/13/17 10:35) Iohexol 350 Inj (Omnipaque 350 Inj) (09/13/17 11:16) Labs Laboratory Tests Test 09/13/17 10:14 09/13/17 10:26 09/13/17 10:35 White Blood Count 12.4 TH/MM3 Red Blood Count 5.47 MIL/MM3 Hemoglobin 14.5 GM/DL Hematocrit 44.7 % Mean Corpuscular Volume 81.6 FL Mean Corpuscular Hemoglobin 26.4 PG Mean Corpuscular Hemoglobin Concent 32.4 % Red Cell Distribution Width 20.3 % Platelet Count 366 TH/MM3 Mean Platelet Volume 7.5 FL Neutrophils (%) (Auto) 80.6 % Lymphocytes (%) (Auto) 13.7 % Monocytes (%) (Auto) 5.1 % Eosinophils (%) (Auto) 0.3 % Basophils (%) (Auto) 0.3 % Neutrophils # (Auto) 10.0 TH/MM3 Lymphocytes # (Auto) 1.7 TH/MM3 Monocytes # (Auto) 0.6 TH/MM3 Eosinophils # (Auto) 0.0 TH/MM3 Basophils # (Auto) 0.0 TH/MM3 CBC Comment DIFF FINAL Differential Comment Blood Urea Nitrogen 15 MG/DL Creatinine 0.83 MG/DL Random Glucose 110 MG/DL Total Protein 9.5 GM/DL Albumin 4.0 GM/DL Calcium Level 10.1 MG/DL Alkaline Phosphatase 111 U/L Aspartate Amino Transf (AST/SGOT) 10 U/L Alanine Aminotransferase (ALT/SGPT) 25 U/L Total Bilirubin 0.6 MG/DL Sodium Level 139 MEQ/L Potassium Level 4.0 MEQ/L Chloride Level 104 MEQ/L Carbon Dioxide Level 23.2 MEQ/L Anion Gap 12 MEQ/L Estimat Glomerular Filtration Rate 107 ML/MIN Lactic Acid Level 1.9 mmol/L Urine Color YELLOW Urine Turbidity HAZY Urine pH 6.0 Urine Specific [place] 1.022 Urine Protein TRACE mg/dL Urine Glucose (UA) NEG mg/dL Urine Ketones NEG mg/dL Urine Occult Blood SMALL Urine Nitrite POS Urine Bilirubin NEG Urine Urobilinogen 2.0 MG/DL Urine Leukocyte Esterase LARGE Urine RBC 3 /hpf Urine WBC 34 /hpf Urine Squamous Epithelial Cells <1 /hpf Urine Amorphous Sediment OCC Urine Bacteria MANY /hpf Urine Mucus FEW /lpf Microscopic Urinalysis Comment CATH-CULTURE IND MDM Medical Decision Making Medical Screen Exam Complete: Yes Emergency Medical Condition: Yes Differential Diagnosis Final differential diagnosis of urinary symptoms includes but is not limited to UTI, kidney stone, pyelonephritis, bacterial vaginosis, yeast infection, urinary retention Narrative Course This is a patient who has a neurogenic bladder secondary to a previous thoracic spine injury. He wears a condom catheter. He comes in complaining with probable urinary tract infection because of cloudy urine, lower abdominal pain, poor appetite and nausea. Septic workup is in process. He will be treated empirically with Zosyn. CBC & BMP Diagram 09/13/17 10:14 Total Protein 9.5 H, Albumin 4.0, Calcium Level 10.1, Alkaline Phosphatase 111, Aspartate Amino Transf (AST/SGOT) 10 L, Alanine Aminotransferase (ALT/SGPT) 25, Total Bilirubin 0.6 LA 1.9 UA>>+ nitrite, large LE, 34 WBCs, many bact Last Impressions Abdomen/Pelvis CT 09/13/17 1003 Signed Impressions: CONCLUSION: 1. No discrete findings to account for the patient's left-sided abdominal pain . 2. Severe posttraumatic deformity of the right hip which is undergone previous acetabular reconstruction. 3. Stable right hepatic cyst. 4. Cortical scarring is identified throughout both kidneys when compared to e previous study. 5. Nonobstructing small left renal calculus. 6. Retrievable inferior vena cava filter noted in place. This patient has urinary tract infection but no evidence of sepsis. He also has no evidence of pyelonephritis by CT. He will be discharged home with a prescription for Keflex. He already has a prescription for [place]. Sepsis Criteria SIRS Criteria (2 or more): Heart rate over 90 Diagnosis Primary Impression: UTI (urinary tract infection) Qualified Codes: N39.0 - Urinary tract infection, site not specified Med/Other Pt SpecificInfo: Prescription(s) given Scripts Cephalexin (Keflex) 500 Mg Capsule 500 MG PO TID for Infection for 10 Days, CAP 0 Refills Prov: Diana Jones MD 09/13/17 Disposition: 01 DISCHARGE HOME Condition: Stable Diana Jones MD Sep 13, 2017 10:25
[2017-09-13 10:37] LABS: BASOPHIL % 0.3 % (0.0-2.0); EOSINOPHIL % 0.3 % (0.0-4.0); HEMATOCRIT 44.7 % (39.0-51.0); HEMOGLOBIN 14.5 GM/DL (13.0-17.0); LYMPH % 13.7 % (9.0-44.0); LYMPHOCYTE # 1.7 TH/MM3 (1.0-4.8); MEAN CELL VOLUME 81.6 FL (80.0-100.0); MEAN CORPUSCULAR HEMOGLOBIN 26.4 PG (27.0-34.0); MEAN CORPUSCULAR HGB CONC 32.4 % (32.0-36.0); MEAN PLATELET VOLUME 7.5 FL (7.0-11.0); MONO % 5.1 % (0.0-8.0); MONOCYTE # 0.6 TH/MM3 (0-0.9); NEUT % 80.6 % (16.0-70.0); PLATELET COUNT 366 TH/MM3 (150-450); RED BLOOD COUNT 5.47 MIL/MM3 (4.50-5.90); RED CELL DISTRIBUTION WIDTH 20.3 % (11.6-17.2); WHITE BLOOD COUNT 12.4 TH/MM3 (4.0-11.0)
[2017-09-13 10:56] LABS: AST (GOT) 10 U/L (15-37); BICARBONATE 23.2 MEQ/L (21.0-32.0); BLOOD UREA NITROGEN 15 MG/DL (7-18); CALCIUM 10.1 MG/DL (8.5-10.1); CHLORIDE 104 MEQ/L (98-107); CREATININE 0.83 MG/DL (0.60-1.30); GLOMERULAR FILTRATION RATE 107 ML/MIN (>89); GLUCOSE,RANDOM 110 MG/DL (74-106); SODIUM (NA) 139 MEQ/L (136-145)
[2017-09-13 10:57] LABS: ALT (GPT) 25 U/L (12-78)
[2017-09-13 10:59] LABS: AMORPHOUS SEDIMENT, URINE OCC; BACTERIA, URINE MANY /hpf; BILIRUBIN, URINE NEG (NEG); BLOOD, URINE SMALL (NEG); GLUCOSE,URINE NEG (NEG); KETONE, URINE NEG (NEG); MUCUS URINE FEW /lpf (OCC); NITRITE,URINE POS (NEG); SQUAMOUS EPITHELIAL CELL URINE <1 /hpf (0-5); URINE COLOR YELLOW (YELLW/STRAW); URINE LEUKOCYTE ESTERASE LARGE (NEG)
[2017-09-13 10:59] LABS: ALKALINE PHOSPHATASE 111 U/L (45-117); TOTAL BILIRUBIN ADULT 0.6 MG/DL (0.2-1.0); TOTAL PROTEIN 9.5 GM/DL (6.4-8.2)
[2017-09-13] MEDS ORDERED: IOHEXOL 350 MG/ML 10 ML VIAL (for RAD DIAG) IVCONTRAST ONE (11:16)
[2017-09-13 11:24] VITALS: BP 136/87; PULSE 96; RESP 18; O2SAT 98
--- NOTE | 2017-09-13 11:41 | RADRPT ---
EXAM DATE: 09/13/2017 11:16 AM EDT AGE/SEX: 32 years / Male INDICATIONS: Left sided abdominal pain, dark urine. CLINICAL DATA: This is the patient's initial encounter. Patient reports that signs and symptoms have been present for 2 days and indicates a pain score of 6/10. MEDICAL/SURGICAL HISTORY: Renal calculi. Neurogenic bladder. . Multiple fracture repairs. ORAL CONTRAST: No oral contrast ingested. RADIATION DOSE: 11.25 CTDI (mGy) COMPARISON: synapse default, CT ABDOMEN & PELVIS W CONTRAST, 02/14/2016. . TECHNIQUE: Multiple contiguous axial images were obtained through the abdomen and pelvis following b olus infusion of 98 ml Omnipaque 350 (iohexol) nonionic water-soluble contrast as a single exam dos e. No oral contrast ingested. Using automated exposure control and adjustment of the mA and/or kV ac cording to patient size, the radiation dose was kept as low as reasonably achievable to obtain optima l diagnostic quality images. FINDINGS: Lower Lungs: The visualized lower lungs are clear. Liver: 12 mm hypodense structure in the right hepatic lobe characteristic of a small cyst is stable c ompared to previous study in 2016. There is otherwise unremarkable. There is no evidence of biliary d uct dilatation. There is no evidence of cholelithiasis. Spleen: Homogeneous density without enlargement. Pancreas: Unremarkable without mass or calcification. Kidneys: Focal areas of cortical thinning have developed throughout both kidneys compared to the pre vious study. There is a small nonobstructing calculus in the lower pole the left kidney. There is no evidence of hydronephrosis. Adrenal Glands: Unremarkable. Aorta: The aorta and proximal iliac vessels are grossly unremarkable without aneurysmal dilation. Bowel/Mesentery: The bowel loops are grossly unremarkable. The cecum and sigmoid colon have a normal configuration. Abdominal Wall: Intact. Retroperitoneum: No evidence of adenopathy in the retrocrural, para-aortic, or deep pelvic regions. Inferior vena cava filter is noted in place. Bladder: Contours are smooth. Reproductive Organs: No abnormal masses or calcifications seen. Inguinal: The inguinal region is unremarkable without evidence of adenopathy. Bony Structures: Severe deformity of the right hip is noted. There are superior dislocation of the f emoral head in relation to the acetabulum. The acetabulum has been reconstructed. Plates and screws a re noted in place. Persistent soft tissue swelling and fluid is seen surrounding the right hip. CONCLUSION: 1. No discrete findings to account for the patient's left-sided abdominal pain. 2. Severe posttraumatic deformity of the right hip which is undergone previous acetabular reconstruc tion. 3. Stable right hepatic cyst. 4. Cortical scarring is identified throughout both kidneys when compared to the previous study. 5. Nonobstructing small left renal calculus. 6. Retrievable inferior vena cava filter noted in place. Electronically signed by: Janak John MD 09/13/2017 11:40 AM EDT
[2017-09-13] MEDS ORDERED: CEPH-460 PO (11:53)
[2017-09-13 12:51] VITALS: BP 122/75
== END 2017-09-13 12:55 | disposition home or self-care (01) ==
LOC: NEPE 09:31
DX: N39.0 Urinary tract infection, site not specified (principal); R10.30 Lower abdominal pain, unspecified; R11.0 Nausea; R63.0 Anorexia; N20.0 Calculus of kidney; K76.89 Other specified diseases of liver; I10 Essential (primary) hypertension; G82.20 Paraplegia, unspecified; F17.220 Nicotine dependence, chewing tobacco, uncomplicated; Z86.718 Personal history of other venous thrombosis and embolism; Z87.440 Personal history of urinary (tract) infections; Z88.1 Allergy status to other antibiotic agents; Z79.899 Other long term (current) drug therapy
CPT/HCPCS: 74177; 80053; 81001; 83605; 85025; 87040; 87077; 87086; 87186; 96365; 96375; 99284; J0780; J1200; J2270; J2543; J7030; Q9967

== ENCOUNTER 2017-09-24 07:08 | Inpatient (IN) ==
[2017-09-30] MEDS ORDERED: Acetaminophen 500 MG Tablet PO PRN (00:01)
[2017-09-30] MEDS ORDERED: Morphine Inj 4 MG/ML Vial ONE (00:52)
[2017-09-30] MEDS: Morphine Inj 4 MG/ML Vial IV.PUSH PRN ×4 (06:35→17:53)
[2017-09-30] MEDS: buPROPion 150 MG 12 HR Tablet PO SCH (08:13)
[2017-09-30 08:53] LABS: Baso % (Auto) 0.6 % (0.0-2.0); Eos # (Auto) 0.2 th/mm3 (0.0-0.4); Eos % (Auto) 3.8 % (0.0-4.0); Hematocrit 39.8 % (39.0-51.0); Hemoglobin 12.6 gm/dL (13.0-17.0); Lymph # (Auto) 1.7 th/mm3 (1.0-4.8); Lymph % (Auto) 35.5 % (9.0-44.0); Mean Corpuscular HGB Conc 31.7 % (32.0-36.0); Mean Corpuscular Hemoglobin 26.5 pg (27.0-34.0); Mean Corpuscular Volume 83.5 fL (80.0-100.0); Mean Platelet Volume 7.8 fL (7.0-11.0); Mono # (Auto) 0.3 th/mm3 (0.0-0.9); Mono % (Auto) 6.5 % (0.0-8.0); Neut # (Auto) 2.6 th/mm3 (1.8-7.7); Neut % (Auto) 53.6 % (16.0-70.0); Platelet Count 334 th/mm3 (150-450); Red Blood Count 4.77 mil/mm3 (4.50-5.90); Red Cell Distribution Width 19.5 % (11.6-17.2); White Blood Count 4.8 th/mm3 (4.0-11.0)
[2017-09-30] MEDS ORDERED: Bisacodyl 10 MG Supp RECTAL PRN (09:00)
[2017-09-30] MEDS ORDERED: Furosemide 40 MG Tablet PO SCH (09:00)
--- NOTE | 2017-09-30 11:04 | P.PNNP ---
Subjective Interval history: No shortness of breath. Edema present. <Elma Childress - Last Filed: 09/30/17 10:56> Physical Exam Vital signs: Vital Signs 09/29/17 20:00 09/30/17 04:00 09/30/17 08:00 Temperature 98.2 F 98.1 F 97.4 F L Pulse Rate 89 86 68 Respiratory Rate 17 16 Blood Pressure 133/80 130/75 114/60 Pulse Oximetry 95 95 100 09/30/17 08:14 Temperature Pulse Rate Respiratory Rate 16 Blood Pressure Pulse Oximetry Intake & Output 09/29/17 09/30/17 09/30/17 18:59 06:59 18:59 Output Total 1800 / 1800 Balance -1800 / -1800 Weight 145 kg 142.7 kg Output: Urine 1800 / 1800 Other: Date of Last Bowel Movement 09/27/17 - Constitutional no acute distress - Routine HEENT Exam Head: Present: normocephalic - Routine Neck Exam Present: supple. Absent: JVD - Routine Respiratory Exam Present: CTA bilaterally. Absent: rhonchi, wheezes, crackles - Routine Cardiovascular Exam Present: RRR - Routine Abdominal Exam Present: soft, normoactive bowel sounds - Routine Extremities Exam Present: edema - Routine Skin Exam Present: warm - Routine Neurological Exam Present: oriented X3 <Elma Childress - Last Filed: 09/30/17 10:56> Vital signs: Vital Signs 09/29/17 20:00 09/30/17 04:00 09/30/17 08:00 Temperature 98.2 F 98.1 F 97.4 F L Pulse Rate 89 86 68 Respiratory Rate 17 16 Blood Pressure 133/80 130/75 114/60 Pulse Oximetry 95 95 100 09/30/17 08:14 09/30/17 11:57 09/30/17 12:00 Temperature 98 F Pulse Rate 75 Respiratory Rate 16 18 18 Blood Pressure 140/87 Pulse Oximetry 97 Intake & Output 09/29/17 09/30/17 09/30/17 18:59 06:59 18:59 Output Total 1800 / 1800 Balance -1800 / -1800 Weight 145 kg 142.7 kg Output: Urine 1800 / 1800 Other: Date of Last Bowel Movement 09/27/17 09/27/17 <Chi Mercedes - Last Filed: 09/30/17 16:31> Assessment and Plan - Assessment (1) Acute kidney injury Code(s): N17.9 - Acute kidney failure, unspecified Status: Acute Plan: Patient has nephrotic range proteinuria we will do ADRIANA complements Anca level Patient has neurogenic bladder as well Kidney US with bilateral moderate hydronephrosis. C3 normal C4 mildly elevated 45 and ANCA is pending 24 hour urine with 6859 mg/24 H Etiology of proteinuria could be because of the neurogenic bladder/retention and uti r/o autoimmune disease Labs are pending Will add low dose losartan for proteinuria ( (2) Proteinuria due to type 1 diabetes mellitus Code(s): E10.29 - Type 1 diabetes mellitus with other diabetic kidney complication; R80.9 - Proteinuria, unspecified Status: Acute Plan: P (3) Proteinuria Code(s): R80.9 - Proteinuria, unspecified Status: Acute (4) Microscopic hematuria Code(s): R31.29 - Other microscopic hematuria Status: Acute (5) Neurogenic bladder Code(s): N31.9 - Neuromuscular dysfunction of bladder, unspecified Status: Acute <Elma Childress - Last Filed: 09/30/17 10:56> - Assessment (1) Acute kidney injury Code(s): N17.9 - Acute kidney failure, unspecified Status: Acute Plan: Patient seen and examined, agree with above. Will need repeat urine protein after the infection is treatment. (2) Proteinuria due to type 1 diabetes mellitus Code(s): E10.29 - Type 1 diabetes mellitus with other diabetic kidney complication; R80.9 - Proteinuria, unspecified Status: Acute (3) Proteinuria Code(s): R80.9 - Proteinuria, unspecified Status: Acute (4) Microscopic hematuria Code(s): R31.29 - Other microscopic hematuria Status: Acute (5) Neurogenic bladder Code(s): N31.9 - Neuromuscular dysfunction of bladder, unspecified Status: Acute <Chi Mercedes - Last Filed: 09/30/17 16:31>
[2017-09-30 12:29] LABS: Anion Gap 10 meq/L (5-15); Carbon Dioxide 30.3 meq/L (21.0-32.0); Chloride 100 meq/L (98-107); Potassium 4.1 meq/L (3.5-5.1); Sodium 140 meq/L (136-145)
[2017-09-30 12:30] LABS: Blood Urea Nitrogen 14 mg/dL (7-18); Glomerular Filtration Rate Greater Than 89 mL/min (>89); Glucose,Random 82 mg/dL (74-106); Magnesium 2.7 mg/dL (1.5-2.5)
--- NOTE | 2017-09-30 15:28 | P.PNIM ---
Subjective Interval history: No new complaints. Physical Exam Vital signs: Vital Signs 09/29/17 20:00 09/30/17 04:00 09/30/17 08:00 Temperature 98.2 F 98.1 F 97.4 F L Pulse Rate 89 86 68 Respiratory Rate 17 16 Blood Pressure 133/80 130/75 114/60 Pulse Oximetry 95 95 100 09/30/17 08:14 09/30/17 11:57 09/30/17 12:00 Temperature 98 F Pulse Rate 75 Respiratory Rate 16 18 18 Blood Pressure 140/87 Pulse Oximetry 97 Intake & Output 09/29/17 09/30/17 09/30/17 18:59 06:59 18:59 Output Total 1800 / 1800 Balance -1800 / -1800 Weight 145 kg 142.7 kg Output: Urine 1800 / 1800 Other: Date of Last Bowel Movement 09/27/17 09/27/17 Narrative: GENERAL: This is a well-nourished, well-developed patient, in no apparent distress. CARDIOVASCULAR: Regular rate and rhythm without murmurs, gallops, or rubs. RESPIRATORY: Clear to auscultation. Breath sounds equal bilaterally. No wheezes , rales, or rhonchi. GASTROINTESTINAL: Abdomen soft, non-tender, nondistended. Normal active bowel sounds MUSCULOSKELETAL: b/l LE edema NEURO: Alert & Oriented x3, LE paralysis. - Urinary Catheter Management Indwelling Urethral Catheter Cath placed during this visit: no Urethral indwelling: Yes Reason for continuing: Acute urinary retention Results - Labs CBC & Chem 7: 09/30/17 07:57 10/01/17 04:59 Laboratory Results - last 24 hr 09/27/17 09/27/17 09/28/17 07:16 15:30 08:34 WBC RBC Hgb Hct MCV MCH MCHC RDW Plt Count MPV Neut % (Auto) Lymph % (Auto) Ada % (Auto) Eos % (Auto) Baso % (Auto) Neut # (Auto) Lymph # (Auto) Ada # (Auto) Eos # (Auto) Baso # (Auto) WBC Differential Differential Comment Sodium 137 137 Potassium 3.6 3.9 Chloride 98 97 L Carbon Dioxide 28.8 29.1 Anion Gap 10 11 BUN 14 17 Creatinine 0.86 0.93 Estimated GFR 103 94 Random Glucose 91 88 Calcium 8.4 L 8.5 Magnesium Ur 24 Hour Volume 4800 Ur Total Protein 24 Hr 6859 H Complement C3 Complement C4 Hepatitis A IgM Ab Hep Bs Antigen Hep B Core IgM Ab Hep C IgG Ab 09/29/17 09/29/17 09/29/17 07:13 07:13 07:13 WBC RBC Hgb Hct MCV MCH MCHC RDW Plt Count MPV Neut % (Auto) Lymph % (Auto) [place] % (Auto) Eos % (Auto) Baso % (Auto) Neut # (Auto) Lymph # (Auto) Ada # (Auto) Eos # (Auto) Baso # (Auto) WBC Differential Differential Comment Sodium 138 Potassium 3.7 Chloride 98 Carbon Dioxide 34.6 H Anion Gap 5 BUN 17 Creatinine 0.98 Estimated GFR 89 Random Glucose 91 Calcium 8.7 Magnesium Ur 24 Hour Volume Ur Total Protein 24 Hr Complement C3 144 Complement C4 45 H Hepatitis A IgM Ab NONREACTIVE Hep Bs Antigen NONREACTIVE Hep B Core IgM Ab NONREACTIVE Hep C IgG Ab NONREACTIVE 09/30/17 09/30/17 07:57 07:57 WBC 4.8 RBC 4.77 Hgb 12.6 L Hct 39.8 MCV 83.5 MCH 26.5 L MCHC 31.7 L RDW 19.5 H Plt Count 334 MPV 7.8 Neut % (Auto) 53.6 Lymph % (Auto) 35.5 Ada % (Auto) 6.5 Eos % (Auto) 3.8 Baso % (Auto) 0.6 Neut # (Auto) 2.6 Lymph # (Auto) 1.7 Ada # (Auto) 0.3 Eos # (Auto) 0.2 Baso # (Auto) 0.0 WBC Differential . Differential Comment Auto diff final Sodium 140 Potassium 4.1 Chloride 100 Carbon Dioxide 30.3 Anion Gap 10 BUN 14 Creatinine 0.87 Estimated GFR Greater than 89 Random Glucose 82 Calcium 9.0 Magnesium 2.7 H Ur 24 Hour Volume Ur Total Protein 24 Hr Complement C3 Complement C4 Hepatitis A IgM Ab Hep Bs Antigen Hep B Core IgM Ab Hep C IgG Ab Assessment and Plan - Assessment (1) Urinary tract infection due to ESBL Klebsiella Code(s): N39.0 - Urinary tract infection, site not specified; B96.89 - Other specified bacterial agents as the cause of diseases classified elsewhere Status: Acute Plan: (1) Urinary tract infection ICD Codes: N39.0 - Urinary tract infection, site not specified Status: Acute Plan: Urinary tract infection Neurogenic bladder Paraplegic Thoracic spinal cord injury Severe edema hips/legs/scrotum, concern for nephrotic range proteinuria - This is a 32-year-old paraplegic patient presents to emergency department with tense bilateral lower extremity edema after starting Keflex for possible UTI - Urinalysis reviewed and reveals protein nitrates leukocyte esterase white blood cells clumps urine bacteria and urine mucus - Urine Culture (09/24) --> ESBL Klebsiella - Consulted ID - Pt is on Ertapenem per ID - Repeat Urine Culture (09/28) --> ESBL Klebsiella - ID recommending to continue IV antibiotic through the weekend and repeat the urine again on 09/30/17. - Pt had been on iv Lasix for severe edema and was switched to PO Lasix on . - 24hr urine with over 6 gm protein. - Nephrology consulted and felt that the etiology of proteinuria could be because of the neurogenic bladder and UTI but will need to r/o autoimmune disease - Renal US with Bilateral moderate hydronephrosis - C3 normal, C4 mildly elevated at 45 and ANCA is pending. - Vargas catheter in place - DVT prophylaxis with Lovenox 09/30/17 - obtain repeat UA/Cx - continue IV Ertapenem - change lasix to IV - repeat Renal US 10/01 to reevaluate hydronephrosis - will further d/w ID 10/01 - discuss further with Nephrology 10/01 Sacral Wound - Pt with left and right ischial wounds - Wound care following and recommended: - Please cleanse wounds to bilateral ischial areas with normal saline or wound cleanser and pat dry. Apply wound VAC and bridge to Anterior thighs with Y connector. - Change dressing Sunday and Sunday this week and then change Sunday and Sunday - Please cleanse wounds to bilateral heels with normal saline or wound cleanser and pat dry. Apply Optifoam 4x4 gentle border to wounds and change every 3 days or PRN if saturated or dislodged. (2) Neurogenic bladder ICD Codes: N31.9 - Neuromuscular dysfunction of bladder, unspecified Status: Acute (3) Sacral wound ICD Codes: S31.000A - Unspecified open wound of lower back and pelvis without penetration into retroperitoneum, initial encounter Status: Acute (4) Paraplegia ICD Codes: G82.20 - Paraplegia, unspecified Status: Chronic (5) Thoracic spinal cord injury ICD Codes: S24.109A - Unspecified injury at unspecified level of thoracic spinal cord, initial encounter Status: Chronic
--- NOTE | 2017-09-30 16:26 | XR ---
EXAM DATE: 09/30/2017 4:23 PM EDT AGE/SEX: 32 years / Male INDICATIONS: Upper left abdominal pain. CLINICAL DATA: This is the patient's initial encounter. Patient reports that signs and symptoms have been present for 3 days and indicates a pain score of 3/10. MEDICAL/SURGICAL HISTORY: . Hypertension. Paraplegia. Deep vein thrombosis. Kidney stones. Urin cher tract infection. Anxiety. Depression. MRSA. . . Spinal surgery. Neurogenic bladder. Left femur surgery. Back surgery. Right hip surgery. Wound vac. COMPARISON: No prior exams available for comparison. FINDINGS: Using hardware is noted extending from T10 through L1. Hardware is also noted within the right aceta bulum and left proximal femur. Inferior vena cava filter is noted. There is no bowel obstruction, ile us or perforation. CONCLUSION: No evidence of bowel obstruction, ileus or perforation. Electronically signed by: Timi Barbosa MD 09/30/2017 4:24 PM EDT
[2017-09-30] MEDS: Enoxaparin Inj 40 MG/0.4 ML Syringe SQ SCH (17:55)
[2017-09-30] MEDS: Docusate Sodium 100 MG Capsule PO SCH (20:31)
[2017-09-30 20:32] LABS: Bacteria,Urine Many /hpf; Bilirubin,Urine Negative (Negative); Clarity,Urine Turbid (Clear); Color,Urine Yellow (Yellw/Straw); Glucose,Urine (UA) Negative (Negative); Leukocyte Esterase,Urine Large (Negative); Nitrite,Urine Negative (Negative); Specific Gravity,Urine 1.013 (1.002-1.035)
[2017-10-01 06:03] LABS: Anion Gap 6 meq/L (5-15); Blood Urea Nitrogen 13 mg/dL (7-18); Calcium 8.7 mg/dL (8.5-10.1); Carbon Dioxide 34.6 meq/L (21.0-32.0); Chloride 99 meq/L (98-107); Glomerular Filtration Rate Greater Than 89 mL/min (>89); Glucose,Random 99 mg/dL (74-106); Potassium 3.8 meq/L (3.5-5.1); Sodium 140 meq/L (136-145)
--- NOTE | 2017-10-01 08:52 | US ---
EXAM DATE: 10/01/2017 8:43 AM EDT AGE/SEX: 32 years / Male INDICATIONS: Follow-up for hydronephrosis. CLINICAL DATA: This is the patient's subsequent encounter. Patient reports that signs and symptoms h ave been present for 3 days and indicates a pain score of 6/10. MEDICAL/SURGICAL HISTORY: . Hypertension. Paraplegia. Deep vein thrombosis. Kidney stones. Urin cher tract infection. Anxiety. Depression. MRSA. . Spinal surgery. Neurogenic bladder. Left femur danilo alvina. Back surgery. Right hip surgery. Wound vac. [place] [facility] [place]. . MEASUREMENTS: Right Kidney:__9.8 x 6.1 x 5.3 cm Left Kidney:__11.1 x 4.5 x 5.9 cm FINDINGS: Right Kidney: Increased echotexture. No mass or hydronephrosis. Left Kidney: Increased echotexture. No mass or hydronephrosis. Bladder: Vargas catheter is present. Bladder decompressed. Other: None. CONCLUSION: 1. The previously noted bilateral hydronephrosis has resolved. Electronically signed by: Benedict Holliday MD 10/01/2017 8:51 AM EDT
[2017-10-01] MEDS: buPROPion 150 MG 12 HR Tablet PO SCH (10:02)
[2017-10-01] MEDS: Docusate Sodium 100 MG Capsule PO SCH ×3 (10:02→20:40)
--- NOTE | 2017-10-01 11:06 | P.PNNP ---
Subjective Interval history: Patient with no complaints. Denies any shortness of breath. <Elma Childress - Last Filed: 10/01/17 11:00> Physical Exam Vital signs: Vital Signs 09/30/17 11:57 09/30/17 12:00 09/30/17 16:00 Temperature 98 F 97.7 F Pulse Rate 75 72 Respiratory Rate 18 18 18 Blood Pressure 140/87 119/71 Pulse Oximetry 97 96 09/30/17 16:38 09/30/17 20:00 09/30/17 20:32 Temperature 97.7 F Pulse Rate 73 Respiratory Rate 16 18 18 Blood Pressure 125/65 Pulse Oximetry 98 10/01/17 00:00 10/01/17 04:00 10/01/17 05:45 Temperature 97.8 F 98.5 F Pulse Rate 73 77 Respiratory Rate 16 18 18 Blood Pressure 115/64 119/66 Pulse Oximetry 95 96 10/01/17 08:00 10/01/17 10:03 Temperature 97.6 F Pulse Rate 66 Respiratory Rate 20 20 Blood Pressure 114/86 Pulse Oximetry Intake & Output 09/30/17 10/01/17 10/01/17 18:59 06:59 18:59 Intake Total 2400 / 2400 Output Total 2200 / 2200 Balance 200 / 200 Intake: Oral 2400 / 2400 Output: Urine Amount (Catheter) 2200 / 2200 Indwelling Urethral Catheter 2200 / 2200 Other: Date of Last Bowel Movement 09/27/17 09/27/17 # Bowel Movements 0 - Constitutional no acute distress, obese - Routine HEENT Exam Head: Present: normocephalic ENT: Present: mucous membranes moist - Routine Neck Exam Present: supple. Absent: JVD - Routine Respiratory Exam Present: CTA bilaterally. Absent: rales, rhonchi, crackles - Routine Cardiovascular Exam Present: RRR - Routine Abdominal Exam Present: soft, normoactive bowel sounds - Routine Skin Exam Present: wounds - Routine Neurological Exam Present: alert, oriented X3 - Detailed Neurological Exam: Coma Scale Eye Opening: Spontaneous - Routine Psychiatric Exam Present: normal affect, cooperative - Urinary Catheter Management Indwelling Urethral Catheter Cath placed during this visit: no Urethral indwelling: Yes Reason for continuing: Acute urinary retention <Elma Childress - Last Filed: 10/01/17 11:00> Vital signs: Vital Signs 10/01/17 00:00 10/01/17 04:00 10/01/17 05:45 Temperature 97.8 F 98.5 F Pulse Rate 73 77 Respiratory Rate 16 18 18 Blood Pressure 115/64 119/66 Pulse Oximetry 95 96 10/01/17 08:00 10/01/17 10:03 10/01/17 12:00 Temperature 97.6 F 98.1 F Pulse Rate 66 76 Respiratory Rate 20 20 20 Blood Pressure 114/86 123/60 Pulse Oximetry 96 98 10/01/17 14:05 10/01/17 15:48 10/01/17 16:00 Temperature 97.7 F Pulse Rate 66 Respiratory Rate 20 18 20 Blood Pressure 106/76 Pulse Oximetry 100 10/01/17 17:56 10/01/17 20:00 Temperature 97.8 F Pulse Rate 73 Respiratory Rate 9 L 18 Blood Pressure 109/60 Pulse Oximetry Intake & Output 10/01/17 10/01/17 10/02/17 06:59 18:59 06:59 Intake Total 2400 / 2400 600 / 600 Output Total 2200 / 2200 Balance 200 / 200 600 / 600 Intake: Oral 2400 / 2400 600 / 600 Output: Urine Amount (Catheter) 2200 / 2200 Indwelling Urethral Catheter 2200 / 2200 Other: Bladder Irrigation Fluid - Amount Drained Indwelling Urethral Catheter 1,800 Date of Last Bowel Movement 09/27/17 09/27/17 # Bowel Movements 0 - Urinary Catheter Management Indwelling Urethral Catheter Cath placed during this visit: no <Chi Mercedes - Last Filed: 10/01/17 22:18> Assessment and Plan - Assessment (1) Acute kidney injury Code(s): N17.9 - Acute kidney failure, unspecified Status: Acute Plan: Patient has nephrotic range proteinuria we will do ADRIANA complements Anca level Patient has neurogenic bladder as well Kidney US with bilateral moderate hydronephrosis. Repeat renal ultrasound with no hydronephrosis C3 normal C4 mildly elevated 45 and ANCA is pending 24 hour urine with 6859 mg/24 H Etiology of proteinuria could be because of the neurogenic bladder/retention and uti r/o autoimmune disease On losartan for proteinuria Will need repeat urine protein after the infection is treatment. ( (2) Proteinuria due to type 1 diabetes mellitus Code(s): E10.29 - Type 1 diabetes mellitus with other diabetic kidney complication; R80.9 - Proteinuria, unspecified Status: Acute Plan: P (3) Proteinuria Code(s): R80.9 - Proteinuria, unspecified Status: Acute (4) Microscopic hematuria Code(s): R31.29 - Other microscopic hematuria Status: Acute (5) Neurogenic bladder Code(s): N31.9 - Neuromuscular dysfunction of bladder, unspecified Status: Acute <Elma Childress - Last Filed: 10/01/17 11:00> - Assessment (1) Acute kidney injury Code(s): N17.9 - Acute kidney failure, unspecified Status: Acute (2) Proteinuria due to type 1 diabetes mellitus Code(s): E10.29 - Type 1 diabetes mellitus with other diabetic kidney complication; R80.9 - Proteinuria, unspecified Status: Acute (3) Proteinuria Code(s): R80.9 - Proteinuria, unspecified Status: Acute (4) Microscopic hematuria Code(s): R31.29 - Other microscopic hematuria Status: Acute (5) Neurogenic bladder Code(s): N31.9 - Neuromuscular dysfunction of bladder, unspecified Status: Acute - Attending Attestation Patient seen and examined, agree with above. Continue diuretics, will need repeat urine protein after completing the treatment for UTI. <Chi Mercedes - Last Filed: 10/01/17 22:18>
[2017-10-01] MEDS: Morphine Inj 4 MG/ML Vial IV.PUSH PRN ×3 (12:26→18:31)
--- NOTE | 2017-10-01 12:47 | P.PNWCN ---
Wound Care Nurse Consult Description: Patient seen for wound VAC dressing change to bilateral ischial area Communicated with: KIA Ryan Wound/Pressure Injury - Wound Left Ischium Wound Staging: Stage IV Wound Assessment: Ongoing Wound Type: Pressure Injury Is This a Chronic Wound: Yes Requested from Provider a Wound Care Consult: Yes (Wound care nurse following) Length: 1.3 (cm) Width: 0.6 (cm) Depth: 5.3 (cm) Wound Bed Appearance: Tunneling/Undermining (Tunnel at 2'clock measuring ~8cm) Wound Bed Appearance: Unable to visualize entire wound bed due to size and depth of wound. Wound bed that is visible is 100% red non granulation tissue. Wound is draining minimal sero-sanguinous drainage that has a mild musty odor. Surrounding Tissue Appearance: [place] Surrounding Tissue Temperature: Warm Drainage Description: Serosanguinous Drainage Amount: Minimal Drainage Odor: Slight Odor (mild musty odor) Dressing Status: Changed (See wound VAC) Cleansing Solution: Skintegrity wound cleanser Wound Packing Type: Woundvac Sponge Wound Dressing Change Date: 10/01/17 Wound Margin Description: Wound margins are noted with epibole Right Ischium Wound Staging: Stage IV Wound Assessment: Ongoing Wound Type: Pressure Injury Is This a Chronic Wound: Yes Requested from Provider a Wound Care Consult: Yes (Wound care nurse is following ) Length: 1.3 (cm) Width: 0.6 (cm) Depth: 5.6 (cm) Wound Bed Appearance: Tunneling/Undermining (9cm tunneled area at 7 o'clock) Wound Bed Appearance: Unable to visualize entire wound bed due to size and depth of wound. Wound bed that is visible is 100% red non granulation tissue. Wound is draining minimal sero-sanguinous drainage that has a mild musty odor. Surrounding Tissue Appearance: [place] Surrounding Tissue Temperature: Warm Drainage Description: Serosanguinous Drainage Amount: Minimal Drainage Odor: Slight Odor (mild musty odor) Dressing Status: Dry & Intact, Changed Cleansing Solution: skintegrity wound cleanser Wound Packing Type: Woundvac Sponge Wound Dressing Change Date: 10/01/17 Wound Margin Description: Wound margins are noted with ebipole Left Heel Wound Staging: Stage II Wound Assessment: Ongoing Wound Type: Pressure Injury Is This a Chronic Wound: No Wound Bed Appearance: [place] Wound Bed Appearance: Wound is resolving and noted with 100% pink tissue with surround light purple discoloration Surrounding Tissue Temperature: Warm Drainage Description: Serosanguinous Drainage Amount: Scant Drainage Odor: No Odor Dressing Status: Changed Cleansing Solution: skintegrity wound cleanser Primary Dressing: Allevyn gentle border foam dressing Wound Dressing Change Date: 10/01/17 Wound Margin Description: Wound margins are attached and open Right Heel Wound Staging: Stage II Wound Type: Pressure Injury Is This a Chronic Wound: Yes Requested from Provider a Wound Care Consult: Yes (Wound care nurse is following ) Wound Bed Appearance: [place] Wound Bed Appearance: 100% pink partial thickness. Surrounding Tissue Appearance: [place] Surrounding Tissue Temperature: Warm Drainage Description: Serosanguinous Drainage Amount: Scant Drainage Odor: Slight Odor (Mild musty odor) Dressing Status: Changed Cleansing Solution: Skintegrity wound cleanser Primary Dressing: Allevyn gentle border adhesive foam dressing Wound Dressing Change Date: 10/01/17 Wound Margin Description: Wound margins are open and attached Wound Vac - Wound Vac Left Ischium Pressure Setting (mmHg): 125 (mm/Hg) Mode Setting: Continuous Drainage Description: Serosanguinous Foam type: Black Right Ischium Pressure Setting (mmHg): 125 (mm/Hg) Mode Setting: Continuous Drainage Description: Serosanguinous Foam type: Black - Additional Information Wound VAc dressing was changed today.
[2017-10-01] MEDS ORDERED: Sod Phosphate/Sod Biphosphate (Adult) Enema 133 ML Bottle RECTAL PRN (15:47)
--- NOTE | 2017-10-01 15:57 | P.PNIM ---
Subjective Interval history: No new complaints. Physical Exam Vital signs: Vital Signs 09/30/17 16:00 09/30/17 16:38 09/30/17 20:00 Temperature 97.7 F 97.7 F Pulse Rate 72 73 Respiratory Rate 18 16 18 Blood Pressure 119/71 125/65 Pulse Oximetry 96 98 09/30/17 20:32 10/01/17 00:00 10/01/17 04:00 Temperature 97.8 F 98.5 F Pulse Rate 73 77 Respiratory Rate 18 16 18 Blood Pressure 115/64 119/66 Pulse Oximetry 95 96 10/01/17 05:45 10/01/17 08:00 10/01/17 10:03 Temperature 97.6 F Pulse Rate 66 Respiratory Rate 18 20 20 Blood Pressure 114/86 Pulse Oximetry 96 10/01/17 12:00 10/01/17 14:05 Temperature 98.1 F Pulse Rate 76 Respiratory Rate 20 20 Blood Pressure 123/60 Pulse Oximetry 98 Intake & Output 09/30/17 10/01/17 10/01/17 18:59 06:59 18:59 Intake Total 100 / 100 2400 / 2400 600 / 600 Output Total 2200 / 2200 Balance 100 / 100 200 / 200 600 / 600 Intake: IV 100 / 100 INVanz Inj 1,000 MG In NS Inj 100 / 100 100 ML @ 100 mls/hr IV.SIG Q24H YINA Rx#:[id number] Oral 2400 / 2400 600 / 600 Output: Urine Amount (Catheter) 2200 / 2200 Indwelling Urethral Catheter 2200 / 2200 Other: Date of Last Bowel Movement 09/27/17 09/27/17 09/27/17 # Bowel Movements 0 Narrative: GENERAL: This is a well-nourished, well-developed patient, in no apparent distress. CARDIOVASCULAR: Regular rate and rhythm without murmurs, gallops, or rubs. RESPIRATORY: Clear to auscultation. Breath sounds equal bilaterally. No wheezes , rales, or rhonchi. GASTROINTESTINAL: Abdomen soft, non-tender, nondistended. Normal active bowel sounds MUSCULOSKELETAL: 2+ b/l LE edema NEURO: Alert & Oriented x3, b/l LE paralysis - Urinary Catheter Management Indwelling Urethral Catheter Cath placed during this visit: no Urethral indwelling: Yes Results - Labs CBC & Chem 7: 09/30/17 07:57 10/01/17 04:59 Laboratory Results - last 24 hr 09/30/17 10/01/17 16:30 04:59 Sodium 140 Potassium 3.8 Chloride 99 Carbon Dioxide 34.6 H Anion Gap 6 BUN 13 Creatinine 0.87 Estimated GFR Greater than 89 Random Glucose 99 Calcium 8.7 Urine Color Yellow Urine Clarity Turbid H Urine pH 7.0 Ur Specific [place] 1.013 Urine Protein 100 H Urine Glucose (UA) Negative Urine Ketones Negative Urine Occult Blood Moderate H Urine Nitrate Negative Urine Bilirubin Negative Urine Urobilinogen 2.0 H Ur Leukocyte Esterase Large H Urine RBC 55 H Urine WBC Urine WBC Clumps Many H Urine Bacteria Many H Micro UA Comment Cath-culture ind Urine Culture Comments Cath-cult indicated Microbiology 09/30/17 16:30 Catheterized Urine Urine Culture - Preliminary gram negative rods - Imaging Impressions Abdomen X-Ray 09/30/17 00:00 CONCLUSION: No evidence of bowel obstruction, ileus or perforation. Abdomen/Bladder Ultrasound 10/01/17 08:00 CONCLUSION: 1. The previously noted bilateral hydronephrosis has resolved. Assessment and Plan - Assessment (1) Urinary tract infection due to ESBL Klebsiella Code(s): N39.0 - Urinary tract infection, site not specified; B96.89 - Other specified bacterial agents as the cause of diseases classified elsewhere Status: Acute Plan: (1) Urinary tract infection ICD Codes: N39.0 - Urinary tract infection, site not specified Status: Acute Plan: Urinary tract infection Neurogenic bladder Paraplegic Thoracic spinal cord injury Severe edema hips/legs/scrotum, concern for nephrotic range proteinuria - This is a 32-year-old paraplegic patient presents to emergency department with tense bilateral lower extremity edema after starting Keflex for possible UTI - Urinalysis reviewed and reveals protein nitrates leukocyte esterase white blood cells clumps urine bacteria and urine mucus - Urine Culture (09/24) --> ESBL Klebsiella - Consulted ID - Pt is on Ertapenem per ID - Repeat Urine Culture (09/28) --> ESBL Klebsiella - ID recommending to continue IV antibiotic through the weekend and repeat the urine again on 09/30/17. - Pt had been on iv Lasix for severe edema and was switched to PO Lasix on . - 24hr urine with over 6 gm protein. - Nephrology consulted and felt that the etiology of proteinuria could be because of the neurogenic bladder and UTI but will need to r/o autoimmune disease - Renal US with Bilateral moderate hydronephrosis - C3 normal, C4 mildly elevated at 45 and ANCA is pending. - Vargas catheter in place - DVT prophylaxis with Lovenox 10/01/17 - repeat UA/Cx (09/30) --> gram negative spenser - continue IV Ertapenem - changed lasix to IV (10/01). Continue and observe response - repeat Renal US 10/01 --> hydronephrosis resolved - will further d/w covering ID 10/01 - Nephrology recommends repeating 24 urine protein once the pt's urinary infection has been completely treated. Sacral Wound - Pt with left and right ischial wounds - Wound care following and recommended: - Please cleanse wounds to bilateral ischial areas with normal saline or wound cleanser and pat dry. Apply wound VAC and bridge to Anterior thighs with Y connector. - Change dressing Sunday and Sunday this week and then change Sunday and Sunday - Please cleanse wounds to bilateral heels with normal saline or wound cleanser and pat dry. Apply Optifoam 4x4 gentle border to wounds and change every 3 days or PRN if saturated or dislodged. Constipation - colace - start scheduled lactulose - prn fleet enema, first now - repeat KUB in AM 10/02 (2) Neurogenic bladder ICD Codes: N31.9 - Neuromuscular dysfunction of bladder, unspecified Status: Acute (3) Sacral wound ICD Codes: S31.000A - Unspecified open wound of lower back and pelvis without penetration into retroperitoneum, initial encounter Status: Acute (4) Paraplegia ICD Codes: G82.20 - Paraplegia, unspecified Status: Chronic (5) Thoracic spinal cord injury ICD Codes: S24.109A - Unspecified injury at unspecified level of thoracic spinal cord, initial encounter Status: Chronic
[2017-10-01] MEDS: Enoxaparin Inj 40 MG/0.4 ML Syringe SQ SCH (17:57)
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
[2017-10-02] MEDS: Morphine Inj 4 MG/ML Vial IV.PUSH PRN ×5 (00:05→23:36)
[2017-10-02] MEDS: Docusate Sodium 100 MG Capsule PO SCH ×2 (08:55→21:02)
[2017-10-02] MEDS: buPROPion 150 MG 12 HR Tablet PO SCH (12:05)
[2017-10-02] MEDS: Enoxaparin Inj 40 MG/0.4 ML Syringe SQ SCH (17:46)
--- NOTE | 2017-10-02 20:22 | P.PN ---
Subjective Interval history: Patient is alert, no SOB, eating well. Physical Exam Vital signs: Vital Signs 10/02/17 00:00 10/02/17 04:00 10/02/17 04:25 Temperature 98 F 98.8 F Pulse Rate 74 75 Respiratory Rate 18 18 7 L Blood Pressure 114/57 L 122/60 Pulse Oximetry 95 94 L 10/02/17 08:00 10/02/17 10:36 10/02/17 12:00 Temperature 96.2 F L 96.0 F L Pulse Rate 78 74 Respiratory Rate 20 19 20 Blood Pressure 106/50 L 104/67 Pulse Oximetry 93 L 98 10/02/17 12:01 10/02/17 13:40 10/02/17 14:43 Temperature 96.0 F L Pulse Rate 74 Respiratory Rate 19 20 17 Blood Pressure 104/67 Pulse Oximetry 98 10/02/17 15:10 10/02/17 15:15 10/02/17 16:00 Temperature 98.2 F Pulse Rate 97 H Respiratory Rate 18 18 20 Blood Pressure 111/66 Pulse Oximetry 97 10/02/17 18:50 Temperature Pulse Rate Respiratory Rate 19 Blood Pressure Pulse Oximetry Intake & Output 10/02/17 10/02/17 10/03/17 06:59 18:59 06:59 Output Total 1000 / 1000 Balance -1000 / -1000 Output: Urine Amount (Catheter) 1000 / 1000 Indwelling Urethral Catheter 1000 / 1000 Other: Bladder Irrigation Fluid - Amount Drained Indwelling Urethral Catheter 1,000 Date of Last Bowel Movement 09/27/17 09/27/17 Narrative: No SOB, eating well. - Constitutional no acute distress - Routine HEENT Exam Head: Present: normocephalic ENT: Present: mucous membranes moist - Routine Neck Exam Present: supple, JVD - Routine Respiratory Exam Present: decreased breath sounds, CTA bilaterally - Routine Cardiovascular Exam Present: S1, S2 - Routine Abdominal Exam Present: soft, normoactive bowel sounds - Routine Extremities Exam Present: edema (moderate) - Routine Neurological Exam Present: alert, oriented X3 - Detailed Neurological Exam: Coma Scale Verbal Response: Oriented - Urinary Catheter Management Indwelling Urethral Catheter Cath placed during this visit: no Urethral indwelling: Yes Reason for continuing: Acute urinary retention Results - Labs CBC & Chem 7: 09/30/17 07:57 10/01/17 04:59 Microbiology 09/30/17 16:30 Catheterized Urine Urine Culture - Final Klebsiella pneumoniae ESBL pos Assessment and Plan - Assessment (1) Acute kidney injury Code(s): N17.9 - Acute kidney failure, unspecified Status: Acute (2) Proteinuria due to type 1 diabetes mellitus Code(s): E10.29 - Type 1 diabetes mellitus with other diabetic kidney complication; R80.9 - Proteinuria, unspecified Status: Acute (3) Proteinuria Code(s): R80.9 - Proteinuria, unspecified Status: Acute (4) Microscopic hematuria Code(s): R31.29 - Other microscopic hematuria Status: Acute (5) Neurogenic bladder Code(s): N31.9 - Neuromuscular dysfunction of bladder, unspecified Status: Acute - Attending Attestation (1) Proteinuria Code(s): N17.9 - Acute kidney failure, unspecified Status: Acute Plan: Patient has nephrotic range proteinuria we will do ADRIANA complements Anca level Patient has neurogenic bladder as well Kidney US with bilateral moderate hydronephrosis. Repeat renal ultrasound with no hydronephrosis C3 normal C4 mildly elevated 45 and ANCA is pending 24 hour urine with 6859 mg/24 H Etiology of proteinuria could be because of the neurogenic bladder/retention and uti r/o autoimmune disease On losartan for proteinuria Will need repeat urine protein after the infection is treatment. ( (2) Proteinuria due to type 1 diabetes mellitus Code(s): E10.29 - Type 1 diabetes mellitus with other diabetic kidney complication; R80.9 - Proteinuria, unspecified Status: Acute Plan: P (3) Proteinuria Code(s): R80.9 - Proteinuria, unspecified Status: Acute (4) Microscopic hematuria Code(s): R31.29 - Other microscopic hematuria Status: Acute (5) Neurogenic bladder Code(s): N31.9 - Neuromuscular dysfunction of bladder, unspecified Status: Acute Continue Lasix, Creatinine was normal yesterday.
--- NOTE | 2017-10-02 20:39 | P.PNIM ---
Subjective Interval history: constipation Physical Exam Vital signs: Vital Signs 10/02/17 00:00 10/02/17 04:00 10/02/17 04:25 Temperature 98 F 98.8 F Pulse Rate 74 75 Respiratory Rate 18 18 7 L Blood Pressure 114/57 L 122/60 Pulse Oximetry 95 94 L 10/02/17 08:00 10/02/17 10:36 10/02/17 12:00 Temperature 96.2 F L 96.0 F L Pulse Rate 78 74 Respiratory Rate 20 19 20 Blood Pressure 106/50 L 104/67 Pulse Oximetry 93 L 98 10/02/17 12:01 10/02/17 13:40 10/02/17 14:43 Temperature 96.0 F L Pulse Rate 74 Respiratory Rate 19 20 17 Blood Pressure 104/67 Pulse Oximetry 98 10/02/17 15:10 10/02/17 15:15 10/02/17 16:00 Temperature 98.2 F Pulse Rate 97 H Respiratory Rate 18 18 20 Blood Pressure 111/66 Pulse Oximetry 97 10/02/17 18:50 Temperature Pulse Rate Respiratory Rate 19 Blood Pressure Pulse Oximetry Intake & Output 10/02/17 10/02/17 10/03/17 06:59 18:59 06:59 Output Total 1000 / 1000 Balance -1000 / -1000 Output: Urine Amount (Catheter) 1000 / 1000 Indwelling Urethral Catheter 1000 / 1000 Other: Bladder Irrigation Fluid - Amount Drained Indwelling Urethral Catheter 1,000 Date of Last Bowel Movement 09/27/17 09/27/17 Narrative: GENERAL: This is a well-nourished, well-developed patient, in no apparent distress. CARDIOVASCULAR: Regular rate and rhythm without murmurs, gallops, or rubs. RESPIRATORY: Clear to auscultation. Breath sounds equal bilaterally. No wheezes , rales, or rhonchi. GASTROINTESTINAL: Abdomen soft, non-tender, nondistended. Normal active bowel sounds MUSCULOSKELETAL: 2+ b/l LE edema NEURO: Alert & Oriented x3, b/l LE paralysis - Urinary Catheter Management Indwelling Urethral Catheter Cath placed during this visit: no Urethral indwelling: Yes Reason for continuing: Acute urinary retention Results - Labs CBC & Chem 7: 09/30/17 07:57 10/01/17 04:59 Microbiology 09/30/17 16:30 Catheterized Urine Urine Culture - Final Klebsiella pneumoniae ESBL pos Assessment and Plan - Assessment (1) Urinary tract infection due to ESBL Klebsiella Code(s): N39.0 - Urinary tract infection, site not specified; B96.89 - Other specified bacterial agents as the cause of diseases classified elsewhere Status: Acute Plan: (1) Urinary tract infection ICD Codes: N39.0 - Urinary tract infection, site not specified Status: Acute Plan: Urinary tract infection Neurogenic bladder Paraplegic Thoracic spinal cord injury Severe edema hips/legs/scrotum, concern for nephrotic range proteinuria - This is a 32-year-old paraplegic patient presents to emergency department with tense bilateral lower extremity edema after starting Keflex for possible UTI - Urinalysis reviewed and reveals protein nitrates leukocyte esterase white blood cells clumps urine bacteria and urine mucus - Urine Culture (09/24) --> ESBL Klebsiella - Consulted ID - Pt is on Ertapenem per ID - Repeat Urine Culture (09/28) --> ESBL Klebsiella - ID ertapenem thru 10/08/17 - 24hr urine with over 6 gm protein. - continue IV lasix - Nephrology consulted and felt that the etiology of proteinuria could be because of the neurogenic bladder and UTI but will need to r/o autoimmune disease - Renal US with Bilateral moderate hydronephrosis - C3 normal, C4 mildly elevated at 45 and ANCA is pending. - Nephrology recommends repeating 24 urine protein once the pt's urinary infection has been completely treated. - Vargas catheter in place - DVT prophylaxis with Lovenox Sacral Wound - Pt with left and right ischial wounds - Wound care following and recommended: - Please cleanse wounds to bilateral ischial areas with normal saline or wound cleanser and pat dry. Apply wound VAC and bridge to Anterior thighs with Y connector. - Change dressing Sunday and Sunday this week and then change Sunday and Sunday - Please cleanse wounds to bilateral heels with normal saline or wound cleanser and pat dry. Apply Optifoam 4x4 gentle border to wounds and change every 3 days or PRN if saturated or dislodged. Constipation - colace - start scheduled lactulose (pt has been refusing) - prn fleet enema, first now - repeat KUB in AM 10/02 (pt refused) - gastrografin enema in AM if pt will allow (2) Neurogenic bladder ICD Codes: N31.9 - Neuromuscular dysfunction of bladder, unspecified Status: Acute (3) Sacral wound ICD Codes: S31.000A - Unspecified open wound of lower back and pelvis without penetration into retroperitoneum, initial encounter Status: Acute (4) Paraplegia ICD Codes: G82.20 - Paraplegia, unspecified Status: Chronic (5) Thoracic spinal cord injury ICD Codes: S24.109A - Unspecified injury at unspecified level of thoracic spinal cord, initial encounter Status: Chronic
[2017-10-03] MEDS: Docusate Sodium 100 MG Capsule PO SCH (08:11)
[2017-10-03] MEDS: buPROPion 150 MG 12 HR Tablet PO SCH (08:13)
[2017-10-03] MEDS: Morphine Inj 4 MG/ML Vial IV.PUSH PRN ×3 (08:23→19:13)
--- NOTE | 2017-10-03 12:40 | P.PNIM ---
Subjective Interval history: Pt reports that he had a BM last night and this morning. Physical Exam Vital signs: Vital Signs 10/02/17 13:40 10/02/17 14:43 10/02/17 15:10 Temperature 96.0 F L Pulse Rate 74 Respiratory Rate 20 17 18 Blood Pressure 104/67 Pulse Oximetry 98 10/02/17 15:15 10/02/17 16:00 10/02/17 18:50 Temperature 98.2 F Pulse Rate 97 H Respiratory Rate 18 20 19 Blood Pressure 111/66 Pulse Oximetry 97 10/03/17 00:00 10/03/17 04:00 10/03/17 08:00 Temperature 98.6 F 98.7 F 97.7 F Pulse Rate 77 73 74 Respiratory Rate 14 16 18 Blood Pressure 109/54 L 123/74 129/79 Pulse Oximetry 94 L 96 96 Intake & Output 10/02/17 10/03/17 10/03/17 18:59 06:59 18:59 Output Total 1400 / 1400 Balance -1400 / -1400 Output: Urine Amount (Catheter) 1400 / 1400 Indwelling Urethral Catheter 1400 / 1400 Other: Bladder Irrigation Fluid - Amount Drained Indwelling Urethral Catheter 1,000 Date of Last Bowel Movement 09/27/17 09/27/17 Narrative: GENERAL: This is a well-nourished, well-developed patient, in no apparent distress. CARDIOVASCULAR: Regular rate and rhythm without murmurs, gallops, or rubs. RESPIRATORY: Clear to auscultation. Breath sounds equal bilaterally. No wheezes , rales, or rhonchi. GASTROINTESTINAL: Abdomen soft, non-tender, nondistended. Normal active bowel sounds MUSCULOSKELETAL: 2+ b/l LE edema, pt feels this is now improved to his baseline. NEURO: Alert & Oriented x3, b/l LE paralysis - Urinary Catheter Management Indwelling Urethral Catheter Cath placed during this visit: no Urethral indwelling: Yes Reason for continuing: Acute urinary retention Results - Labs CBC & Chem 7: 09/30/17 07:57 10/01/17 04:59 Microbiology 09/30/17 16:30 Catheterized Urine Urine Culture - Final Klebsiella pneumoniae ESBL pos - Imaging ITS Impressions Abdomen X-Ray 09/30/17 00:00 CONCLUSION: No evidence of bowel obstruction, ileus or perforation. Abdomen/Bladder Ultrasound 10/01/17 08:00 CONCLUSION: 1. The previously noted bilateral hydronephrosis has resolved. Assessment and Plan - Assessment (1) Urinary tract infection due to ESBL Klebsiella Code(s): N39.0 - Urinary tract infection, site not specified; B96.89 - Other specified bacterial agents as the cause of diseases classified elsewhere Status: Acute Plan: (1) Urinary tract infection ICD Codes: N39.0 - Urinary tract infection, site not specified Status: Acute Plan: Urinary tract infection Neurogenic bladder Paraplegic Thoracic spinal cord injury Severe edema hips/legs/scrotum, concern for nephrotic range proteinuria - comgmt with Infectious Disease - This is a 32-year-old paraplegic patient presents to emergency department with tense bilateral lower extremity edema after starting Keflex for possible UTI - Urinalysis reviewed and reveals protein nitrates leukocyte esterase white blood cells clumps urine bacteria and urine mucus - Urine Culture (09/24) --> ESBL Klebsiella - Repeat Urine Culture (09/28) --> ESBL Klebsiella - ertapenem thru 10/08/17 per ID - 24hr urine with over 6 gm protein. - change lasix to PO - Nephrology consulted and felt that the etiology of proteinuria could be because of the neurogenic bladder and UTI but will need to r/o autoimmune disease - Renal US with Bilateral moderate hydronephrosis - Repeat Renal US (10/01) --> b/l hydronephrosis is resolved - C3 normal, C4 mildly elevated at 45. ADRIANA is negative - Nephrology recommends - repeating 24 urine protein once the pt's urinary infection has been completely treated. - 4-6 weeks after this hospitalization - Case d/w Dr. Mercedes (10/03/17) - Vargas catheter in place - DVT prophylaxis with Lovenox Sacral Wound - Pt with left and right ischial wounds - Wound care following and recommended: - Please cleanse wounds to bilateral ischial areas with normal saline or wound cleanser and pat dry. Apply wound VAC and bridge to Anterior thighs with Y connector. - Change dressing Sunday and Sunday this week and then change Sunday and Sunday - Please cleanse wounds to bilateral heels with normal saline or wound cleanser and pat dry. Apply Optifoam 4x4 gentle border to wounds and change every 3 days or PRN if saturated or dislodged. Constipation - colace - scheduled lactulose - prn fleet enema, first now - repeat KUB in AM 10/02 (pt refused) - gastrografin enema cancelled (10/03). Pt passing BMs (2) Neurogenic bladder ICD Codes: N31.9 - Neuromuscular dysfunction of bladder, unspecified Status: Acute (3) Sacral wound ICD Codes: S31.000A - Unspecified open wound of lower back and pelvis without penetration into retroperitoneum, initial encounter Status: Acute (4) Paraplegia ICD Codes: G82.20 - Paraplegia, unspecified Status: Chronic (5) Thoracic spinal cord injury ICD Codes: S24.109A - Unspecified injury at unspecified level of thoracic spinal cord, initial encounter Status: Chronic
--- NOTE | 2017-10-03 12:44 | P.PN ---
Subjective Interval history: Patient is alert, has lower abd. pain, had 2 BM since AM. Physical Exam Vital signs: Vital Signs 10/02/17 13:40 10/02/17 14:43 10/02/17 15:10 Temperature 96.0 F L Pulse Rate 74 Respiratory Rate 20 17 18 Blood Pressure 104/67 Pulse Oximetry 98 10/02/17 15:15 10/02/17 16:00 10/02/17 18:50 Temperature 98.2 F Pulse Rate 97 H Respiratory Rate 18 20 19 Blood Pressure 111/66 Pulse Oximetry 97 10/03/17 00:00 10/03/17 04:00 10/03/17 08:00 Temperature 98.6 F 98.7 F 97.7 F Pulse Rate 77 73 74 Respiratory Rate 14 16 18 Blood Pressure 109/54 L 123/74 129/79 Pulse Oximetry 94 L 96 96 Intake & Output 10/02/17 10/03/17 10/03/17 18:59 06:59 18:59 Output Total 1400 / 1400 Balance -1400 / -1400 Output: Urine Amount (Catheter) 1400 / 1400 Indwelling Urethral Catheter 1400 / 1400 Other: Bladder Irrigation Fluid - Amount Drained Indwelling Urethral Catheter 1,000 Date of Last Bowel Movement 09/27/17 09/27/17 Narrative: No SOB, eating well. - Constitutional no acute distress - Routine HEENT Exam Head: Present: normocephalic - Routine Neck Exam Present: supple, JVD - Routine Cardiovascular Exam Present: RRR, S1, S2 - Routine Abdominal Exam Present: soft, normoactive bowel sounds, distended - Routine Extremities Exam Present: edema (moderate.) - Routine Neurological Exam Present: alert, oriented X3 - Detailed Neurological Exam: Coma Scale Verbal Response: Oriented - Routine Psychiatric Exam Present: cooperative - Urinary Catheter Management Indwelling Urethral Catheter Cath placed during this visit: no Urethral indwelling: Yes Reason for continuing: Acute urinary retention Results - Labs CBC & Chem 7: 09/30/17 07:57 10/01/17 04:59 Microbiology 09/30/17 16:30 Catheterized Urine Urine Culture - Final Klebsiella pneumoniae ESBL pos Assessment and Plan - Assessment (1) Acute kidney injury Code(s): N17.9 - Acute kidney failure, unspecified Status: Acute (2) Proteinuria due to type 1 diabetes mellitus Code(s): E10.29 - Type 1 diabetes mellitus with other diabetic kidney complication; R80.9 - Proteinuria, unspecified Status: Acute (3) Proteinuria Code(s): R80.9 - Proteinuria, unspecified Status: Acute (4) Microscopic hematuria Code(s): R31.29 - Other microscopic hematuria Status: Acute (5) Neurogenic bladder Code(s): N31.9 - Neuromuscular dysfunction of bladder, unspecified Status: Acute - Plan (1) Proteinuria Code(s): N17.9 - Acute kidney failure, unspecified Status: Acute Plan: Patient has nephrotic range proteinuria we will do ADRIANA complements Anca level Patient has neurogenic bladder as well Kidney US with bilateral moderate hydronephrosis. Repeat renal ultrasound with no hydronephrosis C3 normal C4 mildly elevated 45 and ANCA is pending 24 hour urine with 6859 mg/24 H Etiology of proteinuria could be because of the neurogenic bladder/retention and uti r/o autoimmune disease On losartan for proteinuria Will need repeat urine protein after the infection is treatment, possibly in 4- 6 weeks. ( (2) Proteinuria due to type 1 diabetes mellitus Code(s): E10.29 - Type 1 diabetes mellitus with other diabetic kidney complication; R80.9 - Proteinuria, unspecified Status: Acute Plan: P (3) Proteinuria Code(s): R80.9 - Proteinuria, unspecified Status: Acute (4) Microscopic hematuria Code(s): R31.29 - Other microscopic hematuria Status: Acute (5) Neurogenic bladder Code(s): N31.9 - Neuromuscular dysfunction of bladder, unspecified Status: Acute Continue Lasix, Creatinine was normal , Continue diuretics, can change to PO tomorrow.
[2017-10-03] MEDS: Enoxaparin Inj 40 MG/0.4 ML Syringe SQ SCH (18:31)
[2017-10-04] MEDS: Docusate Sodium 100 MG Capsule PO SCH ×3 (00:21→20:23)
[2017-10-04] MEDS: Morphine Inj 4 MG/ML Vial IV.PUSH PRN ×4 (00:47→20:23)
[2017-10-04] MEDS: Furosemide 40 MG Tablet PO SCH ×2 (10:08→18:36)
[2017-10-04] MEDS: buPROPion 150 MG 12 HR Tablet PO SCH (10:09)
--- NOTE | 2017-10-04 13:25 | P.PNNP ---
Subjective Interval history: No complaints. Denies shortness of breath. <Elma Childress - Last Filed: 10/04/17 13:19> Physical Exam Vital signs: Vital Signs 10/03/17 13:45 10/03/17 16:00 10/03/17 21:00 Temperature 97.9 F 100.4 F H Pulse Rate 88 95 H Respiratory Rate 14 17 16 Blood Pressure 132/77 120/73 Pulse Oximetry 96 95 10/04/17 00:20 10/04/17 04:30 10/04/17 08:00 Temperature 99 F 98 F 98.0 F Pulse Rate 89 89 69 Respiratory Rate 16 16 20 Blood Pressure 125/67 117/64 129/92 H Pulse Oximetry 98 95 95 10/04/17 11:30 Temperature 97.6 F Pulse Rate 79 Respiratory Rate 20 Blood Pressure 129/68 Pulse Oximetry 97 Intake & Output 10/03/17 10/04/17 10/04/17 18:59 06:59 18:59 Intake Total 200 / 200 3000 / 3000 Output Total 1650 / 1650 3400 / 3400 Balance -1450 / -1450 -400 / -400 Weight 142.7 kg 143 kg Intake: IV 100 / 100 INVanz Inj 1,000 MG In NS Inj 100 / 100 100 ML @ 100 mls/hr IV.SIG Q24H YINA Rx#:[id number] Oral 100 / 100 3000 / 3000 Output: Urine 1650 / 1650 Urine Amount (Catheter) 3400 / 3400 Indwelling Urethral Catheter 3400 / 3400 Other: Date of Last Bowel Movement 10/03/17 # Bowel Movements 0 - Constitutional no acute distress - Routine HEENT Exam Head: Present: normocephalic ENT: Present: mucous membranes moist - Routine Neck Exam Present: supple. Absent: JVD - Routine Respiratory Exam Present: decreased breath sounds. Absent: rales, rhonchi, wheezes - Routine Cardiovascular Exam Present: RRR - Routine Abdominal Exam Present: soft, normoactive bowel sounds - Routine Extremities Exam Present: edema - Routine Skin Exam Present: warm - Routine Neurological Exam Present: alert, oriented X3 - Routine Psychiatric Exam Present: normal affect, cooperative - Urinary Catheter Management Indwelling Urethral Catheter Cath placed during this visit: no Urethral indwelling: Yes Reason for continuing: Acute urinary retention <Elma Childress - Last Filed: 10/04/17 13:19> Vital signs: Vital Signs 10/04/17 00:20 10/04/17 04:30 10/04/17 08:00 Temperature 99 F 98 F 98.0 F Pulse Rate 89 89 69 Respiratory Rate 16 16 20 Blood Pressure 125/67 117/64 129/92 H Pulse Oximetry 98 95 95 10/04/17 11:30 10/04/17 16:00 Temperature 97.6 F 98.6 F Pulse Rate 79 81 Respiratory Rate 20 20 Blood Pressure 129/68 120/65 Pulse Oximetry 97 98 Intake & Output 10/04/17 10/04/17 10/05/17 06:59 18:59 06:59 Intake Total 3000 / 3000 100 / 100 Output Total 3400 / 3400 550 / 550 Balance -400 / -400 -450 / -450 Weight 143 kg Intake: IV 100 / 100 INVanz Inj 1,000 MG In NS Inj 100 / 100 100 ML @ 100 mls/hr IV.SIG Q24H YINA Rx#:[id number] Oral 3000 / 3000 Output: Urine Amount (Catheter) 3400 / 3400 550 / 550 Indwelling Urethral Catheter 3400 / 3400 550 / 550 Other: Date of Last Bowel Movement 10/03/17 # Bowel Movements 0 - Urinary Catheter Management Indwelling Urethral Catheter Cath placed during this visit: no <Nia Mercedes Q - Last Filed: 10/04/17 22:40> Assessment and Plan - Assessment (1) Acute kidney injury Code(s): N17.9 - Acute kidney failure, unspecified Status: Acute Plan: Patient has nephrotic range proteinuria Patient has neurogenic bladder as well Kidney US with bilateral moderate hydronephrosis. Repeat renal ultrasound with no hydronephrosis C3 normal C4 mildly elevated 45 24 hour urine with 6859 mg/24 H Etiology of proteinuria could be because of the neurogenic bladder/retention and uti r/o autoimmune disease On losartan for proteinuria Recommend to repeat 24 urine for protein 4-6 weeks after this hospitalization. (2) Proteinuria due to type 1 diabetes mellitus Code(s): E10.29 - Type 1 diabetes mellitus with other diabetic kidney complication; R80.9 - Proteinuria, unspecified Status: Acute (3) Proteinuria Code(s): R80.9 - Proteinuria, unspecified Status: Acute (4) Neurogenic bladder Code(s): N31.9 - Neuromuscular dysfunction of bladder, unspecified Status: Acute <Elma Childress - Last Filed: 10/04/17 13:19> - Assessment (1) Acute kidney injury Code(s): N17.9 - Acute kidney failure, unspecified Status: Acute (2) Proteinuria due to type 1 diabetes mellitus Code(s): E10.29 - Type 1 diabetes mellitus with other diabetic kidney complication; R80.9 - Proteinuria, unspecified Status: Acute (3) Proteinuria Code(s): R80.9 - Proteinuria, unspecified Status: Acute (4) Neurogenic bladder Code(s): N31.9 - Neuromuscular dysfunction of bladder, unspecified Status: Acute - Attending Attestation Patient seen and examined, agree with above. Creatinine was normal, will need 24 hr. urine protein after 4-6 weeks of discharge. <Chi Mercedes - Last Filed: 10/04/17 22:40>
--- NOTE | 2017-10-04 15:18 | P.PNIM ---
Subjective Interval history: No new complaints. Physical Exam Vital signs: Vital Signs 10/03/17 16:00 10/03/17 21:00 10/04/17 00:20 Temperature 97.9 F 100.4 F H 99 F Pulse Rate 88 95 H 89 Respiratory Rate 17 16 16 Blood Pressure 132/77 120/73 125/67 Pulse Oximetry 96 95 98 10/04/17 04:30 10/04/17 08:00 10/04/17 11:30 Temperature 98 F 98.0 F 97.6 F Pulse Rate 89 69 79 Respiratory Rate 16 20 20 Blood Pressure 117/64 129/92 H 129/68 Pulse Oximetry 95 95 97 Intake & Output 10/03/17 10/04/17 10/04/17 18:59 06:59 18:59 Intake Total 200 / 200 3000 / 3000 Output Total 1650 / 1650 3400 / 3400 550 / 550 Balance -1450 / -1450 -400 / -400 -550 / -550 Weight 142.7 kg 143 kg Intake: IV 100 / 100 INVanz Inj 1,000 MG In NS Inj 100 / 100 100 ML @ 100 mls/hr IV.SIG Q24H YINA Rx#:[id number] Oral 100 / 100 3000 / 3000 Output: Urine 1650 / 1650 Urine Amount (Catheter) 3400 / 3400 550 / 550 Indwelling Urethral Catheter 3400 / 3400 550 / 550 Other: Date of Last Bowel Movement 10/03/17 # Bowel Movements 0 Narrative: GENERAL: This is a well-nourished, well-developed patient, in no apparent distress. CARDIOVASCULAR: Regular rate and rhythm without murmurs, gallops, or rubs. RESPIRATORY: Clear to auscultation. Breath sounds equal bilaterally. No wheezes , rales, or rhonchi. GASTROINTESTINAL: Abdomen soft, non-tender, nondistended. Normal active bowel sounds MUSCULOSKELETAL: 2+ b/l LE edema, pt feels this is now improved to his baseline. NEURO: Alert & Oriented x3, b/l LE paralysis - Urinary Catheter Management Indwelling Urethral Catheter Cath placed during this visit: no Urethral indwelling: Yes Reason for continuing: Acute urinary retention Results - Labs CBC & Chem 7: 09/30/17 07:57 10/01/17 04:59 Assessment and Plan - Assessment (1) Urinary tract infection due to ESBL Klebsiella Code(s): N39.0 - Urinary tract infection, site not specified; B96.89 - Other specified bacterial agents as the cause of diseases classified elsewhere Status: Acute Plan: (1) Urinary tract infection ICD Codes: N39.0 - Urinary tract infection, site not specified Status: Acute Plan: Urinary tract infection Neurogenic bladder Paraplegic Thoracic spinal cord injury Severe edema hips/legs/scrotum, concern for nephrotic range proteinuria - comgmt with Infectious Disease - This is a 32-year-old paraplegic patient presents to emergency department with tense bilateral lower extremity edema after starting Keflex for possible UTI - Urinalysis reviewed and reveals protein nitrates leukocyte esterase white blood cells clumps urine bacteria and urine mucus - Urine Culture (09/24) --> ESBL Klebsiella - Repeat Urine Culture (09/28) --> ESBL Klebsiella - ertapenem thru 10/08/17 per ID - 24hr urine with over 6 gm protein. - change lasix to PO - Nephrology consulted and felt that the etiology of proteinuria could be because of the neurogenic bladder and UTI but will need to r/o autoimmune disease - Renal US with Bilateral moderate hydronephrosis - Repeat Renal US (10/01) --> b/l hydronephrosis is resolved - C3 normal, C4 mildly elevated at 45. ADRIANA is negative - Nephrology recommends - repeating 24 urine protein once the pt's urinary infection has been completely treated. - 4-6 weeks after this hospitalization - Case d/w Dr. Mercedes (10/03/17) - Vargas catheter in place - DVT prophylaxis with Lovenox 10/04/17 - Pt interviewed and examined - continue current treatment plan - ertapenem thru 10/08 Sacral Wound - Pt with left and right ischial wounds - Wound care following and recommended: - Please cleanse wounds to bilateral ischial areas with normal saline or wound cleanser and pat dry. Apply wound VAC and bridge to Anterior thighs with Y connector. - Change dressing Sunday and Sunday this week and then change Sunday and Sunday - Please cleanse wounds to bilateral heels with normal saline or wound cleanser and pat dry. Apply Optifoam 4x4 gentle border to wounds and change every 3 days or PRN if saturated or dislodged. Constipation - colace - scheduled lactulose - prn fleet enema, first now - repeat KUB in AM 10/02 (pt refused) - gastrografin enema cancelled (10/03). Pt passing BMs (2) Neurogenic bladder ICD Codes: N31.9 - Neuromuscular dysfunction of bladder, unspecified Status: Acute (3) Sacral wound ICD Codes: S31.000A - Unspecified open wound of lower back and pelvis without penetration into retroperitoneum, initial encounter Status: Acute (4) Paraplegia ICD Codes: G82.20 - Paraplegia, unspecified Status: Chronic (5) Thoracic spinal cord injury ICD Codes: S24.109A - Unspecified injury at unspecified level of thoracic spinal cord, initial encounter Status: Chronic
[2017-10-04] MEDS: Enoxaparin Inj 40 MG/0.4 ML Syringe SQ SCH (18:37)
[2017-10-05] MEDS: Morphine Inj 4 MG/ML Vial IV.PUSH PRN ×4 (02:33→21:43)
[2017-10-05] MEDS: Furosemide 40 MG Tablet PO SCH ×2 (08:24→18:35)
[2017-10-05] MEDS: Docusate Sodium 100 MG Capsule PO SCH ×2 (08:25→21:43)
[2017-10-05] MEDS: buPROPion 150 MG 12 HR Tablet PO SCH (08:26)
--- NOTE | 2017-10-05 14:06 | P.PNIM ---
Subjective Interval history: No new complaints. Physical Exam Vital signs: Vital Signs 10/04/17 16:00 10/04/17 20:25 10/04/17 21:50 Temperature 98.6 F 98.8 F Pulse Rate 81 85 Respiratory Rate 20 16 16 Blood Pressure 120/65 130/77 Pulse Oximetry 98 99 10/04/17 23:26 10/05/17 00:40 10/05/17 03:45 Temperature 98 F 99 F Pulse Rate 80 88 Respiratory Rate 18 16 19 Blood Pressure 128/80 120/78 Pulse Oximetry 100 100 10/05/17 12:00 Temperature 98 F Pulse Rate 70 Respiratory Rate 18 Blood Pressure 131/74 Pulse Oximetry 100 Intake & Output 10/04/17 10/05/17 10/05/17 18:59 06:59 18:59 Intake Total 100 / 100 2750 / 2750 Output Total 550 / 550 1600 / 1600 Balance -450 / -450 1150 / 1150 Weight 38.5 kg 143.2 kg Intake: IV 100 / 100 INVanz Inj 1,000 MG In NS Inj 100 / 100 100 ML @ 100 mls/hr IV.SIG Q24H YINA Rx#:[id number] Oral 2750 / 2750 Output: Urine Amount (Catheter) 550 / 550 1600 / 1600 Indwelling Urethral Catheter 550 / 550 1600 / 1600 Other: Date of Last Bowel Movement 10/03/17 # Bowel Movements 0 Narrative: GENERAL: This is a well-nourished, well-developed patient, in no apparent distress. CARDIOVASCULAR: Regular rate and rhythm without murmurs, gallops, or rubs. RESPIRATORY: Clear to auscultation. Breath sounds equal bilaterally. No wheezes , rales, or rhonchi. GASTROINTESTINAL: Abdomen soft, non-tender, nondistended. Normal active bowel sounds MUSCULOSKELETAL: 2+ b/l LE edema, pt feels this is now improved to his baseline. NEURO: Alert & Oriented x3, b/l LE paralysis - Urinary Catheter Management Indwelling Urethral Catheter Cath placed during this visit: no Urethral indwelling: Yes Reason for continuing: Acute urinary retention Results - Labs CBC & Chem 7: 09/30/17 07:57 10/01/17 04:59 Assessment and Plan - Assessment (1) Urinary tract infection due to ESBL Klebsiella Code(s): N39.0 - Urinary tract infection, site not specified; B96.89 - Other specified bacterial agents as the cause of diseases classified elsewhere Status: Acute Plan: (1) Urinary tract infection ICD Codes: N39.0 - Urinary tract infection, site not specified Status: Acute Plan: Urinary tract infection Neurogenic bladder Paraplegic Thoracic spinal cord injury Severe edema hips/legs/scrotum, concern for nephrotic range proteinuria - comgmt with Infectious Disease - This is a 32-year-old paraplegic patient presents to emergency department with tense bilateral lower extremity edema after starting Keflex for possible UTI - Urinalysis reviewed and reveals protein nitrates leukocyte esterase white blood cells clumps urine bacteria and urine mucus - Urine Culture (09/24) --> ESBL Klebsiella - Repeat Urine Culture (09/28) --> ESBL Klebsiella - ertapenem thru 10/08/17 per ID - 24hr urine with over 6 gm protein. - change lasix to PO - Nephrology consulted and felt that the etiology of proteinuria could be because of the neurogenic bladder and UTI but will need to r/o autoimmune disease - Renal US with Bilateral moderate hydronephrosis - Repeat Renal US (10/01) --> b/l hydronephrosis is resolved - C3 normal, C4 mildly elevated at 45. ADRIANA is negative - Nephrology recommends - repeating 24 urine protein once the pt's urinary infection has been completely treated. - 4-6 weeks after this hospitalization - Case d/w Dr. Mercedes (10/03/17) - Vargas catheter in place - DVT prophylaxis with Lovenox 10/05/17 - Pt interviewed and examined - continue current treatment plan - ertapenem thru 10/08 - Anticipate discharge to home following last Invanz dose 10/08/17 Sacral Wound - Pt with left and right ischial wounds - Wound care following and recommended: - Please cleanse wounds to bilateral ischial areas with normal saline or wound cleanser and pat dry. Apply wound VAC and bridge to Anterior thighs with Y connector. - Change dressing Sunday and Sunday this week and then change Sunday and Sunday - Please cleanse wounds to bilateral heels with normal saline or wound cleanser and pat dry. Apply Optifoam 4x4 gentle border to wounds and change every 3 days or PRN if saturated or dislodged. Constipation - colace - scheduled lactulose - prn fleet enema, first now - repeat KUB in AM 10/02 (pt refused) - gastrografin enema cancelled (10/03). Pt passing BMs (2) Neurogenic bladder ICD Codes: N31.9 - Neuromuscular dysfunction of bladder, unspecified Status: Acute (3) Sacral wound ICD Codes: S31.000A - Unspecified open wound of lower back and pelvis without penetration into retroperitoneum, initial encounter Status: Acute (4) Paraplegia ICD Codes: G82.20 - Paraplegia, unspecified Status: Chronic (5) Thoracic spinal cord injury ICD Codes: S24.109A - Unspecified injury at unspecified level of thoracic spinal cord, initial encounter Status: Chronic
[2017-10-05] MEDS: Enoxaparin Inj 40 MG/0.4 ML Syringe SQ SCH (18:36)
[2017-10-06] MEDS: Morphine Inj 4 MG/ML Vial IV.PUSH PRN ×3 (06:21→18:32)
[2017-10-06] MEDS: buPROPion 150 MG 12 HR Tablet PO SCH (09:10)
[2017-10-06] MEDS: Docusate Sodium 100 MG Capsule PO SCH ×2 (09:10→21:50)
[2017-10-06] MEDS: Furosemide 40 MG Tablet PO SCH ×2 (09:14→17:28)
--- NOTE | 2017-10-06 15:50 | P.PNIM ---
Subjective Interval history: Pt has NO new complaints. Physical Exam Vital signs: Vital Signs 10/05/17 16:00 10/05/17 20:00 10/06/17 00:00 Temperature 98.3 F 97.5 F L 98.3 F Pulse Rate 67 99 H 90 Respiratory Rate 18 21 21 Blood Pressure 139/83 131/60 120/70 Pulse Oximetry 100 100 Narrative: GENERAL: This is a well-nourished, well-developed patient, in no apparent distress. CARDIOVASCULAR: Regular rate and rhythm without murmurs, gallops, or rubs. RESPIRATORY: Clear to auscultation. Breath sounds equal bilaterally. No wheezes , rales, or rhonchi. GASTROINTESTINAL: Abdomen soft, non-tender, nondistended. Normal active bowel sounds MUSCULOSKELETAL: 2+ b/l LE edema, pt feels this is now improved to his baseline. NEURO: Alert & Oriented x3, b/l LE paralysis - Urinary Catheter Management Indwelling Urethral Catheter Cath placed during this visit: no Urethral indwelling: Yes Reason for continuing: Acute urinary retention Results - Labs CBC & Chem 7: 09/30/17 07:57 10/01/17 04:59 Assessment and Plan - Assessment (1) Urinary tract infection due to ESBL Klebsiella Code(s): N39.0 - Urinary tract infection, site not specified; B96.89 - Other specified bacterial agents as the cause of diseases classified elsewhere Status: Acute Plan: (1) Urinary tract infection ICD Codes: N39.0 - Urinary tract infection, site not specified Status: Acute Plan: Urinary tract infection Neurogenic bladder Paraplegic Thoracic spinal cord injury Severe edema hips/legs/scrotum, concern for nephrotic range proteinuria - comgmt with Infectious Disease - This is a 32-year-old paraplegic patient presents to emergency department with tense bilateral lower extremity edema after starting Keflex for possible UTI - Urinalysis reviewed and reveals protein nitrates leukocyte esterase white blood cells clumps urine bacteria and urine mucus - Urine Culture (09/24) --> ESBL Klebsiella - Repeat Urine Culture (09/28) --> ESBL Klebsiella - ertapenem thru 10/08/17 per ID - 24hr urine with over 6 gm protein. - change lasix to PO - Nephrology consulted and felt that the etiology of proteinuria could be because of the neurogenic bladder and UTI but will need to r/o autoimmune disease - Renal US with Bilateral moderate hydronephrosis - Repeat Renal US (10/01) --> b/l hydronephrosis is resolved - C3 normal, C4 mildly elevated at 45. ADRIANA is negative - Nephrology recommends - repeating 24 urine protein once the pt's urinary infection has been completely treated. - 4-6 weeks after this hospitalization - Case d/w Dr. Mercedes (10/03/17) - Vargas catheter in place - DVT prophylaxis with Lovenox 10/06/17 - Pt interviewed and examined - continue current treatment plan - ertapenem thru 10/08 - Anticipate discharge to home following last Invanz dose 10/08/17 Sacral Wound - Pt with left and right ischial wounds - Wound care following and recommended: - Please cleanse wounds to bilateral ischial areas with normal saline or wound cleanser and pat dry. Apply wound VAC and bridge to Anterior thighs with Y connector. - Change dressing Sunday and Sunday this week and then change Sunday and Sunday - Please cleanse wounds to bilateral heels with normal saline or wound cleanser and pat dry. Apply Optifoam 4x4 gentle border to wounds and change every 3 days or PRN if saturated or dislodged. Constipation - colace - scheduled lactulose - prn fleet enema, first now - repeat KUB in AM 10/02 (pt refused) - gastrografin enema cancelled (10/03). Pt passing BMs (2) Neurogenic bladder ICD Codes: N31.9 - Neuromuscular dysfunction of bladder, unspecified Status: Acute (3) Sacral wound ICD Codes: S31.000A - Unspecified open wound of lower back and pelvis without penetration into retroperitoneum, initial encounter Status: Acute (4) Paraplegia ICD Codes: G82.20 - Paraplegia, unspecified Status: Chronic (5) Thoracic spinal cord injury ICD Codes: S24.109A - Unspecified injury at unspecified level of thoracic spinal cord, initial encounter Status: Chronic
[2017-10-06] MEDS: Enoxaparin Inj 40 MG/0.4 ML Syringe SQ SCH (17:29)
[2017-10-07] MEDS: Morphine Inj 4 MG/ML Vial IV.PUSH PRN ×4 (00:52→21:13)
[2017-10-07] MEDS: buPROPion 150 MG 12 HR Tablet PO SCH (08:05)
[2017-10-07] MEDS: Docusate Sodium 100 MG Capsule PO SCH ×2 (08:06→20:36)
[2017-10-07] MEDS: Furosemide 40 MG Tablet PO SCH ×2 (08:52→17:37)
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
[2017-10-07 12:05] LABS: Anion Gap 6 meq/L (5-15); Blood Urea Nitrogen 15 mg/dL (7-18); Calcium 8.8 mg/dL (8.5-10.1); Carbon Dioxide 32.9 meq/L (21.0-32.0); Chloride 100 meq/L (98-107); Glomerular Filtration Rate Greater Than 89 mL/min (>89); Glucose,Random 90 mg/dL (74-106); Potassium 3.9 meq/L (3.5-5.1); Sodium 139 meq/L (136-145)
--- NOTE | 2017-10-07 12:15 | P.PNIM ---
Subjective Interval history: Follow up: complicated UTI Patient reports doing well offers no new concerns/complaints looking forward to DC home tomorrow after last dose of IV abx Physical Exam Vital signs: Vital Signs 10/06/17 16:00 10/06/17 20:00 10/06/17 21:50 Temperature 98.6 F 97.8 F Pulse Rate 86 68 Respiratory Rate 18 17 18 Blood Pressure 126/73 130/66 Pulse Oximetry 98 95 10/07/17 00:00 10/07/17 00:54 10/07/17 01:43 Temperature 97.6 F Pulse Rate 70 Respiratory Rate 18 18 18 Blood Pressure 129/69 Pulse Oximetry 95 10/07/17 02:17 10/07/17 03:40 10/07/17 04:00 Temperature 97.5 F L Pulse Rate 62 Respiratory Rate 18 18 16 Blood Pressure 120/60 Pulse Oximetry 94 L 10/07/17 08:00 Temperature 97.8 F Pulse Rate 90 Respiratory Rate 20 Blood Pressure 132/74 Pulse Oximetry 95 Intake & Output 10/06/17 10/07/17 10/07/17 18:59 06:59 18:59 Intake Total 100 / 100 240 / 240 100 / 100 Output Total 1800 / 1800 350 / 350 Balance -1700 / -1700 -110 / -110 100 / 100 Weight 134 kg Intake: IV 100 / 100 100 / 100 INVanz Inj 1,000 MG In NS Inj 100 / 100 100 / 100 100 ML @ 100 mls/hr IV.SIG DAILY YINA Rx#:[id number] Oral 240 / 240 Output: Urine Amount (Catheter) 1800 / 1800 350 / 350 Indwelling Urethral Catheter 1800 / 1800 350 / 350 Other: Date of Last Bowel Movement 10/03/17 10/06/17 # Incontinent Bowel Movements 1 Narrative: GENERAL: This is a well-nourished, well-developed patient, in no apparent distress. CARDIOVASCULAR: Regular rate and rhythm RESPIRATORY: Clear to auscultation. Breath sounds equal bilaterally. No wheezes , rales, or rhonchi. GASTROINTESTINAL: Abdomen soft, non-tender, nondistended. Normal active bowel sounds MUSCULOSKELETAL: 1+ to trace b/l LE edema, pt feels this is now improved to his baseline. NEURO: Alert & Oriented x3, b/l LE paralysis - Urinary Catheter Management Indwelling Urethral Catheter Cath placed during this visit: no Urethral indwelling: Yes Reason for continuing: Acute urinary retention Results - Labs CBC & Chem 7: 09/30/17 07:57 10/07/17 11:20 Laboratory Results - last 24 hr 10/07/17 11:20 Sodium 139 Potassium 3.9 Chloride 100 Carbon Dioxide 32.9 H Anion Gap 6 BUN 15 Creatinine 0.80 Estimated GFR Greater than 89 Random Glucose 90 Calcium 8.8 Assessment and Plan - Assessment (1) Urinary tract infection due to ESBL Klebsiella Code(s): N39.0 - Urinary tract infection, site not specified; B96.89 - Other specified bacterial agents as the cause of diseases classified elsewhere Status: Acute Plan: (1) Urinary tract infection ICD Codes: N39.0 - Urinary tract infection, site not specified Status: Acute Plan: Urinary tract infection Neurogenic bladder Paraplegic Thoracic spinal cord injury Severe edema hips/legs/scrotum, concern for nephrotic range proteinuria - comgmt with Infectious Disease - This is a 32-year-old paraplegic patient presents to emergency department with tense bilateral lower extremity edema after starting Keflex for possible UTI - Urinalysis reviewed and reveals protein nitrates leukocyte esterase white blood cells clumps urine bacteria and urine mucus - Urine Culture (09/24) --> ESBL Klebsiella - Repeat Urine Culture (09/28) --> ESBL Klebsiella - ertapenem thru 10/08/17 per ID - 24hr urine with over 6 gm protein. - change lasix to PO - Nephrology consulted and felt that the etiology of proteinuria could be because of the neurogenic bladder and UTI but will need to r/o autoimmune disease - Renal US with Bilateral moderate hydronephrosis - Repeat Renal US (10/01) --> b/l hydronephrosis is resolved - C3 normal, C4 mildly elevated at 45. ADRIANA is negative - Nephrology recommends - repeating 24 urine protein once the pt's urinary infection has been completely treated. - 4-6 weeks after this hospitalization - Case d/w Dr. Mercedes (10/03/17) - Vargas catheter in place - DVT prophylaxis with Lovenox 10/06/17 - Pt interviewed and examined - continue current treatment plan - ertapenem thru 10/08 - Anticipate discharge to home following last Invanz dose 10/08/17 Sacral Wound - Pt with left and right ischial wounds - Wound care following and recommended: - Please cleanse wounds to bilateral ischial areas with normal saline or wound cleanser and pat dry. Apply wound VAC and bridge to Anterior thighs with Y connector. - Change dressing Sunday and Sunday this week and then change Sunday and Sunday - Please cleanse wounds to bilateral heels with normal saline or wound cleanser and pat dry. Apply Optifoam 4x4 gentle border to wounds and change every 3 days or PRN if saturated or dislodged. Constipation - colace - scheduled lactulose - prn fleet enema, first now - repeat KUB in AM 10/02 (pt refused) - gastrografin enema cancelled (10/03). Pt passing BMs (2) Neurogenic bladder ICD Codes: N31.9 - Neuromuscular dysfunction of bladder, unspecified Status: Acute (3) Sacral wound ICD Codes: S31.000A - Unspecified open wound of lower back and pelvis without penetration into retroperitoneum, initial encounter Status: Acute (4) Paraplegia ICD Codes: G82.20 - Paraplegia, unspecified Status: Chronic (5) Thoracic spinal cord injury ICD Codes: S24.109A - Unspecified injury at unspecified level of thoracic spinal cord, initial encounter Status: Chronic - Plan Patient examined. Assessment and plan formulated with Donna Major PA-C. I agree with the above.
--- NOTE | 2017-10-07 16:35 | P.DCO ---
- Home Health Nursing Order: Wound care and dressing changes Instructions: resume previous [facility] - Certification I have seen patient Wilber Andrade on 10/07/17. My clinical findings support the need for the requested home health care services because: Limited mobility due to disease progression I certify that my clinical findings support that this patient is homebound because: Unable to use public transportation
[2017-10-07] MEDS: Enoxaparin Inj 40 MG/0.4 ML Syringe SQ SCH (17:37)
[2017-10-08] MEDS: Morphine Inj 4 MG/ML Vial IV.PUSH PRN ×2 (03:26→09:52)
[2017-10-08 09:44] VITALS: BP 131/70; PULSE 85; TEMP 97.8; O2SAT 96
[2017-10-08] MEDS: Docusate Sodium 100 MG Capsule PO SCH (09:44)
[2017-10-08] MEDS: buPROPion 150 MG 12 HR Tablet PO SCH (09:45)
[2017-10-08] MEDS: Furosemide 40 MG Tablet PO SCH (10:10)
[2017-10-08 14:38] VITALS: RESP 18
== END 2017-10-08 12:53 | disposition home health service (06) ==
LOC: N05 10:26
PROVIDERS: ADMIT Hospitalist; ATTEND Hospitalist